=== PATIENT | female | born 1940 | race Caucasian/White ===

== ENCOUNTER 2022-01-22 17:18 | Emergency (ER) | payer OTHER, SELFPAY ==
[2022-01-22 17:37] VITALS: BP 193/72; PULSE 80; RESP 28; TEMP 37.1; O2SAT 94; BMI 22.6
--- NOTE | 2022-01-22 17:50 | CRLHL7_ITS ---
For Patients: As a result of the Century Cures Act, medical imaging exams and procedure reports are released immediately into your electronic medical record. You may view this report before your referring provider. If you have questions, please contact your health care provider. INDICATION: COPD. COMPARISON: July 23, 2021. TECHNIQUE: Single chest radiograph. FINDINGS: Stable cardiomediastinal contours. No new pulmonary opacities. Probable mild bibasilar scarring/atelectasis. No significant pleural effusion or pneumothorax. IMPRESSION: No acute cardiopulmonary abnormality. Dictated by Evan Taylor MD @ 01/22/2022 6:33:44 PM (Electronically Signed)
--- NOTE | 2022-01-22 17:52 | ED.GENADULT ---
HPI - General Adult General Time Seen by Provider: 17:53 Date Seen: 01/22/22 Chief complaint: Shortness of Breath/Dyspnea Stated complaint: Shortness of breath Time Seen by Provider: 01/22/22 17:39 Source: patient Mode of arrival: ambulatory Limitations: no limitations History of Present Illness HPI narrative: Patient is a 81 white female with history of COPD, she has taken Spiriva and albuterol inhalers, she has not used her nebulizer today. She reports she has had a cough and worsening breathing over the last week. She has taken some home COVID test has been negative. She has taken steroids in the past that have helped her. She has had no chest pain, no production to her cough other than usual yellow to whitish material, no leg swelling, no edema, no history of clotting or bleeding problems no coronary artery history. Related Data Home Medications Medication Instructions Recorded Confirmed albuterol sulfate 90 mcg/actuation 1 puff inhalation PRN 01/22/22 aerosol inhaler cyanocobalamin (vitamin B-12) 1,000 mcg PO DAILY 01/22/22 01/22/22 1,000 mcg tablet fluticasone 250 mcg-salmeterol 50 1 inh inhalation DAILY 01/22/22 01/22/22 mcg/dose blistr powdr for inhalation ipratropium 0.5 mg-albuterol 3 mg 3 ml inhalation PRN 01/22/22 (2.5 mg base)/3 mL nebulization soln levothyroxine 75 mcg tablet 75 mcg PO DAILY 01/22/22 01/22/22 metoprolol succinate 100 mg 100 mg PO DAILY 01/22/22 01/22/22 tablet,extended release 24 hr omeprazole 20 mg capsule,delayed 20 mg PO PRN 01/22/22 release tiotropium bromide 18 mcg capsule 1 cap inhalation DAILY 01/22/22 01/22/22 with inhalation device (Spiriva with HandiHaler) Previous Rx's Medication Instructions Recorded doxycycline hyclate 100 mg capsule 100 mg PO BID 7 days #14 caps 01/22/22 prednisone 20 mg tablet 20 mg PO BID #10 tabs 01/22/22 Allergies Allergy/AdvReac Type Severity Reaction Status Date / Time No Known Drug Allergies Allergy Verified 01/22/22 17:42 Review of Systems Status of ROS: Reports: 10 or more systems reviewed and unremarkable except as noted in History and below PFSH PFSH Social History Smoking Status: Former smoker How often do you have a drink containing alcohol: never AUDIT-C Alcohol total score: 0 Non-prescribed substance use: denies use Exam Narrative: Exam Narrative: Objective: Patient's vital signs show elevated blood pressure, afebrile, O2 sat 94% on room air. She is noncyanotic, she does have a little bit of audible wheezing HEENT is unremarkable Chest is wheezing in the mid to lower lung hartman no rales noted Heart rhythm regular 2/6 systolic murmur Abdomen benign soft Extremities are no edema neurologic nonfocal, good peripheral perfusion Neurologic is nonfocal Const: Vital Signs, click to edit/add: Vital Signs - 24 hr 01/22/22 17:37 Temperature 98.7 F Pulse Rate [Right Pulse Oximeter] 80 Respiratory Rate 28 H Blood Pressure [Ri ght Upper Arm] 193/72 H Pulse Oximetry 94 Oxygen Delivery Me thod Room Air Course Vital Signs Vital signs: Initial Vital Signs Temperature 98.7 F 01/22/22 17:37 Temperature Source Temporal Artery Scan 01/22/22 17:37 Pulse Rate 80 01/22/22 17:37 Respiratory Rate 28 H 01/22/22 17:37 Blood Pressure 193/72 H 01/22/22 17:37 Blood Pressure Mean 112 01/22/22 17:37 Blood Pressure Position Sitting 01/22/22 17:37 Pulse Oximetry 94 01/22/22 17:37 Oxygen Delivery Method 01/22/22 17:37 Vital Signs Temperature 98.7 F 01/22/22 17:37 Pulse Rate 80 01/22/22 17:37 Respiratory Rate 28 H 01/22/22 17:37 Blood Pressure 193/72 H 01/22/22 17:37 Pulse Oximetry 94 01/22/22 17:37 Oxygen Delivery Method 01/22/22 17:37 Temperature 98.7 F 01/22/22 17:37 Pulse Rate 80 01/22/22 17:37 Respiratory Rate 28 H 01/22/22 17:37 Blood Pressure 193/72 H 01/22/22 17:37 Pulse Oximetry 94 01/22/22 17:37 Oxygen Delivery Method 01/22/22 17:37 Medical Decision Making MDM Narrative Medical decision making narrative: The patient has history of COPD, she takes inhalers, at this point I think she would benefit from doxycycline orally as well as prednisone 50 mg orally and a course of prednisone, will give her a DuoNeb in [place] she feels. She might be able to continue her nebs at home and make some improvement with medications. Will see how she responds. Addendum: The patient's x-ray by my review review looks unremarkable other than COPD hyperinflation dairy changes. She feels substantially better after her neb. her O2 sat is adequate. I think she will improve with the prednisone and the doxycycline, she can use her nebulizer, and inhalers at home. Update her regular doctor within the next 24-48 hours her symptoms, there is a chance that she may continue to have difficulty breathing and she needs to return and she agrees to do so. With the patient's nice response and response to nebulization, I would recommend she use her home nebulizer as well and she agrees to do so. She feels much more comfortable and I think the prednisone will help her, she does not improve her has requesting symptoms again she can return to the ED at any time. Lab Data Labs: Lab Results 01/22/22 Range/Units 17:52 SARS-CoV-2 (PCR) Negative SARS-CoV-2 (Negative) Influenza Type A (PCR) Negative PCR FLU A (Negative) Influenza Type B (PCR) Negative PCR FLU B (Negative) RSV (PCR) Negative PCR RSV (Negative) Discharge Plan Discharge Clinical Impression: Acute exacerbation of chronic obstructive pulmonary disease Patient Disposition: Home, Self-Care Condition: Improved Additional Instructions: Continue home inhalers, doxycycline 100 mg b.i.d. x7 days, prednisone 20 mg b.i.d. x5 days, return if problems concerns worsening, follow-up with primary care in 48 hours Activity Level: Light activity Discharge Diet: Regular Prescriptions: New prednisone 20 mg tablet 20 mg PO BID Qty: 10 0RF doxycycline hyclate 100 mg capsule 100 mg PO BID 7 Days Qty: 14 0RF No Action albuterol sulfate 90 mcg/actuation HFA aerosol inhaler 1 puff INHALATION PRN cyanocobalamin (vitamin B-12) 1,000 mcg tablet 1,000 mcg PO DAILY fluticasone propion-salmeterol 250-50 mcg/dose blister with device 1 inh INHALATION DAILY ipratropium-albuterol 0.5 mg-3 mg(2.5 mg base)/3 mL solution for nebulization 3 ml INHALATION PRN levothyroxine 75 mcg tablet 75 mcg PO DAILY metoprolol succinate 100 mg tablet extended release 24 hr 100 mg PO DAILY omeprazole 20 mg capsule,delayed release(DR/EC) 20 mg PO PRN Spiriva with HandiHaler 18 mcg capsule, w/inhalation device 1 cap INHALATION DAILY Stand Alone Forms: [facility] Info Instructions
[2022-01-22] MEDS: DOXYCYCLINE HYCLATE 100 MG CAPSULE PO (18:10)
[2022-01-22] MEDS: IPRAT-ALBUT 0.5-2.5 MG/3 ML NEB 1 NEB IH (18:10)
[2022-01-22] MEDS: predniSONE 10 MG TABLET 50 MG PO (18:10)
--- NOTE | 2022-01-22 18:53 | ED.NURSE ---
pt feeling better after neb. sitting up on edge of bed.
[2022-01-22 19:04] LABS: PCR FLU A Negative PCR FLU A (Negative); PCR FLU B Negative PCR FLU B (Negative); PCR RSV Negative PCR RSV (Negative)
[2022-01-22 19:13] LABS: SARS PCR* Negative SARS-CoV-2 (Negative)
== END 2022-01-22 19:20 | disposition home or self-care (01) ==
LOC: ED 19:19
PROVIDERS: Emergency Provider Family Medicine; PCP Family Medicine
DX: J44.1 Chronic obstructive pulmonary disease with (acute) exacerbation (principal)
CPT/HCPCS: 71045; 87502; 87634; 87635; 94640; 99284; A9270; J7512

== ENCOUNTER 2022-03-03 19:12 | Emergency (ER) | payer OTHER, SELFPAY ==
[2022-03-03] VITALS (11 sets, daily range): BP systolic 194–215; BP diastolic 95–108; PULSE 74–92; RESP 18; TEMP 37.1; O2SAT 88–99; BMI 24.5
--- NOTE | 2022-03-03 19:34 | ED_ITS ---
HPI - General Adult General Time Seen by Provider: 19:34 Date Seen: 03/03/22 Chief complaint: Abdominal Pain Stated complaint: Sharp Pain Right Side,Vomiting Time Seen by Provider: 03/03/22 19:34 Source: patient, family and RN notes reviewed Mode of arrival: ambulatory Limitations: no limitations History of Present Illness HPI narrative: Patient is an 82-year-old female coming in with right-sided abdominal pain associated with 2 episodes of emesis recently. She did eat and drink this morning. This afternoon started with abdominal pain that is worsening. She is now nauseated, had 2 episodes of emesis prior to arrival. Had a normal bowel movement yesterday. Has not passing stool today. Has never had any abdominal surgeries. No urinary symptoms. No fevers or chills. She states she has had COVID before, is fully vaccinated for it. Has not been sick with any respiratory symptoms. No stool today, not passing gas today. Patient denies feeling bloated. Related Data Home Medications Medication Instructions Recorded Confirmed albuterol sulfate 90 mcg/actuation 1 puff inhalation PRN 01/22/22 aerosol inhaler cyanocobalamin (vitamin B-12) 1,000 mcg PO DAILY 01/22/22 01/22/22 1,000 mcg tablet fluticasone 250 mcg-salmeterol 50 1 inh inhalation DAILY 01/22/22 01/22/22 mcg/dose blistr powdr for inhalation ipratropium 0.5 mg-albuterol 3 mg 3 ml inhalation PRN 01/22/22 (2.5 mg base)/3 mL nebulization soln levothyroxine 75 mcg tablet 75 mcg PO DAILY 01/22/22 01/22/22 metoprolol succinate 100 mg 100 mg PO DAILY 01/22/22 01/22/22 tablet,extended release 24 hr omeprazole 20 mg capsule,delayed 20 mg PO PRN 01/22/22 release tiotropium bromide 18 mcg capsule 1 cap inhalation DAILY 01/22/22 01/22/22 with inhalation device (Spiriva with HandiHaler) Previous Rx's Medication Instructions Recorded doxycycline hyclate 100 mg capsule 100 mg PO BID 7 days #14 caps 01/22/22 prednisone 20 mg tablet 20 mg PO BID #10 tabs 01/22/22 Allergies Allergy/AdvReac Type Severity Reaction Status Date / Time No Known Drug Allergies Allergy Verified 01/22/22 17:42 Review of Systems Status of ROS: Reports: 10 or more systems reviewed and unremarkable except as noted in History and below PFSH [facility] Social History Smoking Status: Former smoker How often do you have a drink containing alcohol: never AUDIT-C Alcohol total score: 0 Non-prescribed substance use: denies use Exam Const: Vital Signs, click to edit/add: Vital Signs - 24 hr 03/03/22 19:36 03/03/22 19:36 03/03/22 19:48 Temperature 98.8 F Pulse Rate Pulse Rate [Right Pulse Oximeter] 92 Respiratory Rate 18 Blood Pressure Blood Pressure [Ri ght Upper Arm] 208/108 H Pulse Oximetry 96 96 88 Oxygen Delivery Me thod Room Air Room Air 03/03/22 19:50 03/03/22 20:04 03/03/22 20:16 Temperature Pulse Rate 81 Pulse Rate [Right Pulse Oximeter] Respiratory Rate Blood Pressure 215/95 H Blood Pressure [Ri ght Upper Arm] Pulse Oximetry 92 98 Oxygen Delivery Me thod Nasal Cannula Documenting provider has reviewed patient's vital signs: yes Common normals: oriented x3, no limitations and alert General appearance: cooperati ve, well kempt, in distress (Moaning at times in discomfort) and ill appearing Nutritional appearance: overweight HENMT: Common normals: normocephalic, head/scalp atraumatic, hearing grossly normal bilaterally, external ears normal, external nose normal, nasal mucous membranes and turbinates normal, moist oral mucous membranes, oropharynx normal, dentition normal and gingiva normal Head and scalp: normocephalic and atraumatic Nose: external nose normal and nasal mucous membranes and turbinates normal External ear: external ears normal Eye: Common normals: PERRL, EOMs intact bilaterally, conjunctivae normal and no scleral icterus Conjunctiva: conjunctiva(e) normal Pupil: PERRL Neck & C-Spine: Common normals: full ROM, no lymphadenopathy, supple, no meningeal signs, no JVD and thyroid normal Thyroid: thyroid normal Resp: Common normals: normal respiratory effort, no retractions, no use of accessory muscles and clear to auscultation bilaterally Auscultation: clear to auscultation bilaterally Cardio: Common normals: no JVD, regular rate, regular rhythm, S1 normal heart sound, S2 normal heart sound, no gallops, no clicks and no murmurs Rate: regular rate Rhythm: regular rhythm Heart sounds: S1 normal and S2 normal GI: Other: Belly seems distended, do not hear any bowel sounds when I listen. Has some mild right upper quadrant tenderness that progresses to more significant right lower quadrant tenderness on palpation. Do not feel any masses but she is guarding a bit, no rebound at this time. Neuro: Common normals: oriented x3 Sensorium/orientation: alert Meningeal signs: no meningeal signs Psych: Appearance: well kempt Course Course Hospital Course: This patient obviously needs a CT scan, will be ordered with IV contrast of abdomen and pelvis. She will be on cardiac monitoring, pulse oximetry. Will do influenza and COVID screening on her. Will treat her with 500 mL normal saline, 50 mcg IV fentanyl and 4 mg IV Zofran. She will get full complement of labs. Obstructive abdominal pathology certainly is at forefront in my mind here. She however has not had abdominal surgery before on questioning. This certainly could be an ileus, could be appendicitis. We need imaging to rule out an acute surgical abdomen here. We will try to make her more comfortable in the interim. Reevaluation(s) Reevaluation #1: Have just reviewed with patient and her family member that her CT showing a kidney stone. It is larger at 7 mm. She has never had kidney stones diagnosed before. She also is testing positive for COVID. She states she had COVID before actually in July of this year, I was thinking she maybe told me the fall but it was actually July of this year. We will test an antigen on her. She states she is fully vaccinated for COVID. She was in her doctor's office this week but states they did not test. She was not in for illness per report. I did subsequently call [facility] and their [place] facilities are [place], on [place]. I have subsequently talked to our hospitalist. We may have to work on pain management and then get her outpatient urology follow-up. Our hospitalist Dr. Juarez will get back to me regarding this patient. Time: 20:55 Reevaluation #2: Patient was taken by staff to the bathroom to collect urinalysis. The sample had a large round stone in it, certainly looked about 7 mm. We did show it to the patient and her family member. She states she is feeling fine now. She surprisingly has passed a 7 mm stone. We will obtain her urinalysis, I have added on a stone analysis. She is not going to need hospitalization at this point. We still have the unanswered question whether not she has COVID, patient states she is feeling fine as far as respiratory status. Her only pain was the abdominal pain which is now gone. We did collect a antigen on her. If the antigen comes back negative and she is asymptomatic, would have patient follow her symptoms for few days. Time: 21:11 Vital Signs Vital signs: Initial Vital Signs Temperature 98.8 F 03/03/22 19:36 Temperature Source Temporal Artery Scan 03/03/22 19:36 Pulse Rate 92 03/03/22 19:36 Respiratory Rate 18 03/03/22 19:36 Blood Pressure 208/108 H 03/03/22 19:36 Blood Pressure Mean 141 03/03/22 19:36 Blood Pressure Position Supine 03/03/22 19:36 Pulse Oximetry 96 03/03/22 19:36 Oxygen Delivery Method 03/03/22 19:36 Vital Signs Temperature 98.8 F 03/03/22 19:36 Pulse Rate 92 03/03/22 19:36 Respiratory Rate 18 03/03/22 19:36 Blood Pressure 208/108 H 03/03/22 19:36 Pulse Oximetry 96 03/03/22 19:36 Oxygen Delivery Method 03/03/22 19:36 Temperature 98.8 F 03/03/22 19:36 Pulse Rate 81 03/03/22 20:16 Respiratory Rate 18 03/03/22 19:36 Blood Pressure 215/95 H 03/03/22 20:04 Pulse Oximetry 98 03/03/22 20:16 Oxygen Delivery Method 03/03/22 19:50 Medical Decision Making Lab Data Lab results reviewed: Yes I reviewed the patient's lab results Labs: Lab Results 03/03/22 03/03/22 03/03/22 Range/Units 19:30 19:37 19:40 WBC 15.06 H (4.50-11.00) K/uL RBC 5.47 H (4.00-5.20) m/uL Hgb 14.5 (12.0-16.0) gm/dL Hct 46.9 (33.0-51.0) % MCV 86 (80-100) fL MCH 27 (26-34) pg MCHC 31 L (32-36) gm/dL RDW Coeff of Ministerio 14.5 (11.5-15.5) % Plt Count 349 (140-440) K/uL Neut % (Auto) 86.8 H (42.0-72.0) % Lymph % (Auto) 5.6 L (20-44) % Jerauld % (Auto) 6.2 (0.0-11.0) % Eos % (Auto) 0.7 (0.0-7.0) % Baso % (Auto) 0.2 (0.0-3.0) % Neut # (Auto) 13.10 H (1.7-7.0) K/uL Lymph # (Auto) 0.80 L (0.90-2.90) K/uL Jerauld # (Auto) 0.90 (0.00-0.90) K/UL Eos # (Auto) 0.10 (0.00-0.50) K/uL Baso # (Auto) 0.00 (0.00-0.30) K/uL Abs Immat Gran (auto) 0.10 (0.00-0.30) K/uL Imm/Tot Granulo (auto) 0.5 % Sodium (135-149) mmol/L Potassium (3.6-5.1) mmol/L Chloride (96-114) mmol/L Carbon Dioxide (20-32) mmol/L BUN (7-30) mg/dL Creatinine (0.5-1.5) mg/dL Estimated Creat Clear Estimated GFR ml/min Glucose (60-115) mg/dL Lactate (0.5-1.9) mmol/L Calcium (8.4-10.6) mg/dL Total Bilirubin (0.1-1.5) mg/dL AST (12-35) U/L ALT (4-35) U/L Alkaline Phosphatase (40-150) U/L C-Reactive Protein (0.5-1.0) mg/dL Total Protein (6.0-8.3) g/dL Albumin (3.3-5.0) g/dL Lipase (23-300) U/L SARS-CoV-2 (PCR) POSITIVE SARS-CoV-2 A (Negative) Influenza Type A (PCR) Negative PCR FLU A (Negative) Influenza Type B (PCR) Negative PCR FLU B (Negative) POC Creatinine 0.8 (0.6-1.3) mg/dl 03/03/22 03/03/22 Range/Units 19:40 19:40 WBC (4.50-11.00) K/uL RBC (4.00-5.20) m/uL Hgb (12.0-16.0) gm/dL Hct (33.0-51.0) % MCV (80-100) fL MCH (26-34) pg MCHC (32-36) gm/dL RDW Coeff of Ministerio (11.5-15.5) % Plt Count (140-440) K/uL Neut % (Auto) (42.0-72.0) % Lymph % (Auto) (20-44) % Jerauld % (Auto) (0.0-11.0) % Eos % (Auto) (0.0-7.0) % Baso % (Auto) (0.0-3.0) % Neut # (Auto) (1.7-7.0) K/uL Lymph # (Auto) (0.90-2.90) K/uL Jerauld # (Auto) (0.00-0.90) K/UL Eos # (Auto) (0.00-0.50) K/uL Baso # (Auto) (0.00-0.30) K/uL Abs Immat Gran (auto) (0.00-0.30) K/uL Imm/Tot Granulo (auto) % Sodium 140 (135-149) mmol/L Potassium 4.0 (3.6-5.1) mmol/L Chloride 108 (96-114) mmol/L Carbon Dioxide 26 (20-32) mmol/L BUN 20 (7-30) mg/dL Creatinine 0.7 (0.5-1.5) mg/dL Estimated Creat Clear 39.20 Estimated GFR 85 ml/min Glucose 130 H (60-115) mg/dL Lactate 1.4 (0.5-1.9) mmol/L Calcium 9.4 (8.4-10.6) mg/dL Total Bilirubin 0.5 (0.1-1.5) mg/dL AST 34 (12-35) U/L ALT 24 (4-35) U/L Alkaline Phosphatase 96 (40-150) U/L C-Reactive Protein 0.5 (0.5-1.0) mg/dL Total Protein 7.2 (6.0-8.3) g/dL Albumin 4.5 (3.3-5.0) g/dL Lipase 85 (23-300) U/L SARS-CoV-2 (PCR) (Negative) Influenza Type A (PCR) (Negative) Influenza Type B (PCR) (Negative) POC Creatinine (0.6-1.3) mg/dl Imaging Data CT scan - abdomen: Attestation: I have reviewed the pertinent imaging results. Radiologist's impression: Patient: NEEL BARNES Facility:?[facility] Patient ID:?[id number] Site Patient ID:?[id number]. Site :?[id number] Study:?CT Abdomen/Pelvis -03/03/2022 8:19:21 PM Ordering Physician:Estrella Barragan Final Report: INDICATION: Sharp right-sided abdominal pain TECHNIQUE: CT abdomen and pelvis acquired with IV contrast. 75 cc of Isovue 370 contrast was administered intravenously. COMPARISON: None. FINDINGS: The visualized portions of the lung bases are clear. The liver, spleen, pancreas and adrenal glands are unremarkable. The gallbladder is nondistended. Mild right hydronephrosis and hydroureter with a 0.7 x 0.5 cm obstructing in the distal right ureter near the ureterovesical junction. Mild perinephric inflammatory change on the right. Negative for left hydronephrosis or nephrolithiasis. The bladder is partially distended and unremarkable. Small hiatal hernia. There are no dilated loops of small bowel to suggest obstruction.The appendix is normal. Numerous colonic diverticuli without adjacent inflammatory change.There is no intraperitoneal free air or fluid. Small fat containing bilateral inguinal hernias. Circumferential atherosclerotic calcification of the abdominal aorta and common iliacs. Bones are unremarkable. IMPRESSION: Mild right hydronephrosis and hydroureter with a 7 mm obstructing stone in the distal right ureter near the ureterovesical junction. Please note that all CT scans at this facility use dose modulation, iterative reconstruction, and/or weight-based dosing when appropriate to reduce radiation dose to as low as reasonably achievable. Dictated by Renetta Yang MD @ 03/03/2022 8:38:20 PM (Electronic Signature) ECG Data Attestation: I personally reviewed and interpreted this ECG as follows: (Sinus rhythm, 60 beats per minute. Right bundle branch block. No acute ST segment or T-wave changes. QT corrected 474 milliseconds.) Prior ECG tracings: not available for review Critical Care Time Critical Care Time Critical Care Time: No Discharge Plan Discharge Clinical Impression: Real time reverse transcriptase PCR positive for COVID-19 virus, Renal colic on right side Patient Disposition: Home, Self-Care Condition: Stable Instructions: Kidney Stones (ED), Renal Colic (ED), COVID-19 (Coronavirus Disease 2019) (ED) Additional Instructions: We have sent the stone he passed for stone analysis. We can fax that report to your primary care provider in [place] once it is back. You need to schedule a follow-up with your primary care provider this next week. Review that you are in the ER for a kidney stone. As far as the positive COVID PCR, it remains unclear if you actually have COVID or not. You are otherwise not symptomatic with any of the classic features of COVID. I would recommend quarantine and observing for any development of symptoms over the next few days. If you do start to develop symptoms of COVID, do recommend being seen for re-evaluation. Activity Level: Activity as Tolerated Discharge Diet: Regular Prescriptions: No Action albuterol sulfate 90 mcg/actuation HFA aerosol inhaler 1 puff INHALATION PRN cyanocobalamin (vitamin B-12) 1,000 mcg tablet 1,000 mcg PO DAILY fluticasone propion-salmeterol 250-50 mcg/dose blister with device 1 inh INHALATION DAILY ipratropium-albuterol 0.5 mg-3 mg(2.5 mg base)/3 mL solution for nebulization 3 ml INHALATION PRN levothyroxine 75 mcg tablet 75 mcg PO DAILY metoprolol succinate 100 mg tablet extended release 24 hr 100 mg PO DAILY omeprazole 20 mg capsule,delayed release(DR/EC) 20 mg PO PRN Spiriva with HandiHaler 18 mcg capsule, w/inhalation device 1 cap INHALATION DAILY prednisone 20 mg tablet 20 mg PO BID Qty: 10 0RF doxycycline hyclate 100 mg capsule 100 mg PO BID 7 Days Qty: 14 0RF Follow Up/Referrals: Mica Sellers DO [Primary Care Provider] - Stand Alone Forms: [facility] Info Instructions
[2022-03-03] MEDS: ONDANSETRON 2 MG/ML inj 4 MG IVP (19:46)
[2022-03-03] MEDS: fentaNYL 100 MCG/2 ML inj 50 MCG IVP (19:46)
[2022-03-03] MEDS: 0.9 % SODIUM CHLORIDE 500 ML 500 ML IV (19:46)
[2022-03-03 19:50] LABS: Creatinine, Point-of-Care* 0.8 mg/dl (0.6-1.3)
[2022-03-03 19:54] LABS: Lactate* 1.4 mmol/L (0.5-1.9)
[2022-03-03 19:57] LABS: Basophils Percent Auto 0.2 % (0.0-3.0); Eosinophils Percent Auto 0.7 % (0.0-7.0); Hematocrit 46.9 % (33.0-51.0); Hemoglobin* 14.5 gm/dL (12.0-16.0); Immature Granulocytes Pct Auto 0.5 %; Lymphocytes Percent Auto 5.6 % (20-44); Mean Corpuscular HGB Conc 31 gm/dL (32-36); Mean Corpuscular Hemoglobin 27 pg (26-34); Mean Corpuscular Volume 86 fL (80-100); Monocytes Percent Auto 6.2 % (0.0-11.0); Neutrophils Percent Auto 86.8 % (42.0-72.0); Platelet Count* 349 K/uL (140-440); RDW Coefficient of Variation % 14.5 % (11.5-15.5); Red Blood Count 5.47 m/uL (4.00-5.20); White Blood Count* 15.06 K/uL (4.50-11.00)
[2022-03-03 20:07] LABS: Slide Review Reflex No
[2022-03-03 20:15] LABS: Albumin* 4.5 g/dL (3.3-5.0); Chloride* 108 mmol/L (96-114); Sodium* 140 mmol/L (135-149)
[2022-03-03 20:17] LABS: Creatinine* 0.7 mg/dL (0.5-1.5); Estimated Glomerular Filt Rate 85 ml/min
[2022-03-03 20:18] LABS: Alanine Aminotransferase* 24 U/L (4-35); Alkaline Phosphatase* 96 U/L (40-150); Aspartate Amino Transferase* 34 U/L (12-35); Bilirubin Total* 0.5 mg/dL (0.1-1.5); Blood Urea Nitrogen* 20 mg/dL (7-30); Carbon Dioxide* 26 mmol/L (20-32); Glucose* 130 mg/dL (60-115); Lipase* 85 U/L (23-300); Total Protein* 7.2 g/dL (6.0-8.3)
[2022-03-03 20:19] LABS: Calcium* 9.4 mg/dL (8.4-10.6)
[2022-03-03 20:21] LABS: C Reactive Protein* 0.5 mg/dL (0.5-1.0)
[2022-03-03 20:36] LABS: PCR FLU A Negative PCR FLU A (Negative); PCR FLU B Negative PCR FLU B (Negative)
[2022-03-03 20:38] LABS: SARS PCR* POSITIVE SARS-CoV-2 (Negative)
[2022-03-03 21:17] LABS: SARS Antigen* negative (Negative)
[2022-03-03 21:20] LABS: Appearance Urine Slightly Cloudy (Clear); Bilirubin Urine Negative (Negative); Blood Urine 2+ (Negative); Color Urine Light yellow (Yellow); Glucose Urine Negative (Negative); Ketones Urine Negative (Negative); Leukocyte Esterase Urine Negative (Negative); Nitrite Urine Negative (Negative); Protein Urine Negative (Negative); Specific Gravity Urine 1.015 (1.000-1.030); Urobilinogen Urine 0.2 (0.2-1.0); pH Urine 7.5 (5.0-8.5)
[2022-03-03 22:02] LABS: Squamous Epithelial Cell Urine Few (None-Few); WBC Urine 0-2 (0-5)
[2022-03-08 10:09] LABS: Calculi Mass 101 mg
== END 2022-03-03 21:55 | disposition home or self-care (01) ==
PROVIDERS: Emergency Provider Family Medicine; PCP Family Medicine
DX: N23 Unspecified renal colic (principal); U07.1 COVID-19
CPT/HCPCS: 36415; 74177; 80053; 81001; 82365; 82565; 83605; 83690; 85025; 86140; 87426; 87631; 93005; 94761; 96374; 96375; 99284; 99285; J2405; J3010; J7120; Q9967

== ENCOUNTER 2023-10-20 10:59 | Emergency (ER) | payer OTHER, SELFPAY ==
[2023-10-20] VITALS (11 sets, daily range): BP systolic 183–215; BP diastolic 95–115; PULSE 83–99; RESP 18; TEMP 35.7; O2SAT 87–96; BMI 24.2
--- NOTE | 2023-10-20 11:17 | CRLHL7_ITS ---
For Patients: As a result of the Century Cures Act, medical imaging exams and procedure reports are released immediately into your electronic medical record. You may view this report before your referring provider. If you have questions, please contact your health care provider. INDICATION: Jennifer TECHNIQUE: Chest 1 view. COMPARISON: December 2021 FINDINGS: Cardiovascular and mediastinum: Heart size and vasculature are normal in caliber and appearance. Mediastinum is within normal limits. Lungs and pleural space: Lungs are clear. No sign of infiltrate or mass. No sign of pleural effusion. No pneumothorax. Bones and soft tissues: No significant findings. IMPRESSION: Unremarkable chest. Dictated by Jm Ashton MD @ 10/20/2023 12:04:02 PM (Electronically Signed)
--- NOTE | 2023-10-20 11:19 | ED.GENADULT ---
HPI - General Adult General Chief complaint: Shortness of Breath/Dyspnea Stated complaint: COPD, difficulty breathing Time Seen by Provider: 10/20/23 11:02 History of Present Illness HPI narrative: Patient is a 83-year-old woman who presents with shortness of breath occurred this morning. Patient has had no fevers no chills no night sweats. She does have a history of COPD but she quit smoking 8 years ago. She has no other major complaints such as lower extremity edema orthopnea PND or chest pain. Patient's initial oxygen saturation was 90% on room air but is currently 96% on room air. She has no other major complaints or concerns and otherwise been in her usual state of health. Related Data Home Medications ?Medication ?Instructions ?Recorded ?Confirmed albuterol sulfate 90 mcg/actuation 1 puff inhalation PRN 01/22/22 aerosol inhaler cyanocobalamin (vitamin B-12) 1,000 mcg PO DAILY 01/22/22 01/22/22 1,000 mcg tablet fluticasone 250 mcg-salmeterol 50 1 inh inhalation DAILY 01/22/22 01/22/22 mcg/dose blistr powdr for inhalation ipratropium 0.5 mg-albuterol 3 mg 3 ml inhalation PRN 01/22/22 (2.5 mg base)/3 mL nebulization soln levothyroxine 75 mcg tablet 75 mcg PO DAILY 01/22/22 10/20/23 metoprolol succinate 100 mg 100 mg PO DAILY 01/22/22 10/20/23 tablet,extended release 24 hr omeprazole 20 mg capsule,delayed 20 mg PO PRN 01/22/22 release tiotropium bromide 18 mcg capsule 1 cap inhalation DAILY 01/22/22 10/20/23 with inhalation device (Spiriva with HandiHaler) Previous Rx's ?Medication ?Instructions ?Recorded doxycycline hyclate 100 mg capsule 100 mg PO BID 7 days #14 caps 01/22/22 prednisone 20 mg tablet 20 mg PO BID #10 tabs 01/22/22 Allergies Allergy/AdvReac Type Severity Reaction Status Date / Time No Known Drug Allergies Allergy Verified 01/22/22 17:42 Review of Systems Status of ROS: Reports: 10 or more systems reviewed and unremarkable except as noted in History and below [facility] Medical History COPD (chronic obstructive pulmonary disease) ?J44.9 - Chronic obstructive pulmonary disease, unspecified (ICD-10) Social History Smoking Status: Former smoker How often do you have a drink containing alcohol: never AUDIT-C Alcohol total score: 0 Non-prescribed substance use: denies use Exam Narrative: Exam Narrative: EXAM GENERAL: Patient appears comfortable and well. EYES: No scleral icterus. LYMPH: No supraclavicular or cervical lymphadenopathy. SKIN: Visible skin seen during exam normal or with benign process only. EXT: No dependent lower extremity pedal edema. HEART: Regular rate and rhythm with no murmurs, rubs, or gallops. LUNGS: Decreased breath sounds with expiratory wheezes in the based on the left. ABD: Soft, non tender, non distended. PSYCH: Good eye contact, speech is not pressured. Const: Vital Signs, click to edit/add: Vital Signs - 24 hr 10/20/23 11:09 10/20/23 11:09 10/20/23 11:09 Temperature 96.3 F L Pulse Rate 94 94 Pulse Rate [Left P ulse Oximeter] 94 Respiratory Rate 18 Blood Pressure 215/115 H 215/115 H Blood Pressure [Le ft Upper Arm] 215/115 H Pulse Oximetry 90 96 96 Oxygen Delivery Me thod Room Air 10/20/23 11:10 10/20/23 11:11 10/20/23 11:15 Temperature Pulse Rate 95 93 85 Pulse Rate [Left P ulse Oximeter] Respiratory Rate Blood Pressure 183/95 H Blood Pressure [Le ft Upper Arm] Pulse Oximetry 96 96 96 Oxygen Delivery Me thod 10/20/23 11:31 10/20/23 11:32 10/20/23 11:45 Temperature Pulse Rate 97 92 83 Pulse Rate [Left P ulse Oximeter] Respiratory Rate Blood Pressure 186/102 H Blood Pressure [Le ft Upper Arm] Pulse Oximetry 88 89 93 Oxygen Delivery Me thod Course Course ED Course: Chest x-ray EKG D-dimer troponin CBC basic metabolic panel viral swab pending. Vital Signs Vital signs: Initial Vital Signs Temperature 96.3 F L 10/20/23 11:09 Temperature Source Temporal Artery Scan 10/20/23 11:09 Pulse Rate 94 10/20/23 11:09 Pulse Rhythm Regular 10/20/23 11:09 Pulse Strength 3+ Normal 10/20/23 11:09 Respiratory Rate 18 10/20/23 11:09 Blood Pressure 215/115 H 10/20/23 11:09 Blood Pressure Mean 148 H 10/20/23 11:09 Blood Pressure Position Sitting 10/20/23 11:09 Pulse Oximetry 90 10/20/23 11:09 Oxygen Delivery Method Room Air 10/20/23 11:09 Vital Signs Temperature 96.3 F L 10/20/23 11:09 Pulse Rate 94 10/20/23 11:09 Respiratory Rate 18 10/20/23 11:09 Blood Pressure 215/115 H 10/20/23 11:09 Pulse Oximetry 90 10/20/23 11:09 Oxygen Delivery Method Room Air 10/20/23 11:09 Temperature 96.3 F L 10/20/23 11:09 Pulse Rate 83 10/20/23 11:45 Respiratory Rate 18 10/20/23 11:09 Blood Pressure 186/102 H 10/20/23 11:32 Pulse Oximetry 93 10/20/23 11:45 Oxygen Delivery Method Room Air 10/20/23 11:09 Medical Decision Making MDM Narrative Medical decision making narrative: Patient is 83-year-old woman who presents with shortness of breath. She was short of breath for last day or so. She has a chest x-ray which shows no acute abnormalities. No pulmonary embolism seen on CT. She does have an indeterminate nodule that requires follow-up. Her EKG troponin unremarkable electrolytes unremarkable she did have an elevated D-dimer which led to her CT of the chest which showed no evidence of pulmonary embolism. At this time with her smoking history I do think her diagnosis is COPD exacerbation I did treated with prednisone 20 mg twice a day for 5 days and recommended close outpatient follow-up. She will follow-up with her primary physician this week differential diagnosis includes but not limited to pulmonary embolism pneumonia congestive heart failure acute myocardial infarction COPD exacerbation. Lab Data Labs: Lab Results 10/20/23 10/20/23 Range/Units 11:20 11:27 WBC 8.66 (4.50-11.00) K/uL RBC 5.32 H (4.00-5.20) m/uL Hgb 13.8 (12.0-16.0) gm/dL Hct 44.4 (33.0-51.0) % MCV 84 (80-100) fL MCH 26 (26-34) pg MCHC 31 L (32-36) gm/dL RDW Coeff of Ministerio 13.6 (11.5-15.5) % Plt Count 327 (140-440) K/uL Neut % (Auto) 75.2 H (42.0-72.0) % Lymph % (Auto) 8.8 L (20-44) % Piatt % (Auto) 12.4 H (0.0-11.0) % Eos % (Auto) 3.1 (0.0-7.0) % Baso % (Auto) 0.2 (0.0-3.0) % Neut # (Auto) 6.50 (1.7-7.0) K/uL Lymph # (Auto) 0.80 L (0.90-2.90) K/uL Piatt # (Auto) 1.10 H (0.00-0.90) K/UL Eos # (Auto) 0.27 (0.00-0.50) K/uL Baso # (Auto) 0.02 (0.00-0.30) K/uL Abs Immat Gran (auto) 0.03 (0.00-0.30) K/uL Imm/Tot Granulo (auto) 0.3 % D-Dimer Quant (PE/DVT) 3.82 H (0.00-0.50) ug/ml Sodium 135 (135-149) mmol/L Potassium 3.5 L (3.6-5.1) mmol/L Chloride 102 (96-114) mmol/L Carbon Dioxide 24 (20-32) mmol/L Anion Gap 9 (7-15) mEq/L BUN 8 (7-30) mg/dL Creatinine 0.6 (0.5-1.5) mg/dL Estimated Creat Clear 38.50 Estimated GFR 88 ml/min Glucose 102 (60-115) mg/dL Calcium 9.1 (8.4-10.6) mg/dL Troponin I < 0.01 L (0.01-0.04) ng/mL SARS-CoV-2 (PCR) Negative SARS-CoV-2 (Negative) Influenza Type A (PCR) Negative PCR FLU A (Negative) Influenza Type B (PCR) Negative PCR FLU B (Negative) RSV (PCR) Negative PCR RSV (Negative) Discharge Plan Discharge Clinical Impression: Bronchitis Patient Disposition: Home, Self-Care Condition: Stable Instructions: Acute Bronchitis (ED) Additional Instructions: Prednisone as directed Continue current medications. Follow-up with your doctor this coming week to discuss CT scan ex cetera. Activity Level: No Restrictions Discharge Diet: Regular Prescriptions: No Action albuterol sulfate 90 mcg/actuation HFA aerosol inhaler 1 puff INHALATION PRN cyanocobalamin (vitamin B-12) 1,000 mcg tablet 1,000 mcg PO DAILY fluticasone propion-salmeterol 250-50 mcg/dose blister with device 1 inh INHALATION DAILY ipratropium-albuterol 0.5 mg-3 mg(2.5 mg base)/3 mL solution for nebulization 3 ml INHALATION PRN levothyroxine 75 mcg tablet 75 mcg PO DAILY metoprolol succinate 100 mg tablet extended release 24 hr 100 mg PO DAILY omeprazole 20 mg capsule,delayed release(DR/EC) 20 mg PO PRN tiotropium bromide [Spiriva with HandiHaler] 18 mcg capsule, w/inhalation device 1 cap INHALATION DAILY prednisone 20 mg tablet 20 mg PO BID Qty: 10 0RF doxycycline hyclate 100 mg capsule 100 mg PO BID 7 Days Qty: 14 0RF Follow Up/Referrals: Mica Sellers DO [Primary Care Provider] - Stand Alone Forms: [employer] Info Instructions
[2023-10-20 11:36] LABS: Basophils Absolute Auto 0.02 K/uL (0.00-0.30); Basophils Percent Auto 0.2 % (0.0-3.0); Eosinophils Absolute Auto 0.27 K/uL (0.00-0.50); Eosinophils Percent Auto 3.1 % (0.0-7.0); Hematocrit 44.4 % (33.0-51.0); Hemoglobin* 13.8 gm/dL (12.0-16.0); Immature Granulocytes Abs Auto 0.03 K/uL (0.00-0.30); Immature Granulocytes Pct Auto 0.3 %; Lymphocytes Percent Auto 8.8 % (20-44); Mean Corpuscular HGB Conc 31 gm/dL (32-36); Mean Corpuscular Hemoglobin 26 pg (26-34); Mean Corpuscular Volume 84 fL (80-100); Monocytes Percent Auto 12.4 % (0.0-11.0); Neutrophils Percent Auto 75.2 % (42.0-72.0); Platelet Count* 327 K/uL (140-440); RDW Coefficient of Variation % 13.6 % (11.5-15.5); Red Blood Count 5.32 m/uL (4.00-5.20); White Blood Count* 8.66 K/uL (4.50-11.00)
[2023-10-20 11:43] LABS: Slide Review Reflex No
[2023-10-20 11:48] LABS: Chloride* 102 mmol/L (96-114); Potassium* 3.5 mmol/L (3.6-5.1); Sodium* 135 mmol/L (135-149)
[2023-10-20 11:51] LABS: Anion Gap 9 mEq/L (7-15); Blood Urea Nitrogen* 8 mg/dL (7-30); Carbon Dioxide* 24 mmol/L (20-32); Creatinine* 0.6 mg/dL (0.5-1.5); Estimated Glomerular Filt Rate 88 ml/min
[2023-10-20 11:52] LABS: Calcium* 9.1 mg/dL (8.4-10.6); Glucose* 102 mg/dL (60-115)
[2023-10-20 11:53] LABS: D Dimer Quantitative* 3.82 ug/ml (0.00-0.50)
[2023-10-20 12:05] LABS: Troponin I* < 0.01 ng/mL (0.01-0.04)
--- NOTE | 2023-10-20 12:08 | CRLHL7_ITS ---
For Patients: As a result of the Century Cures Act, medical imaging exams and procedure reports are released immediately into your electronic medical record. You may view this report before your referring provider. If you have questions, please contact your health care provider. INDICATION: Elevated D-dimer. Concern for pulmonary embolism. TECHNIQUE: CT chest PE was acquired with 100 cc Omnipaque 350 IV contrast. COMPARISON: None. FINDINGS: Heart and vasculature: Contrast opacification of the pulmonary arterial tree is adequate. No sign of pulmonary embolism. Heart size is normal. Coronary artery calcifications. Thoracic aorta and pulmonary artery are normal in caliber. Lungs and pleura: Pulmonary emphysema. Scattered atelectasis. Scattered peribronchial thickening. No focal consolidations. Incidental 8 millimeter right inter fissural pulmonary nodule. No pleural effusions, pleural thickening, or pneumothorax. Lymph nodes/mediastinum: Incidental 3.5 centimeter left superior mediastinal lesion, possibly arising from the thyroid gland. No mediastinal, hilar, or axillary adenopathy. Chest wall: No masses. Upper abdomen: No acute or significant findings. Bones: Unremarkable for age. IMPRESSION: No pulmonary embolism. Scattered peribronchial thickening, possibly bronchitis. No focal consolidations. Pulmonary emphysema. Incidental 8 millimeter right inter fissural pulmonary nodule. Recommend dedicated chest CT in 6 months to evaluate for interval change. Incidental 3.5 centimeter left superior mediastinal lesion, possibly exophytic thyroid nodule. This could be further evaluated with outpatient nonemergent thyroid ultrasound if not previously evaluated. Please note that all CT scans at this facility use dose modulation, iterative reconstruction, and/or weight-based dosing when appropriate to reduce radiation dose to as low as reasonably achievable. Dictated by Yaya Salinas MD @ 10/20/2023 1:23:11 PM (Electronically Signed)
[2023-10-20 12:14] LABS: PCR FLU A Negative PCR FLU A (Negative); PCR FLU B Negative PCR FLU B (Negative); PCR RSV Negative PCR RSV (Negative); SARS PCR* Negative SARS-CoV-2 (Negative)
== END 2023-10-20 13:53 | disposition home or self-care (01) ==
PROVIDERS: Emergency Provider Internal Medicine; PCP Family Medicine
DX: J40 Bronchitis, not specified as acute or chronic (principal)
CPT/HCPCS: 36415; 71045; 71275; 80048; 84484; 85025; 85379; 87631; 93005; 99283; 99284; 99285; Q9967

== ENCOUNTER 2023-11-03 13:11 | Emergency (ER) | payer OTHER, SELFPAY ==
[2023-11-03 13:24] VITALS: BP 182/97; PULSE 96; RESP 20; TEMP 37.7; O2SAT 95; BMI 23.9
--- NOTE | 2023-11-03 13:31 | ED_ITS ---
HPI - Arrhythmia/Palpitations General Chief Complaint: Arrhythmia/Palpitations Stated Complaint: AFIB Time Seen by Provider: 11/03/23 13:15 History of Present Illness HPI narrative: Patient is 83-year-old woman with history of COPD hypertension who comes in because she was afraid that she gone into atrial fibrillation. Patient feels an irregular heartbeat. She has had no chest pain no shortness a breath orthopnea no PND. Patient has a known history of COPD quitting smoking 9 years ago. Patient is also admittedly very anxious. 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 Upon arrival she is in sinus rhythm with left axis deviation with occasional PVCs. Related Data Home Medications ?Medication ?Instructions ?Recorded ?Confirmed albuterol sulfate 90 mcg/actuation 1 puff inhalation PRN 01/22/22 aerosol inhaler cyanocobalamin (vitamin B-12) 1,000 mcg PO DAILY 01/22/22 01/22/22 1,000 mcg tablet fluticasone 250 mcg-salmeterol 50 1 inh inhalation DAILY 01/22/22 01/22/22 mcg/dose blistr powdr for inhalation ipratropium 0.5 mg-albuterol 3 mg 3 ml inhalation PRN 01/22/22 (2.5 mg base)/3 mL nebulization soln levothyroxine 75 mcg tablet 75 mcg PO DAILY 01/22/22 10/20/23 metoprolol succinate 100 mg 100 mg PO DAILY 01/22/22 10/20/23 tablet,extended release 24 hr omeprazole 20 mg capsule,delayed 20 mg PO PRN 01/22/22 release tiotropium bromide 18 mcg capsule 1 cap inhalation DAILY 01/22/22 10/20/23 with inhalation device (Spiriva with HandiHaler) Previous Rx's ?Medication ?Instructions ?Recorded doxycycline hyclate 100 mg capsule 100 mg PO BID 7 days #14 caps 01/22/22 prednisone 20 mg tablet 20 mg PO BID #10 tabs 01/22/22 Allergies Allergy/AdvReac Type Severity Reaction Status Date / Time No Known Drug Allergies Allergy Verified 01/22/22 17:42 Review of Systems Status of ROS: Reports: 10 or more systems reviewed and unremarkable except as noted in History and below [facility] Medical History COPD (chronic obstructive pulmonary disease) ?J44.9 - Chronic obstructive pulmonary disease, unspecified (ICD-10) Social History Smoking Status: Former smoker How often do you have a drink containing alcohol: never AUDIT-C Alcohol total score: 0 Non-prescribed substance use: denies use Exam Narrative: Exam Narrative: EXAM GENERAL: Patient appears comfortable and well. EYES: No scleral icterus. ENT: Tympanic membranes and oropharynx normal. THYROID: no thyroid nodules or thyromegaly. LYMPH: No supraclavicular or cervical lymphadenopathy. SKIN: Visible skin seen during exam normal or with benign process only. EXT: No dependent lower extremity pedal edema. HEART: Regular rate and rhythm with occasional irregular beat. LUNGS: Clear to auscultation bilaterally with no crackles or wheezes. ABD: Soft, non tender, non distended. PSYCH: Good eye contact, speech is not pressured. Const: Vital Signs, click to edit/add: Vital Signs - 24 hr 11/03/23 13:24 Temperature 99.8 F H Pulse Rate [Pulse Oximeter] 96 Respiratory Rate 20 Blood Pressure [Le ft Upper Arm] 182/97 H Pulse Oximetry 95 Oxygen Delivery Me thod Room Air Course Course ED Course: Patient seen and examined. EKG and telemetry reviewed. Vital Signs Vital signs: Initial Vital Signs Temperature 99.8 F H 11/03/23 13:24 Temperature Source Temporal Artery Scan 11/03/23 13:24 Pulse Rate 96 11/03/23 13:24 Respiratory Rate 20 11/03/23 13:24 Blood Pressure 182/97 H 11/03/23 13:24 Blood Pressure Mean 125 H 11/03/23 13:24 Pulse Oximetry 95 11/03/23 13:24 Oxygen Delivery Method Room Air 11/03/23 13:24 Vital Signs Temperature 99.8 F H 11/03/23 13:24 Pulse Rate 96 11/03/23 13:24 Respiratory Rate 20 11/03/23 13:24 Blood Pressure 182/97 H 11/03/23 13:24 Pulse Oximetry 95 11/03/23 13:24 Oxygen Delivery Method Room Air 11/03/23 13:24 Temperature 99.8 F H 11/03/23 13:24 Pulse Rate 96 11/03/23 13:24 Respiratory Rate 20 11/03/23 13:24 Blood Pressure 182/97 H 11/03/23 13:24 Pulse Oximetry 95 11/03/23 13:24 Oxygen Delivery Method Room Air 11/03/23 13:24 MDM - Arrhythmia/Palpitations MDM Narrative Medical decision making narrative: Patient presents with anxiety and irregular pulse. Her irregular pulse is easily explained by her frequent PVCs. Patient has history of PVCs. She is on metoprolol. Patient is noted to be quite anxious. Reassurance is offered and I did review her telemetry and her EKG with her. I do not believe further workup is indicated in this case. I did offer reassurance and she seemed very receptive to that. I do note her elevated blood pressure and temperature of 99.8? but I do not believe she has any acute infections or underlying unstable angina. At this point I did recommend follow-up with her doctor with repeat EKG and potential adjusting of her beta blockade if indicated. Discharge Plan Discharge Clinical Impression: Frequent PVCs Patient Disposition: Home, Self-Care Condition: Stable Instructions: Premature Ventricular Contractions (ED) Additional Instructions: Continue current medication Report any change in symptoms Follow-up with your doctor later in the week. Activity Level: No Restrictions Discharge Diet: Regular Prescriptions: No Action albuterol sulfate 90 mcg/actuation HFA aerosol inhaler 1 puff INHALATION PRN cyanocobalamin (vitamin B-12) 1,000 mcg tablet 1,000 mcg PO DAILY fluticasone propion-salmeterol 250-50 mcg/dose blister with device 1 inh INHALATION DAILY ipratropium-albuterol 0.5 mg-3 mg(2.5 mg base)/3 mL solution for nebulization 3 ml INHALATION PRN levothyroxine 75 mcg tablet 75 mcg PO DAILY metoprolol succinate 100 mg tablet extended release 24 hr 100 mg PO DAILY omeprazole 20 mg capsule,delayed release(DR/EC) 20 mg PO PRN tiotropium bromide [Spiriva with HandiHaler] 18 mcg capsule, w/inhalation device 1 cap INHALATION DAILY prednisone 20 mg tablet 20 mg PO BID Qty: 10 0RF doxycycline hyclate 100 mg capsule 100 mg PO BID 7 Days Qty: 14 0RF Follow Up/Referrals: Oetken,Mica, DO [Primary Care Provider] - Stand Alone Forms: [employer] Info Instructions
== END 2023-11-03 13:56 | disposition home or self-care (01) ==
LOC: ED 13:36
PROVIDERS: Emergency Provider Internal Medicine; PCP Family Medicine
DX: I49.3 Ventricular premature depolarization (principal)
CPT/HCPCS: 93005; 99283

== ENCOUNTER 2024-01-31 10:14 | Outpatient (CLI) | payer OTHER, SELFPAY ==
--- NOTE | 2024-01-31 11:26 | W.ANESCHARGE ---
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
--- NOTE | 2024-01-31 11:36 | P.ANES_ITS ---
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
== END 2024-01-31 10:15 | disposition home or self-care (01) ==
LOC: OP CLINIC 10:17
PROVIDERS: PCP Family Medicine; Visit Provider Internal Medicine Gastroenterology
DX: Z12.11 Encounter for screening for malignant neoplasm of colon (principal); K56.699 Other intestinal obstruction unspecified as to partial versus complete obstruction; K57.30 Diverticulosis of large intestine without perforation or abscess without bleeding
CPT/HCPCS: 00811; 00812; 45378; 99100; J2704

== ENCOUNTER 2025-03-15 19:32 | Inpatient (IN) | payer MEDICARE, SELFPAY ==
--- OUTSIDE RECORDS SUMMARY | 2023-11-08 04:32 | XMS_ITS | Continuity of Care Document ---
Author Organization [facility] Address [address] [address] [place] [address] Phone Care Team Providers Care Patient Care Technician Instructor Name Role Phone Brenden Patterson MD Unavailable Unavailable Advance Directives Directive Yes / No Effective Date File Name No Information Encounters Encounter Description Practice Location Reason(s) For Visit Diagnoses Date Provider Providers Copied on Encounter [facility], [address] [address], [place], [place], [id number], [place] tel:[phone] [facility] No Information Leonardo Wilcox. [address] [facility], [facility] [address], [place], [place], [id number], [place]. tel:[phone] Family History Family Member Type Diagnosis Age At Onset No Information Payers Payer name Insurance type Covered constitution party ID Authoriza tion(s) No Information Social History Type Description Quantity Date Captured Comments Sex Female Smoking Status No Information Chief Complaint And Reason For Visit No Information Reason For Referral Reason For Referral No Information History Of Present Illness Encounter Date Complaint History Of Prese nt Illness No Information Functional Status Date Functional Assessmen t No Information Instructions Date Instruction Additional Infor mation No Information Assessments Type Assessment Date No Information Patient Care Teams Name Effective Dates (start - stop) Status Members No Information
--- OUTSIDE RECORDS SUMMARY | 2023-11-08 04:32 | XMS_ITS | Continuity of Care Document ---
Author Organization [facility] Address [address] [address] [place] [address] Phone Care Team Providers Care [employer] Teacher Name Role Phone Brenden Patterson MD Unavailable Unavailable Advance Directives Directive Yes / No Effective Date File Name No Information Encounters Encounter Description Practice Location Reason(s) For Visit Diagnoses Date Provider Providers Copied on Encounter [facility], [address] [address], [place], [place], [id number], [place] tel:[phone] [facility] No Information Leonardo Wilcox. [address] [facility], [facility] [address], [place], [place], [id number], [place]. tel:[phone] Family History Family Member Type Diagnosis Age At Onset No Information Payers Payer name Insurance type Covered alliance party ID Authoriza tion(s) No Information Social [...]
--- OUTSIDE RECORDS SUMMARY | 2025-02-19 11:56 | XMS_ITS | Encounter Summary ---
Author Organization [place] Address [address] [place] [address]. [place] [address] Care Team Providers Care Titrator Name Role Phone Mica Sellers Primary Care Provider [phone] Haylee Forde MD Unavailable [phone] Haylee Forde MD Unavailable [phone] Padmini Bowling MD Unavailable [phone] Reason for Visit * Diagnostic Imaging MRI (Routine) - ClosedSpecialtyDiagnoses / Procedures Referred By ContactReferred To ContactRadiology. Diagnoses Nipple discharge in female Personal history of malignant neoplasm of breast Procedures MR Breast Bilateral w/o & w Contrast Padmini Bowling MD [address] [place] [address] Phone: tel: fax: Referral IDStatusReasonStart DateExpiration DateVisits RequestedVisits [id number]/10/202510/10/202611 Encounter Details DateTypeDepartmentCare Team (Latest Contact Info)Vektaasxxyd63/28/2025 11:56 AM CARE MANAGEMENT COORDINATOR - 02/19/2025 11:59 PM CSTHospital Encounter [facility] [address] [place] [phone] Padmini Bowling MD [address] [facility] [address] [place] [address] (work) Discharge Disposition: Home or Self Care Social History Tobacco UseTypesPacks/DayYears UsedDateSmoking Tobacco: FormerCigarettes Smokeless Tobacco: Never Comments:Quit 2012 Alcohol UseStandard Drinks/WeekCommentsNot Currently0 (1 standard drink = 0.6 oz pure alcohol)PHQ-2AnswerDate RecordedPHQ-2 Uhqxq347dolescent Education AnswerDate RecordedGetting School Help NeededNot on file12/23/2022Interpersonal SafetyAnswerDate RecordedDo you feel physically and emotionally safe where you currently live?Yes06/05/2024Within the past 12 months, have you been hit, slapped, kicked or otherwise physically hurt by someone?No06/05/2024Within the past 12 months, have you been humiliated or emotionally abused in other ways by your partner or ex-partner?No06/05/2024CommentsNoSex and Gender InformationValueDate RecordedSex Assigned at BirthNot on fileLegal SexFemale 01/27/2012 3:24 AM CSTGender IdentityNot on fileSexual OrientationNot on file documented as of this encounter Medications at Time of Discharge MedicationSigDispense QuantityRefillsLast FilledStart DateEnd Date acetaminophen (TYLENOL) 500 MG tablet Indications:Malignant neoplasm of left breast in female, estrogen receptor positive, unspecified site of breast(H)Take 2 tablets (1,000 mg) by mouth every 6 hours as needed for pain.06/05/2024 albuterol (PROAIR HFA/PROVENTIL HFA/VENTOLIN HFA) 108 (90 Base) MCG/ACT inhaler Inhale 1 puff into the lungs every 6 hours as needed.04/08/2024 amLODIPine (NORVASC) 5 MG tablet Take 1 tablet by mouth daily.05/28/2024 atorvastatin (LIPITOR) 10 MG tablet Take 10 mg by mouth daily.04/22/2024 DSS 100 MG capsule Take 100 mg by mouth.06/03/2024 Ruxlbelqvfb-Lgyxvxsec-Aseafu (TRELEGY ELLIPTA) 100-62.5-25 MCG/ACT oral inhaler Inhale 1 puff into the lungs.10/07/2024 ibuprofen (ADVIL/MOTRIN) 200 MG tablet Indications:Malignant neoplasm of left breast in female, estrogen receptor positive, unspecified site of breast(H)Take 3 tablets (600 mg) by mouth every 6 hours as needed for moderate pain.06/05/2024 levothyroxine (SYNTHROID/LEVOTHROID) 75 MCG tablet Take 75 mcg by mouth every morning (before breakfast).04/08/2024 metoprolol succinate ER (TOPROL XL) 100 MG 24 hr tablet Take 1 tablet by mouth daily. jtivlfb8204/08/2024 omeprazole (PRILOSEC) [address] capsule Take 20 mg by mouth daily as needed.04/08/2024documented as of this encounter Plan of Treatment DateTypeDepartmentCare Team (Latest Contact Info)Fsnvodslage46/10/2026 3:40 PM CSTOncology Visit [facility] [address] [facility] [place] [phone] [place] [address] [place] [address] documented as of this encounter Procedures Procedure NamePriorityDate/TimeAssociated DiagnosisCommentsMR BREAST BILATERAL W/O & W GZRAXYPSQibpoaf16/28/2025 1:59 PM CARE MANAGEMENT COORDINATOR Nipple discharge in female Personal history of malignant neoplasm of breast documented in this encounter Visit Diagnoses Not on filedocumented in this encounter Administered Medications Medication OrderMAR ActionAction DateDoseRateSite gadobutrol (GADAVIST) injection 7 mL 7 mL, Intravenous, ONCE, On Sat02/19/25 at 1300, For 1 dose $Given02/19/2025 12:55 PM CST7 mLs sodium chloride (PF) 0.9% PF flush 60 mL 60 mL, Intravenous, ONCE, On Sat02/19/25 at 1300, For 1 dose $Given02/19/2025 12:57 PM WDK324 mLsdocumented in this encounter Care Teams Team MemberRelationshipSpecialtyStart DateEnd Date Mica Sellers DO PCP - GeneralFamily Medicine04/29/24 Haylee Forde MD [address] [place] [address] PhysicianHematology & Oncology05/19/24 [place] [address] [facility] [address] [place] [address] Assigned Cancer Care Provider06/14/24 Padmini Bowling MD [address] [facility] [address] [place] [address] Assigned Surgical Provider06/14/24documented as of this encounter
--- OUTSIDE RECORDS SUMMARY | 2025-02-23 13:00 | XMS_ITS | Encounter Summary ---
Author Organization [place] Address [address] [place] [address] Care Team Providers Care Line Crew Supervisor Name Role Phone Mica Sellers Primary Care Provider [phone] Haylee Forde MD Unavailable [phone] Haylee Forde MD Unavailable [phone] Padmini Bowling MD Unavailable [phone] Reason for Referral * Diagnostic Imaging Ultrasound (Routine) - ClosedSpecialtyDiagnoses / ProceduresReferred By ContactReferred To ContactRadiology. Diagnoses Discharge from left nipple Other abnormal and inconclusive findings on diagnostic imaging of breast Procedures US Breast Biopsy Core Needle, 1St Lesion Left Padmini Bowling MD [address] [facility] [address] [place] [address] Phone: tel: fax: [facility] [address] [facility] [place] [address] Phone: tel: Referral IDStatusReasonStart DateExpiration DateVisits RequestedVisits [id number]/2/202512/2/202611 TOR USE ASSISTANT Reason for Visit * ReasonCommentsRECHECKDiscuss MRI results Encounter Details DateTypeDepartmentCare Team (Latest Contact Info)Ybwpcukiqyy57/02/2025 1:[address] [facility] [address] [place] [phone] Padmini Bowling MD [address] [place] [address] Discharge from left nipple (Primary Dx); Other abnormal and inconclusive findings on diagnostic imaging of breast Social History Tobacco UseTypesPacks/DayYears UsedDateSmoking Tobacco: FormerCigarettesPassive Smoke Exposure: NeverSmokeless Tobacco: Never Tobacco Cessation:Counseling Given: Yes Comments:Quit 2012 Alcohol UseStandard Drinks/WeekCommentsNot Currently0 (1 standard drink = 0.6 oz pure alcohol)PHQ-2AnswerDate RecordedPHQ-2 Zccmf022dolescent Education AnswerDate RecordedGetting School Help NeededNot on [...] on file documented as of this encounter Last Filed Vital Signs Vital SignReadingTime TakenCommentsBlood Jkdugmnd486/6802/23/2025 12:44 PM VISITOR USE ASSISTANT Hcjqd519802/23/2025 12:44 PM CSTTemperature--Respiratory Rate--Oxygen Saturation 92%02/23/2025 12:44 PM CSTInhaled Oxygen Concentration--Gxhnhc54.8 kg (156 lb) 02/23/2025 12:44 PM HVHDcywfy573.6 cm (5' 6)02/23/2025 12:44 PM CSTBody Mass Index25.18104/26/2024 12:44 PM CSTdocumented in this encounter Patient Instructions * Patient Instructions* Anne Marie Montejo CMA - 02/23/2025 1:00 PM VISITOR USE ASSISTANT LEFT BREAST ULTRASOUND BIOPSY Date: 03/02/2025 Time: 10:30 AM Location: [facility] Jenni Willingham [facility] [address] [place] [address] Please check in at 10:15 AM TOR USE ASSISTANT documented in this encounter Progress Notes * Padmini Bowling MD - 02/23/2025 1:00 PM CST Assessment: Cande Matias is a 85 year old female with a history of 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 The discharge is in small amounts and appears as crusting within her inverted nipple that she needs to wash off in the shower. She is unable to express any fluid. Mammogram and ultrasound were normal, but breast MRI showed some non-mass enhancement deep to the nipple, extending 1.6 cm. An ultrasound guided biopsy has been recommended. PLAN: Ultrasound guided subareolar breast biopsy has been ordered. I will call her with the results. If the biopsy shows benign findings, such as duct ectasia, then I will recommend observation alone. If results show atypia or malignancy, she will need to return to clinic for further discussion. HPI: Cande Matias is a 85 year old female with left nipple discharge. She is known to me from a left breast lumpectomy in the upper outer quadrant in May of this year (~ 9 months ago). Post-operatively, she had a seroma which responded well to needle aspiration. She underwent a short course of radiation therapy (x 5 days) and declined hormonal therapy. She now presents with ~ 3-4 months of leftnipple discharge. She has not been able to see/express any fluid, but has buildup of white materialwithin her inverted nipple almost daily which she washes away in the shower. There is no breast pain or pruritus. No rash. Imaging: All imaging studies reviewed by me. Recent Results (from the past 744 hours) Breast Bilateral w/o & w Contrast Narrative Exam: Breast MRI, with and without Contrast, and with color encoding History/Indication: 85-year-old female with personal history of left breast invasive ductal carcinoma in 2024 status post lumpectomy and sentinel lymph node biopsy. Patient had unremarkable diagnostic workup in November 2024 for the left breast nipple discharge that started following her lumpectomy. This MRI was pursued to further evaluate the nipple discharge. Comparison: Mammogram 12/22/2024, 05/06/2024, 01/05/2013 Technique: Precontrast gradient recall axial nonfat sat T1. Precontrast gradient recall axial fat-sat T1. Precontrast T2 STIR axial fat sat. Postcontrast gradient recall axial fat-sat T1 with dynamic postcontrast acquisitions at 2, 4 and 6 minutes with subtractions. Delayed high-resolution gradient recall sagittal fat-sat T1. MIP of subtractions, axial coronal and sagittal. Color encoding of post contrast dynamic acquisitions. IV contrast: 7 mL Gadavist Breast composition: Scattered fibroglandular tissue Background parenchymal enhancement: Minimal Findings: Right Breast: No concerning areas of enhancement. Right Axilla: No lymphadenopathy. Left Breast: Left breast posttreatment changes are noted. Left inverted nipple is noted. In retrospect review, this has been unchanged compared to mammogram 2013. Immediately posterior to the inverted nipple, there is a linear nonmass enhancement measuring 16 x 6 mm (S8 image 102, S15 image 115). No other abnormal enhancement is noted in the left breast. Left Axilla: No lymphadenopathy. Internal Mammary Chain: No lymphadenopathy. Impression IMPRESSION: BI-RADS CATEGORY: 4 - Suspicious. 1. Left 16 mm linear nonmass enhancement directly posterior to the inverted nipple. Recommend tissue sampling of this area. Given patient's age and subareolar location of the enhancement, MRI biopsy could be technically challenging. Recommend ultrasound-guided biopsy using anatomic landmarks targeting immediately deep to the inverted nipple. 2. Left breast posttreatment changes in the upper outer quadrant posterior depth. 3. No MR evidence of malignancy in the right breast RECOMMENDED FOLLOW-UP: Ultrasound guided biopsy of the left subareolar region. NANCY CLARK MD Percutaneous core needle biopsy: not done Past Medical History: has a past medical history of COPD (chronic obstructive pulmonary disease) (H), Gastroesophageal reflux disease, and Hypertension. Past Surgical History: Past Surgical History: Procedure Laterality Date BIOPSY NODE SENTINEL Left 06/05/2024 Procedure: AND SENTINEL LYMPH NODE BIOPSY; Surgeon: Padmini Bowling MD; Location: [facility] OR COLONOSCOPY LUMPECTOMY, BREAST, LOCALIZED USING RADIOFREQUENCY IDENTIFICATION Left 06/05/2024 Procedure: LUMPECTOMY, BREAST, WITH RADIOFREQUENCY IDENTIFICATION; Surgeon: Padmini Bowling MD; Location: [facility] OR Family History: Family history reviewed and not pertinent. Social History: Social History Socioeconomic History Marital status: Spouse name: Not on file Number of children: Not on file Years of education: Not on file Highest education level: Not on file Occupational History Not on file Tobacco Use Smoking status: Former Types: Cigarettes Passive exposure: Never Smokeless tobacco: Never Tobacco comments: Quit 2012 Substance and Sexual Activity Alcohol use: Not Currently Drug use: Never Sexual activity: Not on file Other Topics Concern Not on file Social History Narrative Not on file Social Drivers of Health Financial Resource Strain: Low Risk (04/04/2023) Received from [facility] Financial Resource Strain Difficulty of Paying Living Expenses: 3 Difficulty of Paying Living Expenses: Not on file Food Insecurity: No Food Insecurity (04/04/2023) Received from [facility] Food Insecurity Do you worry your food will run out before you are able to buy more?: 1 Transportation Needs: No Transportation Needs (04/04/2023) Received from [facility] Transportation Needs Does lack of transportation keep you from medical appointments?: 1 Does lack of transportation keep you from work, meetings or getting things that you need?: 1 Physical Activity: Not on file Stress: Not on file Social Connections: Socially Integrated (04/04/2023) Received from [facility] Social Connections Do you often feel lonely or isolated from those around you?: 0 Interpersonal Safety: Low Risk (06/05/2024) Interpersonal Safety Do you feel physically and emotionally safe where you currently live?: Yes Within the past 12 months, have you been hit, slapped, kicked or otherwise physically hurt by someone?: No Within the past 12 months, have you been humiliated or emotionally abused in other ways by your partner or ex-partner?: No Housing Stability: Low Risk (04/04/2023) [facility] Housing Stability What is your housing situation today?: 1 ROS: The 10 point review of systems is negative other than noted in the HPI and above. PE: Vitals: BP 126/68 Pulse 65 Ht 1.676 m (5' 6) Wt 70.8 kg (156 lb) SpO2 92% BMI 25.18 kg/m?? General appearance: well-nourished, sitting comfortably, no apparent distress Neck: Supple, without masses or lymphadenopathy Respirations: Unlabored Extremities: Warm, without edema Neurologic: alert, speech is clear, moves all extremities with good strength Psychiatric: Mood and affect are appropriate Skin: Without lesions, rashes, or jaundice Breast: Symmetrical with no skin changes. Nipples are inverted bilaterally. Left nipple has mild white crusting. No discharge with attempted expression. Contour is normal. Parenchyma is soft. Masses- none Incisional scar- Left upper outer quadrant, well healed, no mass or seroma. Lymph: No supraclavicular/infraclavicular adenopathy. Axillary adenopathy: none This note was created using voice recognition software. Undetected word substitutions or other errors may have occurred. Time spent with the patient with greater that 50% of the time in discussion was 20 minutes. Padmini Bowling MD Please route or send letter to: Primary Care Provider (PCP) and Referring Provider TOR USE ASSISTANT documented in this encounter Plan of Treatment DateTypeDepartmentCare Team (Latest Contact Info)Numloahcjvv19/10/2026 3:40 PM CSTOncology Visit [facility] [address] [facility] [place] [phone] [place] [address] [place] [address] documented as of this encounter Results * US Breast Biopsy Core Needle, 1St Lesion Left (03/02/2025 10:54 AM VISITOR USE ASSISTANT) Anatomical RegionLateralityModalityBreastLeftUltrasoundSpecimen (Source) Anatomical Location / LateralityCollection Method / VolumeCollection Time Received Time Impressions 03/02/2025 11:12 AM VISITOR USE ASSISTANT IMPRESSION: Successful left breast ultrasound-guided core biopsy and clip placement. ??Final pathology is pending. ?? ALMA DELIA ADAM MD Narrative 03/02/2025 11:12 AM VISITOR USE ASSISTANT ULTRASOUND-GUIDED LEFT BREAST CORE BIOPSY; CLIP PLACEMENT; POSTPROCEDURE DIGITAL MAMMOGRAM; 03/02/2025 INDICATION FOR PROCEDURE: Nonmass enhancement behind the left nipple on recent breast MRI 02/19/2025. PROCEDURE: Written informed consent is obtained from the patient prior to the procedure. The risks and benefits are discussed and the patient wishes to continue. ??Approximately 3 mL lidocaine without epinephrine was infiltrated for local anesthetic and a skin edgar was made through which a 13-gauge trocar was introduced via lateral to medial approach. The needle tip was placed adjacent to the lesion. A series of 3 samples were obtained with a 14-gauge core-cutting needle. A T5-shaped clip was then deployed to xavi the lesion. Postbiopsy unilateral digital mammogram of the left breast showed the clip to be appropriately placed. ??The patient tolerated the procedure without difficulty and there was no immediate complication. Less than 5cc blood loss. ??No pain following biopsy. Authorizing ProviderResult TypeResult StatusMeav Bowling MDPIEDMONT AUGUSTA ORDERABLESFinal Result documented in this encounter Visit Diagnoses Diagnosis Discharge from left nipple- Primary Other abnormal and inconclusive findings on diagnostic imaging of breast Discharge from left nipple Other abnormal and inconclusive findings on diagnostic imaging of breast documented in this encounter Care Teams Team MemberRelationshipSpecialtyStart DateEnd Date Mica Sellers DO PCP - GeneralFamily Medicine04/29/24 Haylee Forde MD [address] [place] [address] PhysicianHematology & Oncology05/19/24 [place] [address] [address] [place] [address] Assigned Cancer Care Provider06/14/24 Padmini Bowling MD [address] [facility] [address] [place] [address] Assigned Surgical Provider06/14/24documented as of this encounter
--- OUTSIDE RECORDS SUMMARY | 2025-03-02 10:00 | XMS_ITS | Encounter Summary ---
Author Organization [place] Address [address] [place] [address] Care Team Providers Care Shot Polisher And Inspector Name Role Phone NarabellatonioMica Primary Care Provider [phone] Haylee Forde MD Unavailable [phone] Haylee Forde MD Unavailable [phone] Padmini Bowling MD Unavailable [phone] Reason for Referral * Diagnostic Imaging Ultrasound (Routine) - ClosedSpecialtyDiagnoses / ProceduresReferred By ContactReferred To ContactRadiology. Diagnoses Discharge from left nipple Other abnormal and inconclusive findings on diagnostic imaging of breast Procedures US Breast Biopsy Core Needle, 1St Lesion Left Padmini Bowling MD [address] [facility] [address] [place] [address] Phone: tel: fax: [facility] [address] [facility], [address] [place] [address] Phone: tel: Referral IDStatusReasonStart DateExpiration DateVisits RequestedVisits [id number]/2/202512/2/202611 SIT MIX OPERATOR Reason for Visit * Diagnostic Imaging Ultrasound (Routine) - ClosedSpecialtyDiagnoses / ProceduresReferred By ContactReferred To ContactRadiology. Diagnoses Discharge from left nipple Other abnormal and inconclusive findings on diagnostic imaging of breast Procedures US Breast Biopsy Core Needle, 1St Lesion Left Padmini Bowling MD [address] [place] [address] Phone: tel: fax: [facility] [address] [place] [address] Phone: tel: Referral IDStatusReasonStart DateExpiration DateVisits RequestedVisits [id number]/2/202512/2/202611 Encounter Details DateTypeDepartmentCare Team (Latest Contact Info)Nrtppnoopzp38/09/2025 10:00 AM TRANSIT MIX OPERATOR - 03/02/2025 11:59 PM CSTHospital Encounter [facility] [address] [place] [address] Padmini Bowling MD [address] [place] [address] Discharge from left nipple; Other abnormal and inconclusive findings on diagnostic imaging of breast Discharge Disposition: Home or Self Care Social History Tobacco UseTypesPacks/DayYears UsedDateSmoking Tobacco: FormerCigarettesPassive Smoke Exposure: NeverSmokeless Tobacco: Never Comments:Quit 2012 Alcohol UseStandard Drinks/WeekCommentsNot Currently0 (1 standard drink = 0.6 oz pure alcohol)PHQ-2AnswerDate RecordedPHQ-2 Ybsya723dolescent Education AnswerDate RecordedGetting School Help NeededNot on [...] on file documented as of this encounter Discharge Instructions * Discharge Instructions* Alexandria Musa RN - 03/02/2025 10:55 AM TRANSIT MIX OPERATOR After Your Breast Biopsy Bleeding or bruising Slight bruising is normal. If you bleed through the bandage, put direct pressure on the breast for 10 minutes. If the breast begins to swell, or you have a lot of bleeding after 10 minutes of pressure, call thedoctor who ordered your exam. Or, go to the emergency room. Bandages Keep your bandage in place until tomorrow morning. Do not get it wet. If you have small pieces of tape on the skin, leave them in place. They will fall off on their own,or you can remove them after 5 days. Activity You may shower the morning after the exam. No heavy activity (lifting, vacuuming) on the day of your exam. You may go back to normal activity the next day, unless you had a lot of bleeding or pain. Discomfort You may take Tylenol (acetaminophen) today for pain. Tomorrow, you may take an anti-inflammatory medicine (aspirin, ibuprofen, Motrin, Aleve, Advil), unless your doctor tells you not to. Wear your bra overnight to support the breast. You may also use an ice pack: Place it over the areafor 15-20 minutes several times a day. Infection Infection is rare. Symptoms include fever, redness, increasing pain and fluid draining from the biopsy site. If you have any of these symptoms, please call the doctor who ordered your exam. Results Results may take up to 5 business days. A nurse or doctor from the Breast Center will call with your results. We will also send the results to the doctor who ordered your biopsy. If you have not heard your results in 5 days, please call the Breast Center. Other instructions Call your doctor if: You have bleeding that lasts more than 10 minutes. You have pain that cannot be controlled. You have signs of infection (fever, redness, drainage or other signs). You have not received your results within 5 days. Please call the Breast Center nurse navigator at [phone] if you have questions or concerns about your biopsy. SIT MIX OPERATOR documented in this encounter Medications at Time of Discharge [...] MG capsule Take 100 mg by mouth.06/03/2024 Wmcezfrppkg-Tqkqxlowh-Wsilkm (TRELEGY ELLIPTA) 100-62.5-25 MCG/ACT oral inhaler Inhale [...] tablet Take 1 tablet by mouth daily. mucnuyw3604/08/2024 omeprazole (PRILOSEC) [address] capsule Take 20 mg by mouth daily as needed.04/08/2024documented as of this encounter Progress Notes * Alexandria Musa RN - 03/02/2025 11:59 PM CST Pathology report reviewed with our breast radiologist Dr Sprague, who confirmed the recent breast imaging is concordant with the final pathology results below A. Breast, left, posterior to nipple, 2 cm size, needle core biopsy: - Fragments of benign fibroadipose and muscular tissue representing retroareolar area with focal cystic changes. Dr Bowling notified and talked with family Alexandria Musa RN [facility] Nurse Coordinator [facility] [phone] SIT MIX OPERATOR documented in this encounter Plan of Treatment DateTypeDepartmentCare Team (Latest Contact Info)Ksdeyoomafj61/10/2026 3:40 PM CSTOncology Visit [facility] [address] [place] [address] [facility] [place] [address] [place] [address] [place] [address] documented as of this encounter Procedures Procedure NamePriorityDate/TimeAssociated DiagnosisCommentsUS BREAST BIOPSY CORE NEEDLE ENOACgpkebb39/09/2025 10:54 AM TRANSIT MIX OPERATOR Discharge from left nipple Other abnormal and inconclusive findings on diagnostic imaging of breast SURGICAL PATHOLOGY ESBXNkwfyhu51/09/2025 10:50 AM TRANSIT MIX OPERATOR Discharge from left nipple Other abnormal and inconclusive findings on diagnostic imaging of breast documented in this encounter Results * US Breast Biopsy Core Needle, 1St Lesion Left (03/02/2025 10:54 AM TRANSIT MIX OPERATOR) Anatomical RegionLateralityModalityBreastLeftUltrasoundSpecimen (Source) Anatomical Location / LateralityCollection Method / VolumeCollection Time Received Time Impressions 03/02/2025 11:12 AM TRANSIT MIX OPERATOR IMPRESSION: Successful left breast ultrasound-guided core biopsy and clip placement. ??Final pathology is pending. ?? EVAN MÁRQUEZ MD Narrative 03/02/2025 11:12 AM TRANSIT MIX OPERATOR ULTRASOUND-GUIDED LEFT BREAST CORE BIOPSY; CLIP PLACEMENT; [...] following biopsy. Authorizing ProviderResult TypeResult StatusMeav Bowling MDSTEPHENS COUNTY [facility] ORDERABLESFinal Result * Surgical Pathology Exam (03/02/2025 10:50 AM TRANSIT MIX OPERATOR)ComponentValueRef RangeTest MethodAnalysis TimePerformed AtPathologist SignatureCase ReportSurgical Pathology Report ? Case: [id number] ? Authorizing Provider: ??Padmini Bowling MD ?Collected: ? 03/02/2025 10:50 AM ? Ordering Location: ? [facility] ?? Received: ?03/02/2025 11:35 AM? Breast Center ? Pathologist: ? Judie Barrios MD ? Specimen: ?Breast, Left ? 03/05/2025 1:31 PM [facility] LABORATORYFinal DiagnosisA. Breast, left, posterior to nipple, 2 cm size, needle core biopsy: - Fragments of benign fibroadipose and muscular tissue representing retroareolar area with focal cystic changes. 03/05/2025 1:31 PM [facility] at 1331 CSTCommentClinical correlation is recommended to ensure that the biopsy findings are provider relations representative of the radiographic area of concern. Multiple levels examined.03/05/2025 1:31 PM [facility] LABORATORYClinical Information Left 16 mm linear nonmass enhancement directly posterior to the inverted nipple. 03/05/2025 1:31 PM [facility] LABORATORYGross DescriptionA(1). Breast, Left, : The specimen is received in formalin, labeled with the patient's name, medical record number and other identifying information designated breast, left. It consists of 3 fibrofatty soft tissue cores, 1.5-1.7 x 0.2 cm. Wrapped, inked green, and submitted entirely in 1 cassette. Time collected: 1050 Time in formalin: 1052 (YAAKOV Maher)03/02/2025 12:19 PM03/05/2025 1:31 PM [facility] Microscopic DescriptionMicroscopic examination was performed and results are incorporated into the final diagnosis. Designated ink identified.03/05/2025 1:31 PM [facility] LABORATORYPerforming LabsThe technical component of this testing was completed at [facility]. Stain controls for all stains resulted within this report have been reviewed and show appropriate reactivity.03/05/2025 1:31 PM [facility] LABORATORYCase Images 03/05/2025 1:31 PM [facility] LABORATORYSpecimen (Source)Anatomical Location / LateralityCollection Method / VolumeCollection TimeReceived TimeBiopsyLEFT BREAST STRUCTURE / Ygxeqwi6603/02/2025 10:50 AM CST03/02/2025 11:35 AM CSTComment: Left breast ultrasound core biopsy, posterior to nipple, approximately 2.0 cm size on MRI. Low suspicion. Performed by Dr. Evan Márquez. Indication: left breast area of enhancement posterior to nipple on recent MRI, h/o left breast cancer approx 9 months ago. Narrative Authorizing ProviderResult TypeResult StatusMegan Ayesha WILSON Final ResultPerforming OrganizationAddressCity/State/ZIP CodePhone Number LABORATORY [facility] [address] 1[address] floor, [address] [place] [address], [facility] [phone] LABORATORY [facility] [address] [facility] Lab (1st floor, no room number) [place] [address] documented in this encounter Visit Diagnoses Diagnosis Discharge from left nipple Other abnormal and inconclusive findings on diagnostic imaging of breast documented in this encounter Administered Medications Medication OrderMAR ActionAction DateDoseRateSite lidocaine 1 % 5 mL 5 mL, Subcutaneous, ONCE, On Sat03/02/25 at 1100, For 1 dose Indications:Other abnormal and inconclusive findings on diagnostic imaging of breast$Given03/02/2025 10:46 AM CST5 mLsOther (see comments)documented in this encounter Care Teams Team MemberRelationshipSpecialtyStart DateEnd Date Mica Sellers DO PCP - GeneralFamily Medicine04/29/24 Haylee Forde MD [address] [place] [address] PhysicianHematology & Oncology05/19/24 [place] [address] [facility] [address] [place], [place] [address] Assigned Cancer Care Provider06/14/24 Padmini Bowling MD [address] [facility] [address] [place], [place] [address] Assigned Surgical Provider06/14/24documented as of this encounter
--- OUTSIDE RECORDS SUMMARY | 2025-03-02 10:00 | XMS_ITS | Encounter Summary ---
Author Organization [place] Address [address] [place] [address] Care Team Providers Care Waste Machine Operator Name Role Phone Mica Sellers Ran Primary Care Provider [phone] Haylee Forde MD Unavailable [phone] Haylee Forde MD Unavailable [phone] Padmini Bowling MD Unavailable [phone] Reason for Referral * Diagnostic Imaging Mammo (Routine) - Pending ReviewSpecialtyDiagnoses / ProceduresReferred By ContactReferred To ContactRadiology. Diagnoses Discharge from left nipple Other abnormal and inconclusive findings on diagnostic imaging of breast Procedures MA Post Procedure Left Padmini Bowling MD [address] [email or web address] [address] [place] [id number] Phone: tel: fax: Referral IDStatusReasonStart DateExpiration DateVisits RequestedVisits [id number] OGIST PHYSICIAN Reason for Visit * Diagnostic Imaging Mammo (Routine) - Pending ReviewSpecialtyDiagnoses / ProceduresReferred By ContactReferred To ContactRadiology. Diagnoses Discharge from left nipple Other abnormal and inconclusive findings on diagnostic imaging of breast Procedures MA Post Procedure Left Padmini Bowling MD [address] [facility] [address] [place] [address] Phone: tel: fax: Referral IDStatusReasonStart DateExpiration DateVisits RequestedVisits [id number] Encounter Details DateTypeDepartmentCare Team (Latest Contact Info)Hxdslkwbeqi41/09/2025 10:00 AM UROLOGIST PHYSICIAN - 03/02/2025 11:59 PM CSTHospital Encounter [facility] [address] [facility] [place] [phone] Padmini Bowling MD [email or web address] [facility] [address] [place] [address] Discharge from left nipple; Other abnormal and inconclusive findings on diagnostic imaging of breast Discharge Disposition: Home or Self Care Social History Tobacco UseTypesPacks/DayYears UsedDateSmoking Tobacco: FormerCigarettesPassive Smoke Exposure: NeverSmokeless Tobacco: Never Comments:Quit 2012 Alcohol UseStandard Drinks/WeekCommentsNot Currently0 (1 standard drink = 0.6 oz pure alcohol)PHQ-2AnswerDate RecordedPHQ-2 Livng683dolescent Education AnswerDate RecordedGetting School Help NeededNot on [...] MG capsule Take 100 mg by mouth.06/03/2024 Chqswibaedq-Exyvgrkhe-Tcnekp (TRELEGY ELLIPTA) 100-62.5-25 MCG/ACT oral inhaler Inhale [...] tablet Take 1 tablet by mouth daily. sexjnzr5704/08/2024 omeprazole (PRILOSEC) [address] capsule Take 20 mg by mouth daily as needed.04/08/2024documented as of this encounter Plan of Treatment DateTypeDepartmentCare Team (Latest Contact Info)Ruqyegvymaf55/10/2026 3:40 PM CSTOncology Visit [facility] [address] [facility] [place] [address] [place] [address] [place] [address] documented as of this encounter Procedures Procedure NamePriorityDate/TimeAssociated DiagnosisCommentsMA POST PROCEDURE PPVRCmsczgc41/09/2025 11:10 AM UROLOGIST PHYSICIAN Discharge from left nipple Other abnormal and inconclusive findings on diagnostic imaging of breast documented in this encounter Results * MA Post Procedure Left (03/02/2025 11:10 AM UROLOGIST PHYSICIAN)Anatomical RegionLaterality ModalityBreastLeftMammographySpecimen (Source)Anatomical Location / Laterality Collection Method / VolumeCollection TimeReceived Time Impressions 03/02/2025 11:12 AM UROLOGIST PHYSICIAN IMPRESSION: Successful left breast ultrasound-guided core biopsy and clip placement. ??Final pathology is pending. ?? EVAN MÁRQUEZ MD Narrative 03/02/2025 11:12 AM UROLOGIST PHYSICIAN ULTRASOUND-GUIDED LEFT BREAST CORE BIOPSY; CLIP PLACEMENT; [...] 5cc blood loss. ??No pain following biopsy. Procedure Note Evan Márquez MD - 03/02/2025 ULTRASOUND-GUIDED LEFT BREAST CORE BIOPSY; CLIP PLACEMENT; POSTPROCEDURE DIGITAL MAMMOGRAM; 03/02/2025 INDICATION FOR PROCEDURE: Nonmass enhancement behind the left nipple on recent breast MRI 02/19/2025. PROCEDURE: Written informed consent is obtained from the patient prior to the procedure. The risks and benefits are discussed and the patient wishes to continue. Approximately 3 mL lidocaine without epinephrine was infiltrated [...] showed the clip to be appropriately placed. The patient tolerated the procedure without difficulty and there was no immediate complication. Less than 5cc blood loss. No pain following biopsy. IMPRESSION: Successful left breast ultrasound-guided core biopsy and clip placement. Final pathology is pending. EVAN MÁRQUEZ MD Authorizing ProviderResult TypeResult StatusMegan Ayesha Bowling MDIMG MAMMOGRAPHY ORDERABLESFinal Result documented in this encounter Visit Diagnoses Diagnosis Discharge from left nipple Other abnormal and inconclusive findings on diagnostic imaging of breast documented in this encounter Care Teams Team MemberRelationshipSpecialtyStart DateEnd Date Mica Sellers DO PCP - GeneralFamily Medicine04/29/24 Haylee Forde MD [address] [place] [address] PhysicianHematology & Oncology05/19/24 [place] [address] [place], [place] [address] Assigned Cancer Care Provider06/14/24 Padmini Bowling MD [address] [facility] [address] [place], [place] [address] Assigned Surgical Provider06/14/24documented as of this encounter
--- OUTSIDE RECORDS SUMMARY | 2025-03-15 19:35 | XMS_ITS | Encounter Summary ---
Author Organization [place] Address [address] [place] [address] Care Team Providers Care Diesel Powerplant Mechanic Name Role Phone Mica Sellers Primary Care Provider [phone] Haylee Forde MD Unavailable [phone] Haylee Forde MD Unavailable [phone] Padmini Bowling MD Unavailable [phone] Encounter Details DateTypeDepartmentCare Team (Latest Contact Info)Dbqnrfhoems42/02/2025Travel Social History Tobacco UseTypesPacks/DayYears UsedDateSmoking Tobacco: FormerCigarettesPassive Smoke Exposure: NeverSmokeless Tobacco: Never Comments:Quit 2012 Alcohol UseStandard Drinks/WeekCommentsNot Currently0 (1 standard drink = 0.6 oz pure alcohol)PHQ-2AnswerDate RecordedPHQ-2 Pkoyf318dolescent Education AnswerDate RecordedGetting School Help NeededNot on [...] on file documented as of this encounter Plan of Treatment DateTypeDepartmentCare Team (Latest Contact Info)Lpkloruucje90/10/2026 3:40 PM CSTOncology Visit [facility] [address] [place] [address] [facility] [place] [address] [place] [address] [place], [place] [address] documented as of this encounter Visit Diagnoses Not on filedocumented in this encounter Care Teams Team MemberRelationshipSpecialtyStart DateEnd Date Mica Sellers DO PCP - GeneralFamily Medicine04/29/24 Haylee Forde MD [address] [place] [address] PhysicianHematology & Oncology05/19/24 [place] [address] [place] [address] Assigned Cancer Care Provider06/14/24 Padmini Bowling MD [address] [facility] [address] [place], [place] [address] Assigned Surgical Provider06/14/24documented as of this encounter
--- OUTSIDE RECORDS SUMMARY | 2025-03-15 19:35 | XMS_ITS | Clinical Summary ---
Author Organization [facility] Address [address] [place] [address]. [place] [address] Care Team Providers Care Cargo Broker Name Role Phone NaraMica lynne Primary Care Provider [phone] Haylee Forde MD Unavailable [phone] Haylee Forde MD Unavailable [phone] Padmini Bowling MD Unavailable [phone] Allergies No known active allergies Medications MedicationSigDispense QuantityRefillsLast FilledStart DateEnd DateStatus atorvastatin (LIPITOR) 10 MG tablet Take 10 mg by mouth daily.5Active levothyroxine (SYNTHROID/LEVOTHROID) 75 MCG tablet Take 75 mcg by mouth every morning (before breakfast).5Active albuterol (PROAIR HFA/PROVENTIL HFA/VENTOLIN HFA) 108 (90 Base) MCG/ACT inhaler Inhale 1 puff into the lungs every 6 hours as needed.5Active amLODIPine (NORVASC) 5 MG tablet Take 1 tablet by mouth daily.5Active metoprolol succinate ER (TOPROL XL) 100 MG 24 hr tablet Take 1 tablet by mouth daily. megdydl75/15/2025Active omeprazole (PRILOSEC) [address] capsule Take 20 mg by mouth daily as needed.5Active ibuprofen (ADVIL/MOTRIN) 200 MG tablet Indications:Malignant neoplasm of left breast in female, estrogen receptor positive, unspecified site of breast(H)Take 3 tablets (600 mg) by mouth every 6 hours as needed for moderate pain.5Active Additional Information Patient not taking.Reported on 02/23/2025 acetaminophen (TYLENOL) 500 MG tablet Indications:Malignant neoplasm of left breast in female, estrogen receptor positive, unspecified site of breast(H)Take 2 tablets (1,000 mg) by mouth every 6 hours as needed for pain.5Active Additional Information Patient not taking.Reported on 02/23/2025 DSS 100 MG capsule Take 100 mg by mouth.5Active Pddbozzqure-Pjytdjqul-Yrcbmj (TRELEGY ELLIPTA) 100-62.5-25 MCG/ACT oral inhaler Inhale 1 puff into the lungs.5ActiveHospital, Clinic, or Other Facility Administered MedicationOrdered DoseRouteFrequencyStart DateEnd DateStatus lidocaine 1 % 5 mL Indications:Mass of upper outer quadrant of left breast5 rXZMVHOD85/12/2025 Active lidocaine 1 % 5 mL Indications:Other abnormal and inconclusive findings on diagnostic imaging of breast5 gFUPJBPK19/09/78642905/03/2024Ended Active Problems ProblemNoted DateDiagnosed DateMalignant neoplasm of left breast in female, estrogen receptor positive, unspecified site of gurhao9405/19/2024 Cancer Staging: Pathologic stage from 06/05/2024:Stage IA(pT1c, pN0, cM0, G2, ER+, ND+, HER2-) - Signed by Haylee Forde MD on 07/07/2024 Encounters DateTypeDepartmentCare NcisKzzecfjausi25/09/2025 10:00 AM GRAPHIC DESIGN PROFESSOR - 03/02/2025 11:59 PM CSTHospital Encounter [facility] [address], [address] [place] [address] Padmini Bowling MD Discharge from left nipple; Other abnormal and inconclusive findings on diagnostic imaging of breast Discharge Disposition: Home or Self Care03/02/2025 10:00 AM GRAPHIC DESIGN PROFESSOR - 03/02/2025 11:59 PM CSTHospital Encounter [facility] [address], [address] [place] [address] Padmini Bowling MD Discharge from left nipple; Other abnormal and inconclusive findings on diagnostic imaging of breast Discharge Disposition: Home or Self Care03/02/20259422Mjjidn95/02/2025 1:00 PM GRAPHIC DESIGN PROFESSOR Office Visit [facility] [address] [place] [address] Padmini Bowling MD Discharge from left nipple (Primary Dx); Other abnormal and inconclusive findings on diagnostic imaging of breast 02/23/20257850Xxicig66/28/2025 11:56 AM GRAPHIC DESIGN PROFESSOR - 02/19/2025 11:59 PM CSTHospital Encounter [facility] [address] [place] [address] Padmini Bowling MD Discharge Disposition: Home or Self Care02/19/20257031Wpgzzo54/06/2025Travel 01/01/2025Orders Only [facility] [address] [place] [address] Padmini Bowling MD Nipple discharge in female (Primary Dx); Personal history of malignant neoplasm of rmcrdk5112/25/2024Telephone [facility] [address] [place] [address] [facility] [place] [place] [address] Mono Santiago PA 12/23/2024Results Follow-Up [facility] [address] [place] [place] [address] Mono Santiago PA Subj: Message about your zsqnqyr2612/22/2024 2:27 PM CDT - 12/22/2024 11:59 PM CDT Hospital Encounter [facility] [place] [address] [place] [address] Mono Santiago PA Malignant neoplasm of left breast in female, estrogen receptor positive, unspecified site of breast(H); Nipple discharge in female Discharge Disposition: Home or Self Care12/22/2024 2:27 PM CDT - 12/22/2024 11:59 PM CDTHospital Encounter [facility] [place] [address] [place] [address] Becca Yanez PA-C Malignant neoplasm of left breast in female, estrogen receptor positive, unspecified site of breast(H); Nipple discharge in female Discharge Disposition: Home or Self Care12/22/20245594Lvbczp69/24/2025 1:30 PM CDT Oncology Visit [facility] [address] [facility] [place] [place] [address] Mono Santiago PA Malignant neoplasm of left breast in female, estrogen receptor positive, unspecified site of breast(H) (Primary Dx); Nipple discharge in hxqnlx7812/16/2024Travelfrom Last 3 Months Family History Medical HistoryRelationCommentsBreast CancerNo family hx ofOvarian CancerNo family hx of Social History Tobacco UseTypesPacks/DayYears UsedDateSmoking Tobacco: FormerCigarettesPassive Smoke Exposure: NeverSmokeless Tobacco: Never Tobacco Cessation:Counseling Given: Yes Comments:Quit 2012 Alcohol UseStandard Drinks/WeekCommentsNot Currently0 (1 standard drink = 0.6 oz pure alcohol)PHQ-2AnswerDate RecordedPHQ-2 Ibrjs195dolescent Education AnswerDate RecordedGetting School Help NeededNot on file12/23/2022Interpersonal SafetyAnswerDate RecordedDo you feel physically and emotionally safe where you currently live?Yes06/05/2024Within the past 12 months, have you been hit, slapped, kicked or otherwise physically hurt by someone?No06/05/2024Within the past 12 months, have you been humiliated or emotionally abused in other ways by your partner or ex-partner?No03/14/2025CommentsNoSex and Gender InformationValueDate RecordedSex Assigned at BirthNot on fileLegal SexFemale 01/27/2012 3:24 AM CSTGender IdentityNot on fileSexual OrientationNot on file Last Filed Vital Signs Vital SignReadingTime TakenCommentsBlood Kxoinsty179/6802/23/2025 12:44 PM GRAPHIC DESIGN PROFESSOR Yruay851102/23/2025 12:44 PM DKABioylwlkcxb01.5 ??C (97.7 ??F)12/16/2024 1:18 PM CDTRespiratory Rrpn514312/16/2024 1:18 PM CDTOxygen Ydnywfhxcj01%02/23/2025 12:44 PM CSTInhaled Oxygen Concentration--Ffkcna47.8 kg (156 lb)02/23/2025 12:44 PM TVZMltiyx450.6 cm (5' 6)02/23/2025 12:44 PM CSTBody Mass Index25.18104/26/2024 12:44 PM GRAPHIC DESIGN PROFESSOR Plan of Treatment DateTypeDepartmentCare Team (Latest Contact Info)Idyupxbbfds72/10/2026 3:40 PM CSTOncology Visit [facility] [address] [facility] [place] [place] [phone] [place] [address] [place] [address] Health MaintenanceDue DateLast DoneCommentsADVANCE CARE VJLUNHHO1938NNUAL REVIEW OF HM NOAHUT19 1940 6608XFMAK1938TSH W/FREE T4 AKTMUM91 1938FALL RISK XTPFONRIKN37/21/2003ZOSTER VACCINE (2 of 3)COVID-19 VACCINE ( season)/, 10/19/2021, 01/05/2021, Additional history existsMEDICARE ANNUAL WELLNESS VISIT601/, 04/04/2023, 02/22/2022, Additional history existsDTAP/TDAP/TD VACCINE (2 - Td or Tdap)DEXA, 08/01/2017PNEUMOCOCCAL VACCINE 50+ OLPGGWzfecaevo33/06/2016, 12/15/2014RSV YNUJVRZOqkcxlmth41/26/2023 PHQ-2 (once per calendar year)Jsksqwafs52/01/2025MAMMO SCREENINGDiscontinued 12/22/2024, 05/06/2024, 05/06/2024, Additional history existsINFLUENZA VACCINE Mzekakxyt61/14/2025, 01/14/2024, 12/13/2022, Additional history existsHPV VACCINE (No Doses Required)CompletedMENINGITIS VACCINEAged OutNo longer eligible based on patient's age to complete this topic Procedures Procedure NamePriorityDate/TimeAssociated DiagnosisCommentsMA POST PROCEDURE ESZIVqbasnq50/09/2025 11:10 AM GRAPHIC DESIGN PROFESSOR Discharge from left nipple Other abnormal and inconclusive findings on diagnostic imaging of breast US BREAST BIOPSY CORE NEEDLE BPIBDajxbna95/09/2025 10:54 AM GRAPHIC DESIGN PROFESSOR Discharge from left nipple Other abnormal and inconclusive findings on diagnostic imaging of breast SURGICAL PATHOLOGY VSYQGgazmqo38/09/2025 10:50 AM GRAPHIC DESIGN PROFESSOR Discharge from left nipple Other abnormal and inconclusive findings on diagnostic imaging of breast MR BREAST BILATERAL W/O & W EZGDUNDSDjqogok23/28/2025 1:59 PM GRAPHIC DESIGN PROFESSOR Nipple discharge in female Personal history of malignant neoplasm of breast US BREAST LEFT LIMITED 1-3 MMFUJHLMIOjmosvf03/30/2025 3:23 PM CDT Malignant neoplasm of left breast in female, estrogen receptor positive, unspecified site of breast(H) Nipple discharge in female MA DIAGNOSTIC LEFT W/ EUIYUihcogg00/30/2025 3:15 PM CDT Malignant neoplasm of left breast in female, estrogen receptor positive, unspecified site of breast(H) Nipple discharge in female from Last 3 Months Results * MA Post Procedure Left (03/02/2025 11:10 AM GRAPHIC DESIGN PROFESSOR)Anatomical RegionLaterality ModalityBreastLeftMammographySpecimen (Source)Anatomical Location / Laterality Collection Method / VolumeCollection TimeReceived Time Impressions 03/02/2025 11:12 AM GRAPHIC DESIGN PROFESSOR IMPRESSION: Successful left breast ultrasound-guided core biopsy and clip placement. ??Final pathology is pending. ?? EVAN MÁRQUEZ MD Narrative 03/02/2025 11:12 AM GRAPHIC DESIGN PROFESSOR ULTRASOUND-GUIDED LEFT BREAST CORE BIOPSY; CLIP PLACEMENT; [...] pending. EVAN MÁRQUEZ MD Authorizing ProviderResult TypeResult StatusMeav Bowling MDALLIANCEHEALTH MADILL [facility] [place] [facility]AMMO[facility]AP[facility] ORDERABLESFinal Result * US Breast Biopsy Core Needle, 1St Lesion Left (03/02/2025 10:54 AM GRAPHIC DESIGN PROFESSOR) Anatomical RegionLateralityModalityBreastLeftUltrasoundSpecimen (Source) Anatomical Location / LateralityCollection Method / VolumeCollection Time Received Time Impressions 03/02/2025 11:12 AM GRAPHIC DESIGN PROFESSOR IMPRESSION: Successful left breast ultrasound-guided core biopsy and clip placement. ??Final pathology is pending. ?? EVAN MÁRQUEZ MD Narrative 03/02/2025 11:12 AM GRAPHIC DESIGN PROFESSOR ULTRASOUND-GUIDED LEFT BREAST CORE BIOPSY; CLIP PLACEMENT; [...] ??No pain following biopsy. Authorizing ProviderResult TypeResult StatusPadmini OAKES US ORDERABLESFinal Result * Surgical Pathology Exam (03/02/2025 10:50 AM GRAPHIC DESIGN PROFESSOR)ComponentValueRef RangeTest MethodAnalysis TimePerformed AtPathologist SignatureCase ReportSurgical Pathology Report ? Case: [id number] ? Authorizing Provider: ??Padmini Bowling MD ?Collected: ? 03/02/2025 10:50 AM ? Ordering Location: ? [facility] ?? Received: ?03/02/2025 11:35 AM? Breast Center ? Pathologist: ? Judie Barrios MD ? Specimen: ?Breast, Left ? 03/05/2025 1:31 PM [facility]ORATORYFinal DiagnosisA. Breast, left, posterior to nipple, 2 cm size, needle core biopsy: - Fragments of benign fibroadipose and muscular tissue representing retroareolar area with focal cystic changes. 03/05/2025 1:31 PM [facility] at 1331 CSTCommentClinical correlation is recommended to ensure that the biopsy findings are product support representative of the radiographic area of concern. Multiple levels examined.03/05/2025 1:31 PM [facility] LABORATORYClinical Information Left 16 mm linear nonmass enhancement directly posterior to the inverted nipple. 03/05/2025 1:31 PM [facility] LABORATORYGross DescriptionA(1). Breast, Left, : The specimen is received in formalin, labeled with the patient's name, medical record number and other identifying information designated breast, left. It consists of 3 fibrofatty soft tissue cores, 1.5-1.7 x 0.2 cm. Wrapped, inked green, and submitted entirely in 1 cassette. Time collected: 1050 Time in formalin: 1052 (YAAKOV Maher)03/02/2025 12:19 PM03/05/2025 1:31 PM [facility] Microscopic DescriptionMicroscopic examination was performed and results are incorporated into the final diagnosis. Designated ink identified.03/05/2025 1:31 PM [facility] LABORATORYPerforming LabsThe technical component of this testing was completed at [facility]. Stain controls for all stains resulted within this report have been reviewed and show appropriate reactivity.03/05/2025 1:31 PM [facility] LABORATORYCase Images 03/05/2025 1:31 PM [facility] LABORATORYSpecimen (Source)Anatomical Location / LateralityCollection Method / VolumeCollection TimeReceived TimeBiopsyLEFT BREAST STRUCTURE / Ntkpovo0203/02/2025 10:50 AM CST03/02/2025 11:35 AM CSTComment: Left breast ultrasound core biopsy, posterior to nipple, approximately 2.0 cm size on MRI. Low suspicion. Performed by Dr. Evan Márquez. Indication: left breast area of enhancement posterior to nipple on recent MRI, h/o left breast cancer approx 9 months ago. Narrative Authorizing ProviderResult TypeResult StatusMegan Ayesha WILSON Final ResultPerforming OrganizationAddressCity/State/ZIP CodePhone Number [facility] [address] [place] [address], [place] [phone] [facility] [address] [facility] (1st floor, no room number) [place] [address], [facility] * (ABNORMAL) MR Breast Bilateral w/o & w Contrast (02/19/2025 1:59 PM GRAPHIC DESIGN PROFESSOR) Anatomical RegionLateralityModalityBreast, SUBRAD BREAST, UMP BREAST, RAD MR BilateralMagnetic ResonanceSpecimen (Source)Anatomical Location / Laterality Collection Method / VolumeCollection TimeReceived Time Impressions 02/19/2025 2:45 PM GRAPHIC DESIGN PROFESSOR IMPRESSION: BI-RADS CATEGORY: 4 - Suspicious. 1. ??Left 16 mm linear nonmass enhancement directly posterior to the inverted nipple. Recommend tissue sampling of this area. Given patient's age and subareolar location of the enhancement, MRI biopsy could be technically challenging. Recommend ultrasound-guided biopsy using anatomic landmarks targeting immediately deep to the inverted nipple. 2. ??Left breast posttreatment changes in the upper outer quadrant posterior depth. 3. ??No MR evidence of malignancy in the right breast RECOMMENDED FOLLOW-UP: Ultrasound guided biopsy of the left subareolar region. NANCY CLARK MD Narrative 02/19/2025 2:45 PM GRAPHIC DESIGN PROFESSOR Exam: Breast MRI, with and without Contrast, [...] No lymphadenopathy. Internal Mammary Chain: No lymphadenopathy. Authorizing ProviderResult TypeResult StatusPadmini Bowling MDALLIANCEHEALTH [facility] [place] MRI ORDERABLESFinal Result * US Breast Unilateral Left (12/22/2024 3:23 PM CDT)Anatomical RegionLaterality ModalityBreastLeftUltrasoundSpecimen (Source)Anatomical Location / Laterality Collection Method / VolumeCollection TimeReceived Time Impressions 12/22/2024 3:24 PM CDT IMPRESSION: ACR BI-RADS CATEGORY: 2 - Benign. Nipple discharge is presumably benign. Any further management based on clinical bronchus, if needed. RECOMMENDED FOLLOW-UP: Routine yearly mammography beginning at age 40 or as discussed with your provider. GREGORY PENNINGTON MD Narrative 12/22/2024 3:24 PM CDT EXAM: MA DIAGNOSTIC LEFT W/ LAM, US BREAST LEFT LIMITED 1-3 QUADRANTS, 12/22/2024 3:15 PM HISTORY: Nipple discharge since surgery for breast cancer earlier this year COMPARISON: 05/06/2024 and subsequent diagnostic workup and biopsy BREAST DENSITY: There are scattered areas of fibroglandular density. FINDINGS: Diagnostic tomosynthesis with CAD shows intermittent posttreatment change. Targeted ultrasound shows normal retroareolar breast with underlying postoperative change in the left breast. Authorizing ProviderResult TypeResult StatusMono Wypyszynski PAIMG US ORDERABLESEdited * MA Diagnostic Left w/ Lam (12/22/2024 3:15 PM CDT)Anatomical RegionLaterality ModalityBreastBilateralMammographySpecimen (Source)Anatomical Location / LateralityCollection Method / VolumeCollection TimeReceived Time Impressions 12/22/2024 3:24 PM CDT IMPRESSION: ACR BI-RADS CATEGORY: 2 - Benign. Nipple discharge is presumably benign. Any further management based on clinical bronchus, if needed. RECOMMENDED FOLLOW-UP: Routine yearly mammography beginning at age 40 or as discussed with your provider. GREGORY PENNINGTON MD Narrative 12/22/2024 3:24 PM CDT EXAM: MA DIAGNOSTIC LEFT W/ LAM, US BREAST LEFT LIMITED 1-3 QUADRANTS, 12/22/2024 3:15 PM HISTORY: Nipple discharge since surgery for breast cancer earlier this year COMPARISON: 05/06/2024 and subsequent diagnostic workup and biopsy BREAST DENSITY: There are scattered areas of fibroglandular density. FINDINGS: Diagnostic tomosynthesis with CAD shows intermittent posttreatment change. Targeted ultrasound shows normal retroareolar breast with underlying postoperative change in the left breast. Authorizing ProviderResult TypeResult StatusAlljose [place] MAMMOGRAPHY ORDERABLESFinal Result from Last 3 Months Insurance Care Teams Team MemberRelationshipSpecialtyStart DateEnd Date Mica Sellers DO PCP - GeneralFamily Medicine04/29/24 Haylee Forde MD [address] [place] [address] PhysicianHematology & Oncology05/19/24 [place] [address] [id number] Assigned Cancer Care Provider06/14/24 Padmini Bowling MD [address] [facility] [address] [place], [place] [id number] Assigned Surgical Provider06/14/24
--- OUTSIDE RECORDS SUMMARY | 2025-03-15 19:35 | XMS_ITS | Encounter Summary ---
Author Organization [facility] Address [address] [place] [address] Care Team Providers Care Almond Sorter Name Role Phone Mica Sellers Primary Care Provider [phone] Haylee Forde MD Unavailable [phone] Haylee Forde MD Unavailable [phone] Padmini Bowling MD Unavailable [phone] Encounter Details DateTypeDepartmentCare Team (Latest Contact Info)Dosihnivfys27/09/2025Travel Social History Tobacco UseTypesPacks/DayYears UsedDateSmoking Tobacco: FormerCigarettesPassive Smoke Exposure: NeverSmokeless Tobacco: Never Comments:Quit 2012 Alcohol UseStandard Drinks/WeekCommentsNot Currently0 (1 standard drink = 0.6 oz pure alcohol)PHQ-2AnswerDate RecordedPHQ-2 Tiocs167dolescent Education AnswerDate RecordedGetting School Help NeededNot on [...] Plan of Treatment DateTypeDepartmentCare Team (Latest Contact Info)Cjmthtpxdxn59/10/2026 3:40 PM CSTOncology Visit [facility] [address] [address] [facility] [place] [address] [place] [address] [place], [place] [address] documented as of this encounter Visit Diagnoses Not on filedocumented in this encounter Care Teams Team MemberRelationshipSpecialtyStart DateEnd Date Mica Sellers DO PCP - GeneralFamily Medicine04/29/24 Haylee Forde MD [address] [place] [address] PhysicianHematology & Oncology05/19/24 [place] [address] [place] [address] Assigned Cancer Care Provider06/14/24 Padmini Bowling MD [address] [facility] [address] [place], [place] [address] Assigned Surgical Provider06/14/24documented as of this encounter
--- OUTSIDE RECORDS SUMMARY | 2025-03-15 19:35 | XMS_ITS | Clinical Summary ---
Author Organization [employer] [facility] Address [address] [place] [address] Care Team Providers Care Pipe Maker Name Role Phone Mica Sellers DO Primary Care Provider [phone] Allergies No known active allergies Medications MedicationSigDispense QuantityRefillsLast FilledStart DateEnd DateStatus polyethylene glycol (MIRALAX; GLYCOLAX) 17 g powder for solution Indications:Chronic constipationTake 17 g by mouth once daily. 30 Packet 6104/01/2016Active Additional Information Patient taking differently:1 Packet OralEVERY OTHER DAY, Reported on 12/31/2024 Nebulizer Indications:Stage 4 very severe COPD by GOLD classification ()Nebulizer, disposable neb kit x 4, reuseable neb kit x 1, mask x 1, filters x 1. Frequency of use: daily; Medication: duoneb Length of need: 99 months 1 Device 04/02/2019Active atorvastatin (LIPITOR) 10 mg tablet Indications:Pure hypercholesterolemiaTake 1 Tablet (10 mg) by mouth at bedtime. 100 Tablet 5Active amLODIPine (NORVASC) 5 mg tablet Indications:Essential hypertensionTake 1 Tablet (5 mg) by mouth once daily. 100 Tablet 5Active albuterol-ipratropium (DUONEB) (2.5-0.5 mg) in 3 mL NEBULIZATION solution Indications:Stage 4 very severe COPD by GOLD classification ()INHALE THE CONTENTS OF 1 VIAL (3ML) VIA NEBULIZER FOUR TIMES DAILY NEEDED FOR SHORTNESS OF BREATH, COPD, OR COUGH 75 mL 5Active albuterol HFA (Ventolin HFA) 90 mcg/actuation inhaler Indications:Stage 4 very severe COPD by GOLD classification (HC)Inhale 1 Puff by mouth 4 times daily if needed for Shortness of Breath 1st choice. 1 Each 605Active docusate (COLACE) 100 mg capsule Indications:Chronic constipationTake 1 Capsule (100 mg) by mouth 2 times daily if needed for Constipation. 180 Capsule 5Active omeprazole (PRILOSEC) 20 mg Delayed-Release capsule Indications:GERD without esophagitisTake 1 Capsule (20 mg) by mouth once daily before a meal. 100 Capsule 5Active levothyroxine (SYNTHROID) 75 mcg tablet Indications:Acquired hypothyroidismTake 1 Tablet (75 mcg) by mouth before breakfast. 100 Tablet 5Active metoprolol succinate (TOPROL XL) 100 mg Sustained-Release tablet Indications:Essential hypertensionTake 1 Tablet (100 mg) by mouth once daily. 100 Tablet 5Active cyanocobalamin (Vitamin B-12) 1,000 mcg tablet Indications:Vitamin B12 deficiencyTake 1 Tablet (1,000 mcg) by mouth once daily. 100 Tablet 5Active fluticasone propion-salmeteroL (ADVAIR) 250-50 mcg/Dose diskus inhaler Indications:Stage 4 very severe COPD by GOLD classification (HC)Inhale 1 Puff by mouth two times daily. 180 Each 5Active tiotropium bromide (Spiriva Respimat) 2.5 mcg/actuation mist for inhalation Indications:Stage 4 very severe COPD by GOLD classification (HC)Inhale 2 Puffs by mouth once daily. 3 Each 5Active Graduated Compression Stockings Indications:Leg swellingFor personal use. Length: calf Strength: 20-30 mmHg Circumference in cm: For calf: Ankle 26cm, Lkdc13dh, Ankle to calf length 36cm. 1 Packet 5ActiveHospital, Clinic, or Other Facility Administered Medication Ordered DoseRouteFrequencyStart DateEnd DateStatus albuterol-ipratropium (DUONEB) (2.5 mg-0.5 mg)/3 mL NEBULIZATION solution 3 mL Indications:Wheezing3 mLNEBONE TIME5105/16/2024Ended Active Problems ProblemNoted DateDiagnosed DateVenous yrhvgb7910/07/2024History of breast cancer 10/07/2024Sjogren syndrome with glirwwpezbzmfaiufwtj71/23/2024AMD (age related macular degeneration)4Dermatochalasis of both upper fympbxo9008/10/2021 Vitamin B12 bzcxmjgygq14/10/1621Reovmenfinh43/31/2019Meibomian gland dysfunction (MGD) of both eyes10/04/2017Hyperopia of both eyes with astigmatism and zmwbmwacrk96/31/2018Bilateral qmxvdvhehkfv76/31/2018Stage 4 very severe COPD by GOLD mjtgvoteyyukiz56/04/2018 Overview (07/26/2017): Spirometry 07/26/17. FEV1 26. Essential sxwgazujzxad20/18/2017 Overview (09/09/2016): On Metoprolol XL 100mg daily and lasix 20mg daily. Lisinopril and chlorthalidone caused electrolyteabnormalities. ?? Prolonged QT edivdhop77/18/5054Mgwwwiejn56/18/2017Bilateral lower extremity edema09/09/2016Vitamin D bdachykndq34/21/2016Pulmonary sndmcjaya02/04/2016 History of incidental Abnormal EKG010/06/20135493Fihopdfpk54/02/2014HYPOTHYROIDISM NOS06/06/1999HYPERCHOLESTEROLEMIA, PURE Overview (04/09/2024): Patient discontinued statins indefinitely due to intolerance. THYROTOXICOSIS NOS, NO CRISIS Resolved Problems ProblemNoted DateDiagnosed DateResolved DateKeratitis sicca, left eye08/22/2017 4Chronic coughCOPD (chronic obstructive pulmonary disease) Encounters DateTypeDepartmentCare VyfqQvfzmzlkljg44/22/2025 6:40 PM CSTOffice Visit [facility] [place] [address] [place] [address] Bita Banks PA Shortness Of Gsjixf2603/15/20250148Aesllb73/12/2025 11:00 AM CSTOffice Visit [facility] [address] [place] [address] David Byrd, OD Eye Exam (CEE)02/03/20251885Hifzwn52/16/2025Telephone [facility] [address] [place] [address] Mica Sellers, DO Tlzvqzh5401/01/2025Orders Only [facility] [address] [place] [address] Mica Sellers, DO <No scans attached>12/31/2024 1:05 PM CDTAncillary Procedure [place] [address] [place] [address] 12/31/2024 12:30 PM CDTOffice Visit [facility] [address] [place] [address] Mica Sellers, Shortness Of Breath; Medication Rfjbohnmec69/09/4493Udubsq64/08/2025Nurse Triage [facility] Nurse Triage Mica Sellers, Difficulty Cvmagdcub13/02/2025 10:50 AM CDTOffice Visit [facility] [address] [place] [address] Bita Garcia PA Leg Rvkjzomd50/02/0557Jrhfxb16/29/2025Nurse Triage [place] [address] [place] [address] Mica Sellers, Breathing Problemfrom Last 3 Months Immunizations ImmunizationAdministration DatesNext DueInfluenza RIV4 (Age 18+ Years) PRESERV FREE01/01/2019Influenza Virus, Cacfexpbmyu81/06/2016Influenza, High-dose Cbrkgwzsflm01/22/2024,12/20/2017,01/22/2017,02/28/2016,12/15/2014,12/22/2013, 12/19/2011Influenza, High-dose Quadrivalent Txxihsnvdnt96/21/2023,02/01/2022, 12/05/2020,11/24/2019Influenza, IIV3 (Age 6-35 mos)01/18/2009Pneumococcal Poly,23-Valent (Pneumovax)02/28/2016Pneumococcal conj 13-Valent (Prevnar 13) 12/15/2014RSV, Recombinant ADJ Reconstituted (Arexvy 120MCG/0.5mL)12/18/2022Tdap 04/27/2016Zoster (Zostavax-ZVL, live)02/17/2013 Family History Medical HistoryRelationNameCommentsGeneticOtherColon Cancer - Father~Sugar diabetes - UncleCancer-breastNo Family HistoryRelationNameStatusCommentsOther Social History Tobacco UseTypesPacks/DayYears UsedDateSmoking Tobacco: FormerCigarettes0.563 1952 - 2015Passive Smoke Exposure: PastSmokeless Tobacco: Never Tobacco Cessation:Counseling Given: Not Answered Comments:Smoking History Packs/day: 3/4 Quit 2012 Alcohol UseStandard Drinks/WeekCommentsNo0 (1 standard drink = 0.6 oz pure alcohol)PHQ-2AnswerDate RecordedPHQ-2 TOTAL UYTRV562Social Connections AnswerDate RecordedDo you often feel lonely or isolated from those around you?0 04/04/2023lcohol UseAnswerDate RecordedHow often do you have a drink containing alcohol?verage Number of DrinksNot on file12/31/2024Frequency of Binge DrinkingNot on file12/31/2024Financial Resource StrainAnswerDate Recorded Difficulty of Paying Living Njeyuiuw770ifficulty of Paying Living ExpensesNot on file04/04/2023Food InsecurityAnswerDate RecordedDo you worry your food will run out before you are able to buy more?Transportation NeedsAnswerDate RecordedDoes lack of transportation keep you from medical appointments?oes lack of transportation keep you from work, meetings or getting things that you need?Housing StabilityAnswerDate Recorded What is your housing situation today?UtilitiesAnswerDate RecordedDo you have trouble paying for utilities (for example, heat, electricity, water, phone)?regnantCommentsNoSex and Gender InformationValueDate Recorded Sex Assigned at BirthNot on fileLegal JgcDxppfx70/14/2013 6:28 AM CSTGender IdentityNot on fileSexual OrientationNot on file Obstetrics History GravidaParaTermPretermABIABSABEctopicMultipleLivingLive Ljnnpm5216JtghLawiuwkHY Total LaborLabor/2nd/3xbXajmfgQbiGkkhYlplLHBAabM9L7MrrvWpuoNnuiztdQzqqmlsDsjvwbu GravidaGravidaGravidaGravidaGravida Last Filed Vital Signs Vital SignReadingTime TakenCommentsBlood Bcgoppdq387/8803/15/2025 6:44 PM LEARNING DISABILITIES SPECIALIST Ezrxd214803/15/2025 6:44 PM KRLPfapxbjyarl51.7 ??C (98 ??F)03/15/2025 6:44 PM LEARNING DISABILITIES SPECIALIST Respiratory Zuwr768403/15/2025 6:44 PM CSTOxygen Ydlqwdljtt26%03/15/2025 6:45 PM CSTInhaled Oxygen Concentration--Hjtojo55.9 kg (156 lb 6.4 oz)12/31/2024 12:37 PM QBZWeybvz312 cm (5' 5.35)05/28/2024 11:15 AM CSTBody Mass Index25.75 05/28/2024 11:15 AM LEARNING DISABILITIES SPECIALIST Plan of Treatment DateTypeDepartmentCare Team (Latest Contact Info)Aicgebrhvoy08/23/2025 11:40 AM CSTOffice Visit [facility] [address] [place], [place] [id number] [place] [address] [place], [place] [address] 04/07/2025 11:15 AM CSTOffice Visit [facility] [address] [facility] [place] [address] [place] [address] [facility] [address] [place], [place] [address] Health MaintenanceDue DateLast DoneCommentsZoster (shingles) series for age 50+ (2 of 3)COVID-19 vaccine series ( season) /, 10/19/2021, 01/05/2021, Additional history existsInfluenza Vaccine (#1)/, 01/01/2019, 12/20/2017, Additional history existsDepression screening for age 12+/, 04/08/2024, 04/05/2023, Additional history existsMedicare Wellness for age 65+04/09/2025 04/08/2024, 04/04/2023, 02/22/2022, Additional history existsBMI (ht and wt on same day) for age 18+603/08/2024, 04/08/2024, 01/15/2024, Additional history existsTetanus /05/2016Pneumococcal series for age 50+ Cajxwsflb56/06/2016, 12/15/2014RSV vaccine for adults or pregnancyCompleted 3DEXA/DXA scan for age 65+Fvsiaccmm45/13/2025, 08/01/2017Hepatitis B series for 19+Aged OutNo longer eligible based on patient's age to complete this topic Medical Devices ImplantedTypeAreaManufacturerDevice IdentifierShelf Expiration DateModel / Serial / LotLens Iol 23.5 Wf Zdhgwvhsf04fh-78.5 - [id number] Implanted:Qty: 1 on 08/03/2013 [facility]: [employer]10/03/[id number]-81.5# / [id number] / Lens Iol 23.5 Wf Gpccrsjbe99sd-65.5 - [id number] Implanted:Qty: 1 on 10/12/2013 [facility]: [employer]06/22/[id number]-20.5# / [id number] / Procedures Procedure NamePriorityDate/TimeAssociated DiagnosisCommentsCBC WITH AUTO DTLGHASWJGLJIjtrdoh85/09/2025 1:47 PM CDT YADAV (dyspnea on exertion) COMP METABOLIC UMVRKWtdyxzh03/09/2025 1:47 PM CDT YADAV (dyspnea on exertion) Leg swelling PRO-RHHNjaewkf91/09/2025 1:47 PM CDT YADAV (dyspnea on exertion) Leg swelling CBC WITH AUTO VEBCMVGKWKPJBuwoszw63/09/2025 1:47 PM CDT YADAV (dyspnea on exertion) VITAMIN Q77Wcgoblx79/09/2025 1:47 PM CDT Vitamin B12 deficiency XR CHEST 2 VIEWS PA AND QGSGATULyuphoz30/09/2025 1:12 PM CDT YADAV (dyspnea on exertion) Leg swelling XR DXA BONE DENSITY 2 SITES IKXXVBkefnjv61/13/2025 1:38 PM CDT Menopause from Last 3 Months or Most Recently Relevant to Health Maintenance Results * (ABNORMAL) CBC WITH AUTO DIFFERENTIAL (12/31/2024 1:47 PM CDT)ComponentValue Ref RangeTest MethodAnalysis TimePerformed AtPathologist SignatureWHITE BLOOD CELL COUNT7.63.8 - 10.8 Thousand/uL01/01/2025 3:02 AM CDTQUEST DIAGNOSTICSRED BLOOD CELL COUNT5.24(H)3.80 - 5.10 Million/uL01/01/2025 3:02 AM CDTQUEST KPZUVWWQCJLRRHIKPDKVE97.511.7 - 15.5 g/dL01/01/2025 3:02 AM CDTQUEST ZAYAEXCETLXVLLGHLWUPP26.835.0 - 45.0 %01/01/2025 3:02 AM CDT[facility] MCV83.680.0 - 100.0 fL01/01/2025 3:02 AM CDTQUEST XJORKYNZOJHSVZ42.8(L)27.0 - 33.0 pg01/01/2025 3:02 AM CDTQUEST VLYXAGRCGSXJUSB49.8(L)32.0 - 36.0 g/dL 01/01/2025 3:02 AM CDTQUEST DIAGNOSTICSComment: For adults, a slight decrease in the calculated MCHC value (in the range of 30 to 32 g/dL) is most likely not clinically significant; however, it should be interpreted with caution in correlation with other red cell parameters and the patient's clinical condition. RDW14.011.0 - 15.0 %01/01/2025 3:02 AM CDTQUEST DIAGNOSTICSPLATELET YTXKR424076 - 400 Thousand/uL01/01/2025 3:02 AM CDTQUEST DIAGNOSTICSMPV9.77.5 - 12.5 fL 01/01/2025 3:02 AM CDTQUEST NLCPGHABOWVIWANNACMUSA88.1%01/01/2025 3:02 AM CDT [facility] ZSLBZDJLREJYMEGRRXJUOT88.0%01/01/2025 3:02 AM CDT[facility] CUGPHZOHD51.6%01/01/2025 3:02 AM CDTQUEST DIAGNOSTICSEOSINOPHILS3.5%01/01/2025 3:02 AM CDTQUEST DIAGNOSTICSBASOPHILS0.8%01/01/2025 3:02 AM CDT[facility] ABSOLUTE RADBQYDWBPR17782396 - 7800 cells/uL01/01/2025 3:02 AM CDTQUEST DIAGNOSTICSABSOLUTE UUPGMDIZRQE6150392 - 3900 cells/uL01/01/2025 3:02 AM CDT [facility] DIAGNOSTICSABSOLUTE WBZFUYBBP071773 - 950 cells/uL01/01/2025 3:02 AM CDT [facility] DIAGNOSTICSABSOLUTE GVNARLTJBBC96456 - 500 cells/uL01/01/2025 3:02 AM CDT [facility] DIAGNOSTICSABSOLUTE BLUYWTVSS178 - 200 cells/uL01/01/2025 3:02 AM CDTQUEST DIAGNOSTICSSpecimen (Source)Anatomical Location / LateralityCollection Method / VolumeCollection TimeReceived TimeBloodBLOOD SPECIMEN / UnknownQuest Collect / Bmhnvua6312/31/2024 1:47 PM CDT1 1:47 PM CDT Narrative Authorizing ProviderResult TypeResult StatusSherri Marie Sellers DOHEMATOLOGYFinal ResultPerforming OrganizationAddressCity/State/ZIP CodePhone Number [facility] [address] [address], [place] [phone] * PRO-BNP (12/31/2024 1:47 PM CDT)ComponentValueRef RangeTest MethodAnalysis TimePerformed AtPathologist SignatureNT HLITEV758<450 pg/mL01/01/2025 2:21 PM CDTQUEST DIAGNOSTICSSpecimen (Source)Anatomical Location / Laterality Collection Method / VolumeCollection TimeReceived TimeBloodBLOOD SPECIMEN / UnknownQuest Collect / Xwfztev9512/31/2024 1:47 PM CDT1 1:47 PM CDT Narrative Authorizing ProviderResult TypeResult StatusSherri Marie Sellers DOSEND OUTSFinal ResultPerforming OrganizationAddressCity/State/ZIP CodePhone Number [facility] [address] [address], [place] [phone] * VITAMIN B12 (12/31/2024 1:47 PM CDT)ComponentValueRef RangeTest MethodAnalysis TimePerformed AtPathologist SignatureVITAMIN [id number] - 1100 pg/mL01/01/2025 4:21 AM CDTQUEST DIAGNOSTICSSpecimen (Source)Anatomical Location / Laterality Collection Method / VolumeCollection TimeReceived TimeBloodBLOOD SPECIMEN / UnknownQuest Collect / Flxzbgs6112/31/2024 1:47 PM CDT1 1:47 PM CDT Narrative Authorizing ProviderResult TypeResult StatusSherri Marie Sellers DOCHEMISTRYFinal ResultPerforming OrganizationAddressCity/State/ZIP CodePhone Number [facility] [address] [place] [address], [place] [phone] * COMP METABOLIC PANEL (12/31/2024 1:47 PM CDT)ComponentValueRef RangeTest MethodAnalysis TimePerformed AtPathologist NtefbrzxjYMMAEA137073 - 146 mmol/L 01/01/2025 3:58 AM CDTQUEST DIAGNOSTICSPOTASSIUM4.43.5 - 5.3 mmol/L1 3:58 AM CDTQUEST XUVTMASLSQDROSFPKKW83143 - 110 mmol/L1 3:58 AM CDT [facility] DIAGNOSTICSCARBON CRSQISZ3164 - 32 mmol/L1 3:58 AM CDTQUEST UHUGQEEOQNIEFVBPCP5978 - 99 mg/dL01/01/2025 3:58 AM CDT[facility] Comment: ? Fasting reference interval CALCIUM9.28.6 - 10.4 mg/dL01/01/2025 3:58 AM CDTQUEST DIAGNOSTICSCREATININE0.84 0.60 - 0.95 mg/dL01/01/2025 3:58 AM CDTQUEST DIAGNOSTICSBUN/CREATININE RATIOSEE NOTE: (calc)01/01/2025 3:58 AM CDTQUEST DIAGNOSTICSComment: ?? Not Reported: BUN and Creatinine are within ?? reference range. ? EGFR68> OR = 60 mL/min/1.74w82001/01/2025 3:58 AM CDTQUEST DIAGNOSTICSALBUMIN4.1 3.6 - 5.1 g/dL01/01/2025 3:58 AM CDTQUEST DIAGNOSTICSPROTEIN, TOTAL6.16.1 - 8.1 g/dL01/01/2025 3:58 AM CDTQUEST DIAGNOSTICSBILIRUBIN, TOTAL0.50.2 - 1.2 mg/dL 01/01/2025 3:58 AM CDTQUEST DIAGNOSTICSALKALINE THRXEGGDKSF4221 - 153 U/L 01/01/2025 3:58 AM CDTQUEST GMJIJJMWYTJALL163 - 29 U/L1 3:58 AM CDT [facility] XZCVVLJXQGYEDA0602 - 35 U/L1 3:58 AM CDTQUEST DIAGNOSTICSUREA NITROGEN (BUN)127 - 25 mg/dL01/01/2025 3:58 AM CDTQUEST DIAGNOSTICSGLOBULIN2.0 1.9 - 3.7 g/dL (calc)01/01/2025 3:58 AM CDTQUEST DIAGNOSTICSALBUMIN/GLOBULIN RATIO2.11.0 - 2.5 (calc)01/01/2025 3:58 AM CDTQUEST DIAGNOSTICSSpecimen (Source) Anatomical Location / LateralityCollection Method / VolumeCollection Time Received TimeBloodBLOOD SPECIMEN / UnknownQuest Collect / Wmzxxdw4812/31/2024 1:47 PM CDT1 1:47 PM CDT Narrative Authorizing ProviderResult TypeResult StatusSherri Marie Sellers DOCHEMISTRYFinal ResultPerforming OrganizationAddressCity/State/ZIP CodePhone Number [facility] [id number] [place] [address], * XR CHEST 2 VIEWS PA AND LATERAL (12/31/2024 1:12 PM CDT)Anatomical Region LateralityModalityCHEST, THORAX, Lung, HEARTComputed RadiographySpecimen (Source)Anatomical Location / LateralityCollection Method / VolumeCollection TimeReceived Time12/31/2024 1:23 PM CDT Impressions 12/31/2024 1:23 PM CDT No acute findings. Dictated by Kevin Carroll MD @ 12/31/2024 1:23:09 PM (Electronically Signed) Narrative 12/31/2024 1:23 PM CDT For Patients: As a result of the Cures Act, medical imaging exams and procedure reports are released immediately into your electronic medical record. You may view this report before your referring provider. If you have questions, please contact your health care provider. INDICATION: Leg swelling YADAV (dyspnea on exertion) TECHNIQUE: Chest 2 views COMPARISON: 01/30/2017 FINDINGS: No pulmonary edema. No pleural effusion. Scarring within the anterior lingula noted. Mediastinum similar. No fracture. Procedure Note Kevin Carroll MD - 12/31/2024 For Patients: As a result of the Cures Act, medical imagingexams and procedure reports are released immediately into your electronicmedical record. You may view this report before your referring provider.If you have questions, please contact your health care provider. INDICATION: Leg swelling YADAV (dyspnea on exertion) TECHNIQUE: Chest 2 views COMPARISON: 01/30/2017 FINDINGS: No pulmonary edema. No pleural effusion. Scarring within the anteriorlingula noted. Mediastinum similar. No fracture. IMPRESSION: No acute findings. Dictated by Kevin Carroll MD @ 12/31/2024 1:23:09 PM (Electronically Signed) Authorizing ProviderResult TypeResult StatusSherri Marie Sellers DOGENERAL IMAGING Final Result * XR DXA BONE DENSITY 2 SITES AXIAL (08/04/2024 1:38 PM CDT)Anatomical Region LateralityModalitySpine, HIPS, HIPL, HIPROtherSpecimen (Source)Anatomical Location / LateralityCollection Method / VolumeCollection TimeReceived Time Impressions 08/11/2024 1:55 PM CDT Normal bone density. RECOMMENDATIONS: The National Osteoporosis Foundation recommends pharmacologic treatment for patients with T-scores of -2.5 or less, patients with prior history of fragility fractures, or patients with 10-year probability of greater than 3% at hips or greater than 20% of suffering major osteoporotic fractures. Recommend continued optimization of calcium and vitamin D intake through dietary means and/or supplementation and regular exercise. Repeat scan recommended in 3-5 years. Scarlet Ibarra PA-C [facility] 08/11/2024 Narrative 08/11/2024 1:55 PM CDT For Patients: Results are automatically released to your [facility] account once available, in compliance with federal regulations. This means that you may see your results before your provider has had a chance to review them. Please allow 2-3 business days for your provider to comment on the results. XR DXA Bone Mineral Density (BMD) EXAM LOCATION: [facility] [address] [facility] [address] PATIENT NAME: Cande Matias DATE OF : 1940 EXAM DATE: 08/04/2024 REQUESTING PROVIDER: Mica Sellers DO GENDER AT : female HEIGHT: 5' 5.35 (05/28/2024) WEIGHT: ??150 lb (05/28/2024) MENOPAUSAL STATUS: Postmenopausal RACE/ETHNICITY: White RISK FACTORS: Smoking (prior) and White Race CURRENT MEDICATION FOR BONE LOSS: NONE INDICATION: Menopause COMPARISON DATE(S): 2018 DXA scans are compared to prior studies for a patient only when the two (or more) studies were performed on the same scanner. It is not possible to compare data generated on one scanner to data from another because there are not standards in DXA equipment. This applies even if the two scanners are made by the same immigration specialist. PROCEDURE: Dual-energy x-ray absorptiometry performed with routine technique. Reporting is completed in the form of a T-score. The T-score represents the standard deviation from peak bone mass based on young healthy adult. A Z-score is used for diagnosis in premenopausal women, and for men under the age of 50. FINDINGS: RESULT LUMBAR SPINE L1 - L4 BMD: 1.096 g/cm2 T-Score: - 0.8 Z-Score: + 1.0 Change from prior in 2018: ??Decrease 1.6%. RESULTS FEMUR Left femoral neck BMD: 0.951 g/cm2 T-Score: - 0.6 Z-Score: + 1.8 Change from prior in 2018: ??Decrease 1.2%. Right femoral neck BMD: 1.003 g/cm2 T-Score: - 0.2 Z-Score: + 2.1 Change from prior in 2018: ??Decrease 1.0%. Left hip BMD: 0.921 g/cm2 T-Score: - 0.7 Z-Score: + 1.6 Change from prior in 2018: ??Decrease 0.5%. Right hip BMD: 0.926 g/cm2 T-Score: - 0.7 Z-Score: + 1.6 Change from prior in 2018: ??Increase 0.1%. WHO criteria: Normal: T-score at or above -1 SD Osteopenia: T-score between -1.1 and -2.4 SD Osteoporosis: T-score at or below -2.5 SD Authorizing ProviderResult TypeResult StatusSherri Marie Sellers DODEXAFinal Result from Last 3 Months or Most Recently Relevant to Health Maintenance Insurance Advance Directives TypeDate RecordedPatient RepresentativeExplanationHealthcare Directive12/09/2024 12/09/2024 * Full Code (Latest Code Status on File) Date ActivatedDate InactivatedComments10/12/2013 7:48 AM10/12/2013 11:47 AM * Full Code Date ActivatedDate InactivatedComments08/03/2013 8:05 AM08/03/2013 12:27 PM Care Teams Team MemberRelationshipSpecialtyStart [place] [address] [place] [address] PCP - GeneralFamily Practice12/21/24
--- OUTSIDE RECORDS SUMMARY | 2025-03-15 19:35 | XMS_ITS | Encounter Summary ---
Author Organization [facility] Address [address] [place] [address] Care Team Providers Care Ton Container Filler Name Role Phone Mica Sellers DO Primary Care Provider [phone] Haylee Forde MD Unavailable [phone] Haylee Forde MD Unavailable [phone] Padmini Bowling MD Unavailable [phone] Encounter Details DateTypeDepartmentCare Team (Latest Contact Info)Vaxkiidaiwm75/28/2025Travel Social History Tobacco UseTypesPacks/DayYears UsedDateSmoking Tobacco: FormerCigarettes Smokeless Tobacco: Never Comments:Quit 2012 Alcohol UseStandard Drinks/WeekCommentsNot Currently0 (1 standard drink = 0.6 oz pure alcohol)PHQ-2AnswerDate RecordedPHQ-2 Bvddi858dolescent Education AnswerDate RecordedGetting School Help NeededNot on [...] Plan of Treatment DateTypeDepartmentCare Team (Latest Contact Info)Thicqtqinlg83/10/2026 3:40 PM CSTOncology Visit [facility] [address] [facility] [place] [phone] [place] [address] [place], [place] [address] documented as of this encounter Visit Diagnoses Not on filedocumented in this encounter Care Teams Team MemberRelationshipSpecialtyStart DateEnd Date Mica Sellers DO PCP - GeneralFamily Medicine04/29/24 Haylee Forde MD [address] [place] [address] PhysicianHematology & Oncology05/19/24 [place] [address] [place] [address] Assigned Cancer Care Provider06/14/24 Padmini Bowling MD [address] [facility] [address] [place], [place] [address] Assigned Surgical Provider06/14/24documented as of this encounter
[2025-03-15 19:56] VITALS: BP 181/76; PULSE 88; RESP 22; TEMP 37.7; O2SAT 84; O2SAT 88; BMI 23.9
[2025-03-15 20:49] LABS: PCR FLU A Negative PCR FLU A (Negative); PCR FLU B Negative PCR FLU B (Negative); PCR RSV Negative PCR RSV (Negative); SARS PCR* Negative SARS-CoV-2 (Negative)
[2025-03-15 21:37] VITALS: BP 185/78; PULSE 89; RESP 26; TEMP 37.9; O2SAT 91
[2025-03-15] MEDS: IPRAT-ALBUT 0.5-2.5 MG/3 ML NEB 1 NEB IH (22:15)
[2025-03-15 22:19] LABS: HCO3 VBG 23 mmol/L (21-28); Lactate Sepsis w/Reflex* 1.6 mmol/L (0.5-1.9); PCO2 VBG 37 mmHG (40-50); PO2 VBG 48.4 mmHG (25-47); pH VBG 7.409 (7.32-7.43)
[2025-03-15 22:20] LABS: Hematocrit* 41.8 % (33.0-51.0); Hemoglobin* 13.6 gm/dL (12.0-16.0); Immature Granulocytes Pct Auto 0.3 %; Mean Corpuscular HGB Conc 33 gm/dL (32-36); Mean Corpuscular Hemoglobin 26 pg (26-34); Mean Corpuscular Volume 81 fL (80-100); RDW Coefficient of Variation % 14.1 % (11.5-15.5); Red Blood Count* 5.18 m/uL (4.00-5.20); White Blood Count* 13.23 K/uL (4.50-11.00)
[2025-03-15] MEDS: cefTRIAXone 1 GM in 0.9 % SODIUM CHLORIDE Mini-bag 100 ML IVPB (22:25)
[2025-03-15 22:39] VITALS: BP 143/70; PULSE 90; RESP 20
[2025-03-15 22:40] LABS: Albumin* 4.4 g/dL (3.3-5.0); Chloride* 96 mmol/L (96-114); Potassium* 3.7 mmol/L (3.6-5.1); Sodium* 127 mmol/L (135-149)
[2025-03-15 22:43] LABS: Alanine Aminotransferase* 20 U/L (4-35); Alkaline Phosphatase* 117 U/L (40-150); Anion Gap 10 mEq/L (7-15); Aspartate Amino Transferase* 32 U/L (12-35); Bilirubin Total* 0.9 mg/dL (0.1-1.5); Blood Urea Nitrogen* 13 mg/dL (7-30); Carbon Dioxide* 21 mmol/L (20-32); Creatinine* 0.6 mg/dL (0.5-1.5); Est. Creatinine Clearance* 37.10; Estimated Glomerular Filt Rate 87 ml/min; Total Protein* 7.1 g/dL (6.0-8.3)
[2025-03-15 22:44] LABS: Calcium* 8.5 mg/dL (8.4-10.6); Glucose* 136 mg/dL (60-115)
[2025-03-15 22:53] LABS: Immature Granulocytes Abs Auto 0.00 K/uL (0.00-0.30); Lymphocytes Absolute Auto 0.50 K/uL (0.90-2.90)
[2025-03-15 22:54] LABS: Slide Review Acceptable Review (Acceptable); Slide Review Reflex No
[2025-03-15 22:59] LABS: Procalcitonin* 0.07 ng/mL (<0.50)
[2025-03-15 23:04] LABS: NT Pro B Type NatriureticPept* 404 pg/mL (See Note)
[2025-03-15 23:07] VITALS: O2SAT 91
[2025-03-15 23:18] VITALS: BP 126/91; PULSE 96; RESP 24; TEMP 37.7; O2SAT 91
[2025-03-15] MEDS: AZITHROMYCIN 500 MG in 0.9 % SODIUM CHLORIDE 250 ml 250 ML 255 MG IVPB (23:25)
--- NOTE | 2025-03-15 23:34 | CRLHL7_ITS ---
For Patients: As a result of the Century Cures Act, medical imaging exams and procedure reports are released immediately into your electronic medical record. You may view this report before your referring provider. If you have questions, please contact your health care provider. INDICATION: Shortness of breath, COPD. TECHNIQUE: Chest 2 views. COMPARISON: None. FINDINGS: Cardiovascular and mediastinum: Normal heart size. Atherosclerotic thoracic aorta. Lungs and pleural spaces: Hyperexpanded lungs with flattening of the hemidiaphragms. Increased bibasilar lung markings with small airspace opacity within the anterior left lower lobe. No pleural effusion or pneumothorax. Mild biapical pleural-parenchymal scarring. Bones and soft tissues: Unremarkable for age. IMPRESSION: Increased bibasilar lung markings in the setting of emphysema and likely represents scarring; however, there could be a small focus of pneumonia within the anterior left lower lobe. Dictated by Elvin Espino MD @ 03/16/2025 12:54:01 AM (Electronically Signed)
--- NOTE | 2025-03-15 23:37 | ED_ITS ---
HPI - General Adult General Chief complaint: Shortness of Breath/Dyspnea Stated complaint: cant breath Time Seen by Provider: 03/15/25 21:36 Source: patient and family Mode of arrival: ambulatory Limitations: no limitations History of Present Illness HPI narrative: 85-year-old female with history of underlying COPD referred to the ED from urgent care with shortness of breath and cough. Patient symptomatic for 2 and half days, worsening in nature. Have continue to use her home Spiriva and Advair with no significant improvement in symptoms. Did try using a albuterol neb at about 3:00 p.m. at home prior to presenting to urgent care. Was given what sounds like a DuoNeb there and referred to the ED. O2 sats in triage noted to be 84% on ambulation. Patient has been using Mucinex and Tylenol with no significant improvement in symptoms. She has a notable history of prior smoking, quitting 11 years ago but does have underlying COPD. Has had to be hospitalized for exacerbations before but it does not sound as though she has required intubation. No history of coronary artery disease or congestive heart failure. No exposures to influenza. No pertinent travel. No recent changes in medication. Denies chest pain. No GI changes. No nausea or vomiting. Appetite has still been good. No swelling in extremities. No history of DVT or PE. Not anticoagulated. No history of arrhythmias. 88% O2 sat at rest, not typically on home oxygen Past medical history notable for COPD, lives independently. She also has hypertension, hypothyroidism. Allergies none known. ROS notable for the respiratory symptoms and some mild URI symptoms as well, otherwise denies times 12 systems. Related Data Home Medications ?Medication ?Instructions ?Recorded ?Confirmed albuterol sulfate 90 mcg/actuation 1 puff inhalation P RN 01/22/22 aerosol inhaler cyanocobalamin (vitamin B-12) 1,000 mcg PO DAILY 01/2203/15/25 1,000 mcg tablet fluticasone 250 mcg-salmeterol 50 1 inh inhalation TADEO LY 01/22/22 03/15/25 mcg/dose blistr powdr for inhalation ipratropium 0.5 mg-albuterol 3 mg 3 ml inhalation PRN 01/22/22 (2.5 mg base)/3 mL nebulization soln levothyroxine 75 mcg tablet 75 mcg PO DAILY 01/22/22 1 05/16/24 metoprolol succinate 100 mg 100 mg PO DAILY 01/22/22 1 05/16/24 tablet,extended release 24 hr omeprazole 20 mg capsule,delayed 20 mg PO PRN 01/22/22 release tiotropium bromide 18 mcg capsule 1 cap inhalation TADEO LY 01/22/22 03/15/25 with inhalation device (Spiriva with HandiHaler) Previous Rx's ?Medication ?Instructions ?Recorded doxycycline hyclate 100 mg capsule 100 mg PO BID 7 day s #14 caps 01/22/22 prednisone 20 mg tablet 20 mg PO BID #10 tabs Allergies Allergy/AdvReac Type Severity Reaction Status Date / Time No Known Drug Allergies Allergy Verified 03/15/25 20:02 [facility] Medical History COPD (chronic obstructive pulmonary disease) ?J44.9 - Chronic obstructive pulmonary disease, unspecified (ICD-10) Social History Smoking Status: Former smoker How often do you have a drink containing alcohol: never AUDIT-C Alcohol total score: 0 Non-prescribed substance use: denies use Exam Const: Vital Signs, click to edit/add: Vital Signs - 24 hr 03/15/25 19:56 03/15/25 19:56 03/15/25 21:37 Temperature 99.9 F H 100.2 F H Pulse Rate [Pulse Oximeter] 88 89 Respiratory Rate 22 26 H Blood Pressure [Ri ght Upper Arm] 181/76 H 185/78 H Pulse Oximetry 88 84 L 91 Oxygen Delivery Me thod Room Air Room Air Room Air 03/15/25 22:39 03/15/25 23:07 03/15/25 23:18 Temperature 99.8 F H Pulse Rate [Pulse Oximeter] 90 96 Respiratory Rate 20 24 Blood Pressure [Ri ght Upper Arm] 143/70 H 126/91 H Pulse Oximetry 91 91 Oxygen Delivery Me thod Room Air Room Air Documenting provider has reviewed patient's vital signs: yes Common normals: no apparent distress and alert General appearance: well kempt Other: Friendly and cooperative, excellent mentation for age. Appears well nourished, well hydrated. HENMT: Common normals: normocephalic, moist oral mucous membranes and oropharynx normal Head and scalp: normocephalic Face and sinus: normal facial exam Mouth: oral and palatal mucosa normal Throat: posterior oropharynx normal Eye: Common normals: conjunctivae normal General eye: normal appearance of both eyes Conjunctiva: conjunctiva(e) normal Neck & C-Spine: Common normals: full ROM and no lymphadenopathy General: normal visual inspection Resp: Effort & inspection: able to speak in complete sentences Other: Coarse expiratory wheeze. Prolongation of expiration 4-1 ratio. Mildly increased work of breathing. Crackles left base slightly more than right base. Cardio: Common normals: regular rate, regular rhythm, S1 normal heart sound, S2 normal heart sound and no murmurs Rate: regular rate Rhythm: regular rhythm Heart sounds: S1 normal and S2 normal GI: Common normals: Normal to inspection, nondistended, normoactive bowel sounds present, soft to palpation, non-tender, no hepatosplenomegaly and no masses Palpation: soft and no hepatosplenomegaly Extremity: Common normals: normal to inspection and no pedal edema Neuro: Common normals: moves all extremities Sensorium/orientation: alert Speech: speech normal Psych: Appearance: well kempt Attitude: engaged Mood and affect: euthymic mood Attention/concentration: attention grossly intact Memory/cognition: memory grossly intact Insight: insight good Judgement: judgment good Skin: Common normals: no rashes or lesions noted General skin exam: no rashes or lesions noted Course Course ED Course: 85-year-old female presenting with cough, respiratory distress and acute hypoxic respiratory failure to the emergency room. History of underlying COPD. Concern for pneumonia, possible pulmonary embolism, CHF, acute coronary syndrome, upper respiratory infection, bronchitis, amongst others. Will obtain chest x-ray, EKG, typical pulmonary and cardiac labs. Will start supplemental oxygen, give DuoNeb. Start Rocephin and azithromycin and give 60 of IV Solu-Medrol. Based on hypoxia, suspect that she will require hospitalization. Reevaluation(s) Reevaluation #1: Update: We had quite a bit of delaying getting imaging mainly because of the high acuity of other trauma patients in the ED but eventually we did get all of her workup back she is moving air a little bit better after the steroids and neb of had a couple hours to perk a late. She still dropping her sats with any minimal exertion but is now able to maintain 90% at rest. Labs are reviewed she is dehydrated is very concentrated urine, ketones and hyponatremia. Her CRP and white counter elevated. X-ray does suggest a left-sided pneumonia which does clinically fit with what I was hearing on her exam. We discussed plan of care. She has already been given Rocephin, azithromycin, neb and steroid. Will admit inpatient for management of her COPD, pneumonia and respiratory failure and hyponatremia. hospitalist team accepts. Vital Signs Vital signs: Initial Vital Signs Temperature 99.9 F H 03/15/25 19:56 Temperature Source Temporal Artery Scan 03/15/25 19:56 Pulse Rate 88 03/15/25 19:56 Respiratory Rate 22 03/15/25 19:56 Blood Pressure 181/76 H 03/15/25 19:56 Blood Pressure Mean 111 H 03/15/25 19:56 Blood Pressure Position Sitting 03/15/25 19:56 Pulse Oximetry 88 03/15/25 19:56 Oxygen Delivery Method Room Air 03/15/25 19:56 Vital Signs Temperature 99.9 F H 03/15/25 19:56 Pulse Rate 88 03/15/25 19:56 Respiratory Rate 22 03/15/25 19:56 Blood Pressure 181/76 H 03/15/25 19:56 Pulse Oximetry 88 03/15/25 19:56 Oxygen Delivery Method Room Air 03/15/25 19:56 Temperature 99.8 F H 03/15/25 23:18 Pulse Rate 96 03/15/25 23:18 Respiratory Rate 24 03/15/25 23:18 Blood Pressure 126/91 H 03/15/25 23:18 Pulse Oximetry 91 03/15/25 23:18 Oxygen Delivery Method Room Air 03/15/25 23:18 Medications Administered Medications: Discontinued Medications Generic Name Dose Route Start Last Admin Trade Name Freq PRN Reason Stop Dose Admin Albuterol/Ipratropium 1 neb 03/15/25 21:43 03/15/25 22:15 Iprat-Albut 0.5-2.5 Mg/3 Ml Neb IH 03/15/25 21:44 1 neb ONCE ONE Administration Azithromycin 500 mg/ Sodium 255 mls @ 255 mls/hr 03/15/25 21:43 03/15/25 23:25 Chloride IVPB 03/15/25 22:42 255 mls/hr ONCE ONE Administration Ceftriaxone Sodium 1 gm/ 100 mls @ 200 mls/hr 03/15/25 21:43 03/15/25 23:07 Sodium Chloride IVPB 03/15/25 22:12 Infused ONCE ONE Infusion Methylprednisolone Sodium Succinate 60 mg 03/15/25 21:43 03/15/25 22:20 Methylprednisolone Sod Succ 40 Mg/Ml IVP 03/15/25 21:44 60 mg ONCE ONE Administration Medical Decision Making Lab Data Lab results reviewed: Yes I reviewed the patient's lab results Lab results narrative: Mild leukocytosis with elevated absolute neutrophil count. Blood gases show hypoxemia but no significant acidosis or hypercapnia. Creatinine stable. No significant elevation of liver enzymes but she does have significant hyponatremia, not typical for her. Viral swabs are negative. Urinalysis shows dehydration with over concentrated urine and 3+ ketones. Labs: Lab Results 03/15/25 03/15/25 03/15/25 Range/Units 20:03 21:43 22:05 WBC 13.23 H (4.50-11.00) K/uL RBC 5.18 (4.00-5.20) m/uL Hgb 13.6 (12.0-16.0) gm/dL Hct 41.8 (33.0-51.0) % MCV 81 (80-100) fL MCH 26 (26-34) pg MCHC 33 (32-36) gm/dL RDW Coeff of Ministerio 14.1 (11.5-15.5) % Plt Count 311 (140-440) K/uL Neut % (Auto) 86.9 H (42.0-72.0) % Lymph % (Auto) 3.6 L (20-44) % [place] % (Auto) 8.8 (0.0-11.0) % Eos % (Auto) 0.1 (0.0-7.0) % Baso % (Auto) 0.3 (0.0-3.0) % Neut # (Auto) 11.50 H (1.7-7.0) K/uL Lymph # (Auto) 0.50 L (0.90-2.90) K/uL [place] # (Auto) 1.20 H (0.00-0.90) K/UL Eos # (Auto) 0.00 (0.00-0.50) K/uL Baso # (Auto) 0.00 (0.00-0.30) K/uL Abs Immat Gran (auto) 0.00 (0.00-0.30) K/uL Imm/Tot Granulo (auto) 0.3 % Diff Slide Review Acceptable Review (Acceptable) VBG pH 7.409 (7.32-7.43) VBG pCO2 37 L (40-50) mmHG VBG pO2 48.4 H (25-47) mmHG VBG HCO3 23 (21-28) mmol/L Sodium 127 L (135-149) mmol/L Potassium 3.7 (3.6-5.1) mmol/L Chloride 96 (96-114) mmol/L Carbon Dioxide 21 (20-32) mmol/L Anion Gap 10 (7-15) mEq/L BUN 13 (7-30) mg/dL Creatinine 0.6 (0.5-1.5) mg/dL Estimated Creat Clear 37.10 Estimated GFR 87 ml/min Glucose 136 H (60-115) mg/dL Lactate 1.6 (0.5-1.9) mmol/L Calcium 8.5 (8.4-10.6) mg/dL Total Bilirubin 0.9 (0.1-1.5) mg/dL AST 32 (12-35) U/L ALT 20 (4-35) U/L Alkaline Phosphatase 117 (40-150) U/L POC Troponin I High Sensi 4.3 (2.9-13.0) pg/mL C-Reactive Protein 1.0 (0.5-1.0) mg/dL NT-Pro-B Natriuret Pep 404 H (See Note) pg/mL Total Protein 7.1 (6.0-8.3) g/dL Albumin 4.4 (3.3-5.0) g/dL Procalcitonin 0.07 (<0.50) ng/mL Urine Color (Yellow) Urine Appearance (Clear) Urine pH (5.0-8.5) Ur Specific [place] (1.000-1.030) Urine Protein (Negative) Urine Glucose (UA) (Negative) Urine Ketones (Negative) Urine Blood (Negative) Urine Nitrite (Negative) Urine Bilirubin (Negative) Urine Urobilinogen (0.2-1.0) Ur Leukocyte Esterase (Negative) Urine RBC (0-2) Urine WBC (0-5) Ur Squamous Epith Cells (None-Few) Urine Bacteria (None) SARS-CoV-2 (PCR) Negative SARS-CoV-2 (Negative) Influenza Type A (PCR) Negative PCR FLU A (Negative) Influenza Type B (PCR) Negative PCR FLU B (Negative) RSV (PCR) Negative PCR RSV (Negative) 03/16/25 Range/Units 00:29 WBC (4.50-11.00) K/uL RBC (4.00-5.20) m/uL Hgb (12.0-16.0) gm/dL Hct (33.0-51.0) % MCV (80-100) fL MCH (26-34) pg MCHC (32-36) gm/dL RDW Coeff of Ministerio (11.5-15.5) % Plt Count (140-440) K/uL Neut % (Auto) (42.0-72.0) % Lymph % (Auto) (20-44) % [place] % (Auto) (0.0-11.0) % Eos % (Auto) (0.0-7.0) % Baso % (Auto) (0.0-3.0) % Neut # (Auto) (1.7-7.0) K/uL Lymph # (Auto) (0.90-2.90) K/uL [place] # (Auto) (0.00-0.90) K/UL Eos # (Auto) (0.00-0.50) K/uL Baso # (Auto) (0.00-0.30) K/uL Abs Immat Gran (auto) (0.00-0.30) K/uL Imm/Tot Granulo (auto) % Diff Slide Review (Acceptable) VBG pH (7.32-7.43) VBG pCO2 (40-50) mmHG VBG pO2 (25-47) mmHG VBG HCO3 (21-28) mmol/L Sodium (135-149) mmol/L Potassium (3.6-5.1) mmol/L Chloride (96-114) mmol/L Carbon Dioxide (20-32) mmol/L Anion Gap (7-15) mEq/L BUN (7-30) mg/dL Creatinine (0.5-1.5) mg/dL Estimated Creat Clear Estimated GFR ml/min Glucose (60-115) mg/dL Lactate (0.5-1.9) mmol/L Calcium (8.4-10.6) mg/dL Total Bilirubin (0.1-1.5) mg/dL AST (12-35) U/L ALT (4-35) U/L Alkaline Phosphatase (40-150) U/L POC Troponin I High Sensi (2.9-13.0) pg/mL C-Reactive Protein (0.5-1.0) mg/dL NT-Pro-B Natriuret Pep (See Note) pg/mL Total Protein (6.0-8.3) g/dL Albumin (3.3-5.0) g/dL Procalcitonin (<0.50) ng/mL Urine Color Yellow (Yellow) Urine Appearance Clear (Clear) Urine pH 5.5 (5.0-8.5) Ur Specific [place] >= 1.030 (1.000-1.030) Urine Protein Trace A (Negative) Urine Glucose (UA) Negative (Negative) Urine Ketones 3+ A (Negative) Urine Blood Negative (Negative) Urine Nitrite Negative (Negative) Urine Bilirubin Negative (Negative) Urine Urobilinogen 0.2 (0.2-1.0) Ur Leukocyte Esterase Trace A (Negative) Urine RBC 2-5 A (0-2) Urine WBC 2-5 (0-5) Ur Squamous Epith Cells Few (None-Few) Urine Bacteria Few A (None) SARS-CoV-2 (PCR) (Negative) Influenza Type A (PCR) (Negative) Influenza Type B (PCR) (Negative) RSV (PCR) (Negative) Imaging Data Chest x-ray: Attestation: I have reviewed the pertinent imaging results. My impression: Nausea emphysema changes, I do not appreciate any obvious focal deficit that there certainly are increased markings on the left side. Radiologist's impression: IMPRESSION: Increased bibasilar lung markings in the setting of emphysema and likely represents scarring; however, there could be a small focus of pneumonia within the anterior left lower lobe. Dictated by Elvin Espino MD @ 03/16/2025 12:54:01 AM ECG Data Attestation: I personally reviewed and interpreted this ECG as follows: Prior ECG tracings: available for review (Unchanged from October of 2023.) Interpretation: Normal sinus rhythm with a few PVCs. Normal intervals and axis. No significant ST or T-wave abnormalities. Stable from last October. Discharge Plan Discharge Clinical Impression: Acute hypoxemic respiratory failure, Community acquired pneumonia, Acute hyponatremia, Weakness Patient Disposition: Admitted As Inpatient Condition: Stable Procedures ABG Interpretation ABG Results: 03/15/25 22:05 VBG pH 7.409 VBG pCO2 37 L VBG pO2 48.4 H VBG HCO3 23
[2025-03-16] VITALS (15 sets, daily range): BP systolic 132–159; BP diastolic 52–92; PULSE 71–91; RESP 18–22; TEMP 36.5–37.1; O2SAT 90–95; BMI 24.6
[2025-03-16 00:40] LABS: Appearance Urine Clear (Clear)
--- NOTE | 2025-03-16 02:58 | W.PM.TELEH&P ---
Telehealth- H&P: HPI History of Present Illness Time Seen by Provider: 02:30 Date Seen: 03/16/25 Chief complaint: cant breath Narrative: Cande Matias is seen as an Interactive Telehealth visit. Cande Matias is a 85 year old female Presented to the ED due to complaint of worsening shortness of breath Patient reported that she was diagnosed with breast cancer and had resection and had another mammogram in May that was normal with no lymph node metastasis. Patient reports that she does have follow-up. Patient reported that she lives at home and still is having some worsening shortness of breath progressively worsening has been using her inhalers went to urgent care to be further eval it was noted her oxygenation was in the 80% and thus was sent here to be further evaluated. Patient denies having any renovations denies smoking drinking or new exposures in the house. Patient reports compliance with medications. Patient adamant denied having any chest pain abdominal pain fever chills or dysuria.Patient denied history of DVT or PE. CODE STATUS was discussed in detail and the patient would want everything full scope of medicine and treatment clinic BiPAP intubation CPR full code Review of Systems Narrative: A complete review of systems was performed. Pertinent positives and negatives are in the HPI. [facility] Medical History COPD (chronic obstructive pulmonary disease) ?J44.9 - Chronic obstructive pulmonary disease, unspecified (ICD-10) Social History What is your current living situation?: I presently have a place to live Problems where you live: no known problems In the past 12 months, utilities in danger of being shut off: no In past 12 months, lack of transportation kept you from medical appts, meetings, work, or getting things needed for daily living: no In the past 12 mos, have been you worried that your food would run out before you had money to buy more?: never true In the past 12 mos, the food you bought just didn't last and you didn't have money to buy more?: never true Highest level of school completed/degree received: high school graduate Smoking Status: Former smoker What tobacco products do you use: cigarettes Years smoked: 50 Smoking quit date/years: <= 15 years ago Do you use any of these nicotine containing products: None Second hand tobacco smoke exposure: No How often do you have a drink containing alcohol: never How often do you have six or more drinks on one occasion: Never AUDIT-C Alcohol total score: 0 Non-prescribed substance use: denies use Caffeine: Yes (1 cup of coffee) How often does anyone, including family, friends and others, physically hurt you: never How often does anyone, including family, friends and others, insult or talk down to you: never How often does anyone, including family, friends and others, threaten you with harm: never How often does anyone, including family, friends and others, scream or curse at you: never service: No Meds Home Medications and Allergies Home Medications ?Medication ?Instructions ?Recorded ?Confirmed ?Type albuterol sulfate 90 mcg/actuation 1 puff inhalation PRN 01/22/22 History aerosol inhaler cyanocobalamin (vitamin B-12) 1,000 mcg PO DAILY 01/22/22 03/15/25 History 1,000 mcg tablet doxycycline hyclate 100 mg capsule 100 mg PO BID 7 days #14 caps 01/22/22 03/15/25 Rx fluticasone 250 mcg-salmeterol 50 1 inh inhalation DAILY 01/22/22 03/15/25 History mcg/dose blistr powdr for inhalation ipratropium 0.5 mg-albuterol 3 mg 3 ml inhalation PRN 01/22/22 History (2.5 mg base)/3 mL nebulization soln levothyroxine 75 mcg tablet 75 mcg PO DAILY 01/22/22 03/15/25 History metoprolol succinate 100 mg 100 mg PO DAILY 01/22/22 03/15/25 History tablet,extended release 24 hr omeprazole 20 mg capsule,delayed 20 mg PO PRN 01/22/22 History release prednisone 20 mg tablet 20 mg PO BID #10 tabs 01/22/22 03/15/25 Rx tiotropium bromide 18 mcg capsule 1 cap inhalation DAILY 01/22/22 03/15/25 History with inhalation device (Spiriva with HandiHaler) Allergies Allergy/AdvReac Type Severity Reaction Status Date / Time No Known Drug Allergies Allergy Verified 03/15/25 20:02 Exam Narrative Exam Narrative: GEN: awake, alert, oriented, NAD HEENT: NC/AT, EOMI Neck: supple without lymphadenopathy according to nurse assisted exam CVS: +s1/s2, RRR without murmurs/rubs/gallops LUNGS:wheezing ABD: soft, NT/ND, +BS, no rebound or guarding or peritoneal signs on nurse assisted exam EXT: warm, well perfused, no edema NEURO: no focal deficits, moves all 4 extremities, answers questions appropriately PSYCH: affect normal SKIN: left leg edema Const Vital Signs, click to edit/add: Vital Signs - 24 hr 03/15/25 19:56 03/15/25 19:56 03/15/25 21:37 Temperature 99.9 F H 100.2 F H Pulse Rate [Left Pulse Oximeter] Pulse Rate [Pulse Oximeter] 88 89 Respiratory Rate 22 26 H Blood Pressure [Right Arm] Blood Pressure [Right Upper Arm] 181/76 H 185/78 H Pulse Oximetry 88 84 L 91 Oxygen Delivery Method Room Air Room Air Room Air 03/15/25 22:39 03/15/25 23:07 03/15/25 23:18 Temperature 99.8 F H Pulse Rate [Left Pulse Oximeter] Pulse Rate [Pulse Oximeter] 90 96 Respiratory Rate 20 24 Blood Pressure [Right Arm] Blood Pressure [Right Upper Arm] 143/70 H 126/91 H Pulse Oximetry 91 91 Oxygen Delivery Method Room Air Room Air 03/16/25 02:14 Temperature 97.7 F Pulse Rate [Left Pulse Oximeter] 89 Pulse Rate [Pulse Oximeter] Respiratory Rate 22 Blood Pressure [Right Arm] 159/92 H Blood Pressure [Right Upper Arm] Pulse Oximetry 91 Oxygen Delivery Method Room Air Hospitalist - H&P: Result Labs Labs: Short CBC 03/15/25 Range/Units 22:05 WBC 13.23 H (4.50-11.00) K/uL Hgb 13.6 (12.0-16.0) gm/dL Hct 41.8 (33.0-51.0) % Plt Count 311 (140-440) K/uL BMP 03/15/25 22:05 Sodium 127 L Potassium 3.7 Chloride 96 Carbon Dioxide 21 BUN 13 Creatinine 0.6 Glucose 136 H Calcium 8.5 Liver Function 03/15/25 Range/Units 22:05 Total Bilirubin 0.9 (0.1-1.5) mg/dL AST 32 (12-35) U/L ALT 20 (4-35) U/L Alkaline Phosphatase 117 (40-150) U/L Albumin 4.4 (3.3-5.0) g/dL Urine 03/16/25 Range/Units 00:29 Urine Color Yellow (Yellow) Urine Appearance Clear (Clear) Urine pH 5.5 (5.0-8.5) Ur Specific [place] >= 1.030 (1.000-1.030) Urine Protein Trace A (Negative) Urine Glucose (UA) Negative (Negative) Assessment and Plan Assessment and plan (1) Community acquired pneumonia: Status: Acute (2) Acute hyponatremia: Status: Acute (3) Acute hypoxemic respiratory failure: Status: Acute (4) Weakness: Status: Acute (5) Leg edema, left: Status: Acute (6) Acute exacerbation of chronic obstructive pulmonary disease: Status: Inactive Plan Assessment and plan: Acute hypoxic respiratory failure: Sinus following will attempt another nasal cannula Etiology including COPD and pneumonia Wean oxygen as tolerated Community-acquired pneumonia: Patient denied recent antibiotics MRSA, strep antigen, Legionella pending COVID flu negative IV Doxy and Rocephin Acute COPD exacerbation: Prednisone DuoNebs on antibiotic as above Acute hyponatremia, Gentle IVF Left leg edema: ultrasound to check for DVT Hypertension: Continue medication Hyperlipidemia: Continue medication GERD: Continue medication Breast cancer: Has outpatient follow-up Total Time Spent Total Time Spent: Telehealth Visit: Today's history and physical is via interactive telehealth visit by . The patient is located ... . Physician is located at [facility]. Nursing staff assisted in the patient's exam. Visit being done today meets criteria for a telehealth visit and the patient or patient's guardian/parent is aware the visit is a telehealth visit. 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 Patient is located at [facility].? Provider is located at [facility].? Nursing staff assisted with the patient's exam. The visit being done today meets criteria for a telehealth visit and the patient or patient?s parent/guardian is aware the visit is a telehealth visit.
[2025-03-16] MEDS: IPRAT-ALBUT 0.5-2.5 MG/3 ML NEB 1 NEB IH ×4 (03:42→20:33)
[2025-03-16] MEDS: DOXYCYCLINE HYCLATE 100 MG in 0.9 % SODIUM CHLORIDE Mini-bag 100 ML IVPB ×2 (04:07→14:52)
[2025-03-16] MEDS: OMEPRAZOLE 20 MG CAPSULE DR 40 MG PO (07:07)
--- NOTE | 2025-03-16 07:13 | CRLHL7_ITS ---
For Patients: As a result of the Century Cures Act, medical imaging exams and procedure reports are released immediately into your electronic medical record. You may view this report before your referring provider. If you have questions, please contact your health care provider. INDICATION: Left leg edema TECHNIQUE: Ultrasound venous duplex lower left extremity. Compression venous exam was performed using ruby-scale, color Doppler, and spectral Doppler analysis. COMPARISON: None. FINDINGS: Deep veins: Sonographic imaging demonstrates the left common femoral, deep femoral, superficial femoral, popliteal, posterior tibial and the contralateral right common femoral veins to be fully compressible with normal color Doppler blood flow. Superficial veins: Greater saphenous vein is fully compressible. No popliteal cyst. IMPRESSION: Normal left lower extremity venous ultrasound, no sign of deep venous thrombosis. Dictated by Gisela Chadwick MD @ 03/16/2025 8:19:27 AM (Electronically Signed)
--- NOTE | 2025-03-16 07:35 | PC.NURSE ---
End of shift Note 247 Patient was very pleasant and cooperative throughout shift. VSS. Afebrile. Patient seems to be a little hard of hearing. Assist 1 with gait belt. Patient uses call light appropriately. Call light within reach. Tele doc ordered EKG upon admission, but an EKG was performed at the ED prior to admission into [facility] floor. MD kovacs
[2025-03-16 08:15] LABS: Ionized Calcium* 1.05 mmol/L (1.11-1.30); Lactate* 1.3 mmol/L (0.5-1.9)
[2025-03-16 08:17] LABS: Hematocrit* 38.8 % (33.0-51.0); Hemoglobin* 12.7 gm/dL (12.0-16.0); Immature Granulocytes Abs Auto 0.03 K/uL (0.00-0.30); Immature Granulocytes Pct Auto 0.3 %; Mean Corpuscular HGB Conc 33 gm/dL (32-36); Mean Corpuscular Hemoglobin 26 pg (26-34); Mean Corpuscular Volume 80 fL (80-100); RDW Coefficient of Variation % 14.1 % (11.5-15.5); Red Blood Count* 4.83 m/uL (4.00-5.20); White Blood Count* 9.67 K/uL (4.50-11.00)
[2025-03-16 08:22] LABS: Lymphocytes Absolute Auto 0.30 K/uL (0.90-2.90)
[2025-03-16 08:23] LABS: Slide Review Reflex No
[2025-03-16 08:38] LABS: Albumin* 3.9 g/dL (3.3-5.0); Chloride* 99 mmol/L (96-114); Potassium* 3.7 mmol/L (3.6-5.1); Sodium* 128 mmol/L (135-149)
[2025-03-16 08:41] LABS: Anion Gap 9 mEq/L (7-15); Blood Urea Nitrogen* 12 mg/dL (7-30); Calcium* 8.2 mg/dL (8.4-10.6); Carbon Dioxide* 20 mmol/L (20-32); Creatinine* 0.5 mg/dL (0.5-1.5); Est. Creatinine Clearance* 37.10; Estimated Glomerular Filt Rate 91 ml/min; Glucose* 159 mg/dL (60-115)
[2025-03-16] MEDS: ENOXAPARIN 30 MG/0.3ML INJ SUBCUT (08:58)
[2025-03-16] MEDS: LEVOTHYROXINE 75 MCG TABLET PO (08:58)
[2025-03-16] MEDS: METOPROLOL SUCCINATE (XL) 100 MG TAB PO (08:58)
[2025-03-16] MEDS: SODIUM CHLORIDE 0.9 % (FLUSH) 10 ML SYRINGE 5 ML IVF ×2 (09:50→20:34)
[2025-03-16] MEDS: cefTRIAXone 1 GM in 0.9 % SODIUM CHLORIDE Mini-bag 100 ML IVPB (09:55)
--- NOTE | 2025-03-16 10:45 | RESP.RT ---
Patient sittig up in bed, On NC 1 Lpm , SaO2 93%, breathing regular/easy, shallow. BBS with LLL diminished, both bases diminished, with fine/coarse crackles. PEP with Aerobika, patient demonstrated good exhalation with good chest shake, and forceful productive cough for creme/ruby thick secretions.
[2025-03-16] MEDS: CALCIUM GLUC 1,000MG/50 ML 1,000 MG/50 ML BAG 100 MG IVPB (11:25)
[2025-03-16 12:17] LABS: S pneumo Ag Urine S. pneumo Negative (Negative)
--- NOTE | 2025-03-16 13:34 | CRLHL7_ITS ---
For Patients: As a result of the Century Cures Act, medical imaging exams and procedure reports are released immediately into your electronic medical record. You may view this report before your referring provider. If you have questions, please contact your health care provider. INDICATION: Hypoxia, abnormal chest x-ray TECHNIQUE: CT chest PE was acquired with 95 cc Isovue 370. IV contrast. COMPARISON: Chest radiograph 03/15/2025, CT chest 10/20/2023 FINDINGS: Thyroid: Atrophic thyroid. Heart and vasculature: Contrast opacification of the pulmonary arterial tree is adequate. No sign of pulmonary embolism. Heart size is normal. Mild coronary artery calcifications. Thoracic aorta and pulmonary artery are normal in caliber. Atherosclerosis of the aorta. Lungs and pleura: Mild bronchial wall thickening and mucous plugging in the lower lobes. Stable 0.6 centimeter nodule along the right major fissure (). Mild upper lobe predominant centrilobular and paraseptal emphysema. Bibasilar atelectasis/scarring. No pleural effusions, pleural thickening, or pneumothorax. Lymph nodes/mediastinum: Similar mild rightward deviation of the upper trachea related to the left superior mediastinal cystic lesion measuring 4.3 x 4.7 x 5.4 centimeters (4/34, 7/113), unchanged since 2023. Chest wall: Sequela of left breast lumpectomy. Thickening of the skin of the left breast. Scarring in the left axilla. Upper abdomen: Small hiatal hernia. Cholelithiasis. Bones: Unremarkable for age. IMPRESSION: No pulmonary embolism. Mild bronchial wall thickening and mucous plugging in the lower lobes, which may be infectious or inflammatory. Similar cystic lesion in the left superior mediastinum, which is unchanged since 2023 and may be of thyroid origin. Stable 0.6 centimeter nodule along the right major fissure, which may represent an intrafissural lymph node, and is unchanged since 2023. If the patient has a history of malignancy, this remains indeterminate and can be monitored on future follow-up exams. Please note that all CT scans at this facility use dose modulation, iterative reconstruction, and/or weight-based dosing when appropriate to reduce radiation dose to as low as reasonably achievable. Dictated by Wanda Valle MD @ 03/16/2025 2:40:32 PM (Electronically Signed)
--- NOTE | 2025-03-16 15:04 | PM.IMPN1 ---
Assessment and Plan Assessment and plan (1) Acute hypoxemic respiratory failure: Problem comment: -community-acquired pneumonia plus likely COPD exacerbation -Rocephin, doxy, prednisone -CTA pending -close monitoring -supplemental O2 to keep sats greater than 88% Status: Acute (2) Acute exacerbation of chronic obstructive pulmonary disease (COPD): Problem comment: -as above Status: Acute (3) Community acquired pneumonia: Problem comment: -as above Status: Acute (4) Acute hyponatremia: Problem comment: Monitoring, 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 Status: Acute (5) Leg edema, left: Problem comment: -ultrasound negative for DVT Status: Acute (6) Weakness: Problem comment: -related to above Status: Acute Subjective Date Seen: 03/16/25 Interval history: Daily Progress Note - Hospital Medicine Day #: 1, admitted earlier today CC: Community-acquired pneumonia, COPD exacerbation -admission data reviewed. -white blood cell count has decreased -sodium is up to 128. Ionized calcium 1.05. -CRP increased from 1.0-2.5 -on rocephin and doxy and prednisone CT No pulmonary embolism. Mild bronchial wall thickening and mucous plugging in the lower lobes, which may be infectious or inflammatory. Similar cystic lesion in the left superior mediastinum, which is unchanged since 2023 and may be of thyroid origin. Objective: alert. minimal oxygen but tired; feels week Vitals: see above Lungs: bilateral crackles; worse on the left Cardiac: S1S2. Disposition/Potential discharge - TBD Today I spent 50 minutes seeing the patient, reviewing Expanse and EPIC notes/diagnostics, discussing the care plan with our care time that includes social work, PT/OT, pharmacy, RT, mcc and documenting my impressions and plan in the medical record. Exam Const: Vital Signs, click to edit/add: Vital Signs - 24 hr 03/15/25 19:56 03/15/25 19:56 03/15/25 21:37 Temperature 99.9 F H 100.2 F H Pulse Rate Pulse Rate [Left P ulse Oximeter] Pulse Rate [Pulse Oximeter] 88 89 Respiratory Rate 22 26 H Blood Pressure [Ri ght Arm] Blood Pressure [Ri ght Upper Arm] 181/76 H 185/78 H Pulse Oximetry 88 84 L 91 Oxygen Delivery Me thod Room Air Room Air Room Air Oxygen Flow Rate 03/15/25 22:39 03/15/25 23:07 03/15/25 23:18 Temperature 99.8 F H Pulse Rate Pulse Rate [Left P ulse Oximeter] Pulse Rate [Pulse Oximeter] 90 96 Respiratory Rate 20 24 Blood Pressure [Ri ght Arm] Blood Pressure [Ri ght Upper Arm] 143/70 H 126/91 H Pulse Oximetry 91 91 Oxygen Delivery Me thod Room Air Room Air Oxygen Flow Rate 03/16/25 02:14 03/16/25 02:14 03/16/25 02:46 Temperature 97.7 F Pulse Rate 91 Pulse Rate [Left P ulse Oximeter] 89 Pulse Rate [Pulse Oximeter] Respiratory Rate 22 22 Blood Pressure [Ri ght Arm] 159/92 H Blood Pressure [Ri ght Upper Arm] Pulse Oximetry 91 91 Oxygen Delivery Me thod Room Air Room Air OxyMask Oxygen Flow Rate 1 03/16/25 02:49 03/16/25 03:00 03/16/25 06:59 Temperature 97.7 F Pulse Rate 80 Pulse Rate [Left P ulse Oximeter] 89 Pulse Rate [Pulse Oximeter] Respiratory Rate 22 Blood Pressure [Ri ght Arm] 159/92 H Blood Pressure [Ri ght Upper Arm] Pulse Oximetry 90 91 Oxygen Delivery Me thod OxyMask Oxygen Flow Rate 1 03/16/25 07:00 03/16/25 08:55 03/16/25 09:06 Temperature 98.8 F Pulse Rate Pulse Rate [Left P ulse Oximeter] 71 90 Pulse Rate [Pulse Oximeter] Respiratory Rate 20 20 20 Blood Pressure [Ri ght Arm] 157/88 H Blood Pressure [Ri ght Upper Arm] Pulse Oximetry 91 93 Oxygen Delivery Me thod Nasal Cannula Nasal Cannula Oxygen Flow Rate 1 1 03/16/25 11:12 03/16/25 14:39 Temperature 98.0 F 98.0 F Pulse Rate Pulse Rate [Left P ulse Oximeter] 71 72 Pulse Rate [Pulse Oximeter] Respiratory Rate 20 Blood Pressure [Ri ght Arm] 150/65 H 159/82 H Blood Pressure [Ri ght Upper Arm] Pulse Oximetry 94 95 Oxygen Delivery Me thod Nasal Cannula Nasal Cannula Oxygen Flow Rate 1 1 Labs Labs: Laboratory Results - last 24 hr 03/15/25 03/15/25 03/15/25 20:03 21:43 22:05 WBC 13.23 H RBC 5.18 Hgb 13.6 Hct 41.8 MCV 81 MCH 26 MCHC 33 RDW Coeff of Ministerio 14.1 Plt Count 311 Neut % (Auto) 86.9 H Lymph % (Auto) 3.6 L [place] % (Auto) 8.8 Eos % (Auto) 0.1 Baso % (Auto) 0.3 Neut # (Auto) 11.50 H Lymph # (Auto) 0.50 L [place] # (Auto) 1.20 H Eos # (Auto) 0.00 Baso # (Auto) 0.00 Abs Immat Gran (auto) 0.00 Imm/Tot Granulo (auto) 0.3 Diff Slide Review Acceptable Review VBG pH 7.409 VBG pCO2 37 L VBG pO2 48.4 H VBG HCO3 23 Sodium 127 L Potassium 3.7 Chloride 96 Carbon Dioxide 21 Anion Gap 10 BUN 13 Creatinine 0.6 Estimated Creat Clear 37.10 Estimated GFR 87 Glucose 136 H Lactate 1.6 Calcium 8.5 Ionized Calcium [place] Phosphorus Magnesium Total Bilirubin 0.9 AST 32 ALT 20 Alkaline Phosphatase 117 POC Troponin I High Sensi 4.3 C-Reactive Protein 1.0 NT-Pro-B Natriuret Pep 404 H Total Protein 7.1 Albumin 4.4 Procalcitonin 0.07 TSH Urine Color Urine Appearance Urine pH Ur Specific [place] Urine Protein Urine Glucose (UA) Urine Ketones Urine Blood Urine Nitrite Urine Bilirubin Urine Urobilinogen Ur Leukocyte Esterase Urine RBC Urine WBC Ur Squamous Epith Cells Urine Bacteria Urine L. pneumophilia Ag Urine Strep pneumoniae Ag SARS-CoV-2 (PCR) Negative SARS-CoV-2 Influenza Type A (PCR) Negative PCR FLU A Influenza Type B (PCR) Negative PCR FLU B RSV (PCR) Negative PCR RSV 03/16/25 03/16/25 03/16/25 00:29 08:00 11:20 WBC 9.67 RBC 4.83 Hgb 12.7 Hct 38.8 MCV 80 MCH 26 MCHC 33 RDW Coeff of Ministerio 14.1 Plt Count 280 Neut % (Auto) 95.2 H Lymph % (Auto) 3.4 L [place] % (Auto) 1.0 Eos % (Auto) 0.0 Baso % (Auto) 0.1 Neut # (Auto) 9.20 H Lymph # (Auto) 0.30 L [place] # (Auto) 0.10 Eos # (Auto) 0.00 Baso # (Auto) 0.01 Abs Immat Gran (auto) 0.03 Imm/Tot Granulo (auto) 0.3 Diff Slide Review VBG pH VBG pCO2 VBG pO2 VBG HCO3 Sodium 128 L Potassium 3.7 Chloride 99 Carbon Dioxide 20 Anion Gap 9 BUN 12 Creatinine 0.5 Estimated Creat Clear 37.10 Estimated GFR 91 Glucose 159 H Lactate 1.3 Calcium 8.2 L Ionized Calcium [place] 1.05 L Phosphorus 3.3 Magnesium 1.9 Total Bilirubin AST ALT Alkaline Phosphatase POC Troponin I High Sensi C-Reactive Protein 2.5 H NT-Pro-B Natriuret Pep Total Protein Albumin 3.9 Procalcitonin TSH 0.445 Urine Color Yellow Urine Appearance Clear Urine pH 5.5 Ur Specific [place] >= 1.030 Urine Protein Trace A Urine Glucose (UA) Negative Urine Ketones 3+ A Urine Blood Negative Urine Nitrite Negative Urine Bilirubin Negative Urine Urobilinogen 0.2 Ur Leukocyte Esterase Trace A Urine RBC 2-5 A Urine WBC 2-5 Ur Squamous Epith Cells Few Urine Bacteria Few A Urine L. pneumophilia Ag L. pneumo Negative Urine Strep pneumoniae Ag S. pneumo Negative SARS-CoV-2 (PCR) Influenza Type A (PCR) Influenza Type B (PCR) RSV (PCR)
--- NOTE | 2025-03-16 17:23 | PC.NURSE ---
shift note: Pt is AOx4. Afebrile. Pt tolerates up to BR w/ SBA; has episodes of incontinent urine w/ cough. RT in to see pt., education done for Aerobika use. Productive cough after IS, Aerobika, & neb use. Intermittent coughing; PRN throat lozenge given- See EMAR. Pt denies pain, SOB, & dizziness. 1L NC >90%. Family in to see pt bedside & supportive.
[2025-03-16] MEDS: BENZOCAINE/MENTHOL 1 EACH LOZENGE MUCOUS MEM (17:55)
[2025-03-16] MEDS: DOXYCYCLINE HYCLATE 100 MG PO (20:34)
[2025-03-17] VITALS (10 sets, daily range): BP systolic 119–166; BP diastolic 64–91; PULSE 68–79; RESP 18–20; TEMP 36.3–36.7; O2SAT 88–93
[2025-03-17] MEDS: IPRAT-ALBUT 0.5-2.5 MG/3 ML NEB 1 NEB IH ×4 (03:02→20:53)
[2025-03-17] MEDS: OMEPRAZOLE 20 MG CAPSULE DR 40 MG PO (06:41)
--- NOTE | 2025-03-17 06:46 | PC.NURSE ---
End of shift report [id number]: VSS. Afebrile.?Pt is on 0.5L?O2?via NC to maintain O2 sats above 88% per MD note.?Pt has SOB upon exertion. Pt ambulates SBA. Denies pain. Pt continues to have a productive intermittent cough,?aerobika?and incentive spirometer encouraged?and?utilized.?Pt?is on?1800 FR.?Bed?alarm on, call light within reach.?
[2025-03-17 06:52] LABS: HCO3 VBG 26 mmol/L (21-28); PCO2 VBG 40 mmHG (40-50); PO2 VBG 81.2 mmHG (25-47); pH VBG 7.424 (7.32-7.43)
[2025-03-17 06:59] LABS: Hematocrit* 40.0 % (33.0-51.0); Hemoglobin* 12.7 gm/dL (12.0-16.0); Immature Granulocytes Abs Auto 0.04 K/uL (0.00-0.30); Immature Granulocytes Pct Auto 0.4 %; Mean Corpuscular HGB Conc 32 gm/dL (32-36); Mean Corpuscular Hemoglobin 26 pg (26-34); Mean Corpuscular Volume 83 fL (80-100); RDW Coefficient of Variation % 14.4 % (11.5-15.5); Red Blood Count* 4.81 m/uL (4.00-5.20); White Blood Count* 9.43 K/uL (4.50-11.00)
[2025-03-17 07:06] LABS: Lymphocytes Absolute Auto 0.70 K/uL (0.90-2.90); Slide Review Reflex No
[2025-03-17 07:18] LABS: Albumin* 3.8 g/dL (3.3-5.0); Chloride* 104 mmol/L (96-114)
[2025-03-17 07:19] LABS: Potassium* 4.0 mmol/L (3.6-5.1); Sodium* 136 mmol/L (135-149)
[2025-03-17 07:21] LABS: Blood Urea Nitrogen* 14 mg/dL (7-30); Creatinine* 0.6 mg/dL (0.5-1.5); Est. Creatinine Clearance* 37.10; Estimated Glomerular Filt Rate 87 ml/min
[2025-03-17 07:22] LABS: Alanine Aminotransferase* 19 U/L (4-35); Alkaline Phosphatase* 94 U/L (40-150); Anion Gap 8 mEq/L (7-15); Aspartate Amino Transferase* 39 U/L (12-35); Bilirubin Total* 0.4 mg/dL (0.1-1.5); Calcium* 9.2 mg/dL (8.4-10.6); Carbon Dioxide* 24 mmol/L (20-32); Glucose* 88 mg/dL (60-115); Total Protein* 6.0 g/dL (6.0-8.3)
[2025-03-17] MEDS: LEVOTHYROXINE 75 MCG TABLET PO (08:01)
[2025-03-17] MEDS: cefTRIAXone 2 GM in 0.9 % SODIUM CHLORIDE Mini-bag 100 ML IVPB (08:01)
[2025-03-17] MEDS: METOPROLOL SUCCINATE (XL) 100 MG TAB PO (09:02)
[2025-03-17] MEDS: ENOXAPARIN 30 MG/0.3ML INJ SUBCUT (09:02)
[2025-03-17] MEDS: SODIUM CHLORIDE 0.9 % (FLUSH) 10 ML SYRINGE 5 ML IVF ×2 (09:02→20:55)
[2025-03-17] MEDS: AMLODIPINE 5 MG TABLET PO (09:02)
[2025-03-17] MEDS: DOXYCYCLINE HYCLATE 100 MG PO ×2 (09:02→20:55)
--- NOTE | 2025-03-17 09:41 | PM.IMPN1 ---
Assessment and Plan Assessment and plan (1) Acute hypoxemic respiratory failure: Problem comment: -acute bronchitis with mucus plugging plus likely COPD exacerbation -Rocephin, doxy, prednisone -CTA supports above diagnosis -supplemental O2 to keep sats greater than 88% -vibratory peep most effective in this situation Status: Acute (2) Acute bacterial bronchitis: Problem comment: -CT scan 03/16 consistent -doxycycline, oral plus IV ceftriaxone Status: Acute (3) Acute exacerbation of chronic obstructive pulmonary disease (COPD): Problem comment: -as above Status: Acute (4) Acute hyponatremia: Problem comment: Monitoring, 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 -03/17 resolved Status: Acute (5) Leg edema, left: Problem comment: -ultrasound negative for DVT Status: Acute (6) Weakness: Problem comment: -related to above Status: Acute Subjective Date Seen: 03/17/25 Interval history: Daily Progress Note - Hospital Medicine Day #: 2 CC: Acute bronchitis with mucus plugging, COPD exacerbation -admission data reviewed. -white blood cell count has decreased and is now normal -sodium, potassium are now normal. Renal function is baseline -CRP increased from 1.0-2.5, now is down to 1.4 -on rocephin and doxy and prednisone CT No pulmonary embolism. Mild bronchial wall thickening and mucous plugging in the lower lobes, which may be infectious or inflammatory. Similar cystic lesion in the left superior mediastinum, which is unchanged since 2023 and may be of thyroid origin. Objective: alert. minimal oxygen but tired; feels week Vitals: see above Lungs: bilateral crackles; worse on the left Cardiac: S1S2. Disposition/Potential discharge - Likely 03/18 to home. No is in the room next door with weakness. Today I spent 50 minutes seeing the patient, reviewing Expanse and EPIC notes/diagnostics, discussing the care plan with our care time that includes social work, PT/OT, pharmacy, RT, senior living and documenting my impressions and plan in the medical record. Exam Const: Vital Signs, click to edit/add: Vital Signs - 24 hr 03/16/25 11:12 03/16/25 14:39 03/16/25 15:00 Temperature 98.0 F 98.0 F Pulse Rate Pulse Rate [Left P ulse Oximeter] 71 72 72 Respiratory Rate 20 20 Blood Pressure [Ri ght Arm] 150/65 H 159/82 H Pulse Oximetry 94 95 Oxygen Delivery Me thod Nasal Cannula Nasal Cannula Oxygen Flow Rate 1 1 03/16/25 19:00 03/16/25 19:44 03/16/25 22:02 Temperature 98.2 F Pulse Rate 73 Pulse Rate [Left P ulse Oximeter] 72 72 Respiratory Rate 18 18 Blood Pressure [Ri ght Arm] 132/52 L Pulse Oximetry 91 Oxygen Delivery Me thod Nasal Cannula Oxygen Flow Rate 1 03/16/25 23:00 03/17/25 03:00 03/17/25 04:39 Temperature 97.8 F 97.3 F L Pulse Rate Pulse Rate [Left P ulse Oximeter] 79 77 Respiratory Rate 20 20 Blood Pressure [Nh ght Arm] 148/61 H 166/64 H Pulse Oximetry 92 93 93 Oxygen Delivery Me thod Nasal Cannula Nasal Cannula Oxygen Flow Rate 0.5 0.5 03/17/25 07:00 03/17/25 07:00 03/17/25 07:00 Temperature 97.8 F Pulse Rate 71 Pulse Rate [Left P ulse Oximeter] 74 74 Respiratory Rate 20 20 Blood Pressure [Ri ght Arm] 138/66 Pulse Oximetry 91 Oxygen Delivery Me thod Nasal Cannula Oxygen Flow Rate 0.5 Labs Labs: Laboratory Results - last 24 hr 03/16/25 03/17/25 11:20 05:56 WBC 9.43 RBC 4.81 Hgb 12.7 Hct 40.0 MCV 83 MCH 26 MCHC 32 RDW Coeff of Ministerio 14.4 Plt Count 276 Neut % (Auto) 78.2 H Lymph % (Auto) 7.2 L [place] % (Auto) 14.0 H Eos % (Auto) 0.0 Baso % (Auto) 0.2 Neut # (Auto) 7.40 H Lymph # (Auto) 0.70 L [place] # (Auto) 1.30 H Eos # (Auto) 0.00 Baso # (Auto) 0.02 Abs Immat Gran (auto) 0.04 Imm/Tot Granulo (auto) 0.4 VBG pH 7.424 VBG pCO2 40 VBG pO2 81.2 H VBG HCO3 26 Sodium 136 Potassium 4.0 Chloride 104 Carbon Dioxide 24 Anion Gap 8 BUN 14 Creatinine 0.6 Estimated Creat Clear 37.10 Estimated GFR 87 Glucose 88 Calcium 9.2 Magnesium 2.3 Total Bilirubin 0.4 AST 39 H ALT 19 Alkaline Phosphatase 94 C-Reactive Protein 1.4 H Total Protein 6.0 Albumin 3.8 Urine L. pneumophilia Ag L. pneumo Negative Urine Strep pneumoniae Ag S. pneumo Negative
--- NOTE | 2025-03-17 14:40 | PC.NURSE ---
End of shift: VSS, tolerating a reg diet. Patient denies Pain, N/V/SOB. Patient on 0.5L NC sating 91%. Patient ambulating to BR SBA. Using Aerobika indep at bedside.
[2025-03-17] MEDS: ATORVASTATIN CALCIUM 10 MG TABLET PO (20:54)
[2025-03-18] VITALS (10 sets, daily range): BP systolic 129–189; BP diastolic 73–100; PULSE 65–73; RESP 20; TEMP 36.5–36.8; O2SAT 90–93
[2025-03-18] MEDS: IPRAT-ALBUT 0.5-2.5 MG/3 ML NEB 1 NEB IH ×4 (03:08→20:20)
[2025-03-18] MEDS: OMEPRAZOLE 20 MG CAPSULE DR 40 MG PO (05:23)
--- NOTE | 2025-03-18 06:04 | PC.NURSE ---
End of shift report : VSS. Afebrile.?Pt was on RA?when?awake.?Pt?noted to?desat?to 86% when sleeping,?0.5L?O2?via NC?applied?to maintain O2 sats above 88%.?Pt has SOB upon exertion. Pt ambulates SBA. Denies pain. Pt continues to have a productive intermittent?cough,?aerobika?encouraged?and?utilized.?Pt is resting in bed,?call light within reach.?
[2025-03-18 07:27] LABS: Hematocrit* 45.1 % (33.0-51.0); Hemoglobin* 14.3 gm/dL (12.0-16.0); Mean Corpuscular HGB Conc 32 gm/dL (32-36); Mean Corpuscular Hemoglobin 27 pg (26-34); Mean Corpuscular Volume 84 fL (80-100); Red Blood Count* 5.40 m/uL (4.00-5.20); White Blood Count* 9.04 K/uL (4.50-11.00)
[2025-03-18] MEDS: cefTRIAXone 2 GM in 0.9 % SODIUM CHLORIDE Mini-bag 100 ML IVPB (07:28)
[2025-03-18] MEDS: SODIUM CHLORIDE 0.9 % (FLUSH) 10 ML SYRINGE 5 ML IVF ×2 (07:28→20:19)
[2025-03-18 07:30] LABS: Albumin* 4.1 g/dL (3.3-5.0); Chloride* 102 mmol/L (96-114); Potassium* 3.4 mmol/L (3.6-5.1); Slide Review Reflex No; Sodium* 136 mmol/L (135-149)
[2025-03-18 07:33] LABS: Blood Urea Nitrogen* 15 mg/dL (7-30); Creatinine* 0.6 mg/dL (0.5-1.5); Est. Creatinine Clearance* 37.10; Estimated Glomerular Filt Rate 87 ml/min
[2025-03-18 07:34] LABS: Anion Gap 6 mEq/L (7-15); Calcium* 9.1 mg/dL (8.4-10.6); Carbon Dioxide* 28 mmol/L (20-32); Glucose* 84 mg/dL (60-115)
[2025-03-18] MEDS: METOPROLOL SUCCINATE (XL) 100 MG TAB PO (09:04)
[2025-03-18] MEDS: DOXYCYCLINE HYCLATE 100 MG PO ×2 (09:04→20:19)
[2025-03-18] MEDS: AMLODIPINE 5 MG TABLET PO (09:04)
[2025-03-18] MEDS: ENOXAPARIN 30 MG/0.3ML INJ SUBCUT (09:04)
[2025-03-18] MEDS: LEVOTHYROXINE 75 MCG TABLET PO (09:06)
--- NOTE | 2025-03-18 13:45 | P.IMPN_ITS ---
Assessment and Plan Assessment and plan (1) Acute hypoxemic respiratory failure: Problem comment: -acute bronchitis with mucus plugging plus likely COPD exacerbation -Rocephin, doxy, prednisone -CTA supports above diagnosis -supplemental O2 to keep sats greater than 88%, may require oxygen when ready for discharge from hospital -vibratory peep most effective in this situation -respiratory therapy to assess for home O2 needs Status: Acute (2) Acute exacerbation of chronic obstructive pulmonary disease (COPD): Problem comment: -as above Status: Acute (3) Acute bacterial bronchitis: Problem comment: -CT scan 03/16 consistent -doxycycline, oral plus IV ceftriaxone Status: Acute (4) Acute hyponatremia: Problem comment: Monitoring, 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 -03/17 imposed fluid restriction -03/18/2025 normalize serum sodium of 130 with fluid restriction, continue to monitor Status: Acute (5) Leg edema, left: Problem comment: -ultrasound negative for DVT Status: Acute (6) Weakness: Problem comment: -related to above -improving, but no longer able to care for her she used to Status: Acute Plan 1. Reviewed impression with patient, , son, 2 daughters 2. Answered her questions and their questions to their satisfaction 3. They are agreeable with above stated plans and recommendations Total Time Spent Total Time Spent: 30 minutes Subjective Date Seen: 03/18/25 Interval history: Admission history of present illness: ?85 year old female Presented to the ED due to complaint of worsening shortness of breath ?Patient reported that she was diagnosed with breast cancer and had resection and had another mammogram in May that was normal with no lymph node metastasis. Patient reports that she does have follow-up. Patient reported that she lives at home and still is having some worsening shortness of breath progressively worsening has been using her inhalers went to urgent care to be further eval it was noted her oxygenation was in the 80% and thus was sent here to be further evaluated. Patient denies having any renovations denies smoking drinking or new exposures in the house. Patient reports compliance with me dications. Patient adamant denied having any chest pain abdominal pain fever chills or dysuria.Patient denied history of DVT or PE. CODE STATUS was discussed in detail and the patient would want everything full scope of medicine and treatment clinic BiPAP intubation CPR full code. ? 03/18/2025, hospital day 4. For the most part her day yesterday went well. Early this morning around 3:00 a.m. she had another episode of sudden onset paroxysmal coughing, wheezing, dyspnea. With interventions and time her condition normalize. Condition has been relatively stable since. Continues to be anxious about this episode nonetheless. Even so patient is tolerating increased activities, requiring oxygen supplementation again now whereas for a brief period of time yesterday patient did not require use of oxygen supplementation when at rest. Exam Narrative: Exam Narrative: Examined patient in her hospital room. Friendly, articulate, cooperative. Somewhat hard of hearing. Appears comfortable. Continues to utilize oxygen supplementation at 0.5 liters/minute via nasal cannula to maintain resting oxygen saturation values greater than 88% with respirations of 20. Lungs clear to auscultation. Heart tones with regular rhythm. Abdomen benign. Trace edema pretibially bilaterally. No focal motor neurologic deficits Const: Vital Signs, click to edit/add: Vital Signs - 24 hr 03/17/25 15:00 03/17/25 15:00 03/17/25 15:00 Temperature 36.5 C Pulse Rate 69 Pulse Rate [Left P ulse Oximeter] 71 71 Respiratory Rate 20 20 Blood Pressure [Ri ght Arm] 133/71 Pulse Oximetry 88 Oxygen Delivery Me thod Room Air Oxygen Flow Rate 03/17/25 18:33 03/17/25 19:50 03/17/25 19:51 Temperature 36.5 C Pulse Rate Pulse Rate [Left P ulse Oximeter] 68 68 Respiratory Rate 20 20 Blood Pressure [Ri ght Arm] 119/91 H Pulse Oximetry 91 89 Oxygen Delivery Me thod Room Air Room Air Oxygen Flow Rate 03/17/25 21:30 03/17/25 23:00 03/18/25 03:00 Temperature 36.5 C 36.6 C Pulse Rate 69 Pulse Rate [Left P ulse Oximeter] 68 70 Respiratory Rate 20 20 Blood Pressure [Ri ght Arm] 125/79 145/75 H Pulse Oximetry 88 90 Oxygen Delivery Me thod Nasal Cannula Nasal Cannula Oxygen Flow Rate 0.5 0.5 03/18/25 04:00 03/18/25 07:37 03/18/25 08:11 Temperature 36.6 C Pulse Rate 71 Pulse Rate [Left P ulse Oximeter] 72 Respiratory Rate 20 Blood Pressure [Ri ght Arm] 129/73 Pulse Oximetry 90 93 Oxygen Delivery Me thod Nasal Cannula Oxygen Flow Rate 0.5 03/18/25 10:51 Temperature 36.6 C Pulse Rate Pulse Rate [Left P ulse Oximeter] 73 Respiratory Rate 20 Blood Pressure [Ri ght Arm] 135/74 Pulse Oximetry 90 Oxygen Delivery Me thod Nasal Cannula Oxygen Flow Rate 0.5 Labs Labs: Laboratory Results - last 24 hr 03/18/25 06:05 WBC 9.04 RBC 5.40 H Hgb 14.3 Hct 45.1 MCV 84 MCH 27 MCHC 32 Plt Count 235 Sodium 136 Potassium 3.4 L Chloride 102 Carbon Dioxide 28 Anion Gap 6 L BUN 15 Creatinine 0.6 Estimated Creat Clear 37.10 Estimated GFR 87 Glucose 84 Calcium 9.1 Phosphorus 2.3 L C-Reactive Protein 0.5 Albumin 4.1
[2025-03-18] MEDS: ATORVASTATIN CALCIUM 10 MG TABLET PO (20:19)
--- NOTE | 2025-03-18 22:54 | PC.NURSE ---
Patient remained on .5 liter O2 via NC throughout this shift, saturations between 88-91%. Patient used Aerobika and incentive spirometer as ordered and received nebulizers as ordered. exp wheezes heard bilat throughout. PIV on left and right patent.
[2025-03-19 03:00] VITALS: BP 188/81; PULSE 65; RESP 20; TEMP 36.6; O2SAT 93
[2025-03-19] MEDS: IPRAT-ALBUT 0.5-2.5 MG/3 ML NEB 1 NEB IH ×2 (03:18→10:08)
[2025-03-19 03:50] VITALS: O2SAT 93
[2025-03-19] MEDS: OMEPRAZOLE 20 MG CAPSULE DR 40 MG PO (06:10)
--- NOTE | 2025-03-19 06:19 | PC.NURSE ---
[id number]: Patient pleasant and cooperative with cares. Independent in room. Using Aerobika frequently. 0.5-1.0 Lt NC to maintain sats>88%. SOB w/activity but getting better. Afebrile. Eating and voiding.
[2025-03-19 07:25] VITALS: BP 154/74; PULSE 77; RESP 20; TEMP 36.7; O2SAT 89
[2025-03-19] MEDS: cefTRIAXone 2 GM in 0.9 % SODIUM CHLORIDE Mini-bag 100 ML IVPB (07:59)
[2025-03-19] MEDS: LEVOTHYROXINE 75 MCG TABLET PO (08:01)
[2025-03-19] MEDS: SODIUM CHLORIDE 0.9 % (FLUSH) 10 ML SYRINGE 5 ML IVF (08:40)
[2025-03-19 09:55] VITALS: O2SAT 90; O2SAT 91
--- NOTE | 2025-03-19 09:58 | RESP.RT ---
Patient currently on room air with saturation 88-91%. Patient walked for oxygen needs with ambulation/ activity. Patient maintained saturation of 90% with brief desaturation to 89% with quick recovery. No oxygen used at this time. Home oxygen not required at this time.
[2025-03-19] MEDS: AMLODIPINE 5 MG TABLET PO (10:08)
[2025-03-19] MEDS: METOPROLOL SUCCINATE (XL) 100 MG TAB PO (10:08)
[2025-03-19] MEDS: DOXYCYCLINE HYCLATE 100 MG PO (10:08)
[2025-03-19] MEDS: ENOXAPARIN 30 MG/0.3ML INJ SUBCUT (10:08)
--- NOTE | 2025-03-19 12:41 | PC.NURSE ---
Pt up in room independent. Able to maintain sats 89-91% on RA. IV DC'd, cath tip intact. DC instructions given verbally and in writing to pt. All questions answered. Pt DC'd @1230.
--- NOTE | 2025-03-19 16:18 | PC.SOCIAL ---
Discharge planing: Per MD order for home health PT/OT, sent order and information to [facility] and confirmed receipt. [facility] will follow up with first visit on 03/23/25.
--- NOTE | 2025-03-20 17:08 | P.DS_ITS ---
DS: Providers Provider Date Seen: 03/20/25 Date of admission: 03/16/25 01:57 Primary care physician: Mica Sellers DO Admitting Clinician: Gopal Garsia MD Consults: 03/16/25 02:46 Consult to Physical Therapy [CONS] Routine Comment: Reason(s) for PT Consult:: Evaluate and Treat Any Restrictions?:: No Restrictions Attending Physician on discharge: Joseph Ku MD Date of Discharge: 03/20/25 DS: Diagnosis Discharge Diagnosis (1) Acute exacerbation of chronic obstructive pulmonary disease (COPD): Status: Acute Problem details: -as above (2) Acute bacterial bronchitis: Status: Acute Problem details: -CT scan 03/16 consistent -doxycycline, oral plus IV ceftriaxone (3) Acute hypoxemic respiratory failure: Status: Acute Problem details: -acute bronchitis with mucus plugging plus likely COPD exacerbation -Rocephin, doxy, prednisone -CTA supports above diagnosis -supplemental O2 to keep sats greater than 88%, may require oxygen when ready for discharge from hospital -vibratory peep most effective in this situation -respiratory therapy to assess for home O2 needs (4) Acute hyponatremia: Status: Acute Problem details: Monitoring, 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 -03/17 imposed fluid restriction -03/18/2025 normalize serum sodium of 130 with fluid restriction, continue to monitor (5) Weakness: Status: Acute Problem details: -related to above -improving, but no longer able to care for her she used to (6) Leg edema, left: Status: Acute Problem details: -ultrasound negative for DVT DS: Summary Hospital Course Hospital Course: Admission history of present illness: ?85 year old female Presented to the ED due to complaint of worsening shortness of breath ?Patient reported that she was diagnosed with breast cancer and had resection and had another mammogram in May that was normal with no lymph node metastasis. Patient reports that she does have follow-up. Patient reported that she lives at home and still is having some worsening shortness of breath progressively worsening has been using her inhalers went to urgent care to be further eval it was noted her oxygenation was in the 80% and thus was sent here to be further evaluated. Patient denies having any renovations denies smoking drinking or new exposures in the house. Patient reports compliance with medications. Patient adamant denied having any chest pain abdominal pain fever chills or dysuria.Patient denied history of DVT or PE. CODE STATUS was discussed in detail and the patient would want everything full [facility] BiPAP intubation CPR full code. ? 03/18/2025, hospital day 4. For the most part her day yesterday went well. Early this morning around 3:00 a.m. she had another episode of sudden onset paroxysmal coughing, wheezing, dyspnea. With interventions and time her condition normalize. Condition has been relatively stable since. Continues to be anxious about this episode nonetheless. Even so patient is tolerating increased activities, requiring oxygen supplementation again now whereas for a brief period of time yesterday patient did not require use of oxygen supplementation when at rest. 03/19/2025, hospital day 5. No longer requiring oxygen supplementation at rest or with activity to maintain oxygen saturation values greater than 88%. Able to carry out all ADLs independently. Ready for discharge Time Spent with Patient Time attestation: Total time spent providing and/or coordinating discharge services: Exam Narrative: Exam Narrative: Examined patient in her hospital room. Friendly, articulate, cooperative. Somewhat hard of hearing. Appears comfortable. Lungs clear to auscultation. Heart tones with regular rhythm. Abdomen benign. Trace edema pretibially bilaterally. No focal motor neurologic deficits DS: Data Imaging CT scan - chest: Radiologist's impression: IMPRESSION: No pulmonary embolism. Mild bronchial wall thickening and mucous plugging in the lower lobes, which may be infectious or inflammatory. Similar cystic lesion in the left superior mediastinum, which is unchanged since 2023 and may be of thyroid origin. Stable 0.6 centimeter nodule along the right major fissure, which may represent an intrafissural lymph node, and is unchanged since 2023. If the patient has a history of malignancy, this remains indeterminate and can be monitored on future follow-up exams. Discharge Plan Discharge Disposition: Home, Self-Care Date of Admission: 03/16/25 01:57 Attending Provider on Discharge: Joseph Ku Primary Care Provider: Mica Sellers Condition: Stable Anticipated Discharge Date/Time: 03/19/25 11:55 Discharge Medications: New doxycycline hyclate 100 mg Tablet 100 mg PO BID 2 Days Qty: 4 0RF ipratropium-albuterol 0.5 mg-3 mg(2.5 mg base)/3 mL solution for nebulization 3 ml inhalation QID Qty: 180 1RF Rx Instructions: Take on scheduled basis 4 times daily and utilize the AEROBIKA device after each use Continued albuterol sulfate 90 mcg/actuation HFA aerosol inhaler 1 puff INHALATION QID PRN cyanocobalamin (vitamin B-12) 1,000 mcg tablet 1,000 mcg PO DAILY fluticasone propion-salmeterol 250-50 mcg/dose blister with device 1 inh INHALATION Q12H levothyroxine 75 mcg tablet 75 mcg PO DAILY metoprolol succinate 100 mg tablet extended release 24 hr 100 mg PO DAILY omeprazole 20 mg capsule,delayed release(DR/EC) 20 mg PO DAILY tiotropium bromide [Spiriva with HandiHaler] 18 mcg capsule, w/inhalation device 1 cap INHALATION DAILY amlodipine 5 mg tablet 5 mg PO DAILY atorvastatin 10 mg tablet 10 mg PO HS docusate sodium 100 mg capsule 100 mg PO BID PRN polyethylene glycol 3350 17 gram/dose powder 17 g PO DAILY Discontinued ipratropium-albuterol 0.5 mg-3 mg(2.5 mg base)/3 mL solution for nebulization 3 ml INHALATION QID PRN doxycycline hyclate 100 mg capsule 100 mg PO BID 7 Days Qty: 14 0RF Discharge Orders: Discharge Order (Routine); Ordered 03/19/25 Ordered By: Joseph Ku Patient Education: Doxycycline (By mouth), Ipratropium/Albuterol (By breathing), COPD (Chronic Obstructive Pulmonary Disease) (DC), Chronic Bronchitis (DC), Self-Care Measures with a Chronic Disease (DC), Weakness (DC), Chronic Lung Disease and Infection Prevention (DC), Nutrition Guidelines for People with COPD (DC) Additional Instructions: 1. Follow-up with primary dog daycare provider in 5-10 days 2. Optimize independence and safety in the home with support from family and home care PT and OT to assess and intervene as warranted Activity Level: Activity as Tolerated Discharge Diet: Regular Follow Up Appointments: Mica Sellers DO [Primary Care Provider, Family Practice] - 03/22/25 1:20 pm Referral Note: [facility] for follow up with PCP Forms: [employer] Info Instructions
== END 2025-03-19 12:30 | disposition home or self-care (01) | DRG 190 ==
LOC: ED 03-16 01:16 → MEDSURG 03-16 01:58
PROVIDERS: Family Medicine; Internal Medicine; Admitting Provider Internal Medicine; Emergency Provider Family Medicine; PCP Family Medicine; Visit Provider Internal Medicine
DX: J44.0 Chronic obstructive pulmonary disease with (acute) lower respiratory infection (principal); J96.01 Acute respiratory failure with hypoxia; E22.2 Syndrome of inappropriate secretion of antidiuretic hormone; J44.1 Chronic obstructive pulmonary disease with (acute) exacerbation; J20.8 Acute bronchitis due to other specified organisms; R60.0 Localized edema; I10 Essential (primary) hypertension; E03.9 Hypothyroidism, unspecified; Z87.891 Personal history of nicotine dependence; E86.0 Dehydration; E78.5 Hyperlipidemia, unspecified; K21.9 Gastro-esophageal reflux disease without esophagitis
CPT/HCPCS: 36415; 71046; 71275; 80053; 80069; 81001; 81003; 82330; 82803; 83605; 83735; 83880; 84145; 84443; 84484; 85025; 85027; 86140; 87081; 87086; 87449; 87631; 87899; 93971; 94664; 94761; 97161; 99284; 99285; A9270; J0456; J0613; J0696; J1650; J2919; J7030; J7050; J7512; Q9967